=== PATIENT | female | born 1940 | race Caucasian/White ===

== ENCOUNTER 2018-07-28 19:17 | Observation (INO) | payer OTHER ==
--- NOTE | 2018-07-28 20:21 | RAD REPORT ---
EXAM DESCRIPTION: RAD - Chest Single View - 07/28/2018 8:09 pm CLINICAL HISTORY: SWELLING Chest pain. COMPARISON: CHEST SINGLE VIEW dated 07/29/2009 FINDINGS: Portable technique limits examination quality. The lungs are grossly clear. The heart is normal in size. No displaced fractures. IMPRESSION: No acute intrathoracic process suspected.
[2018-07-28 20:23] LABS: Absolute Lymphocytes (CBC) 1.3 K/uL (0.7-4.9); Absolute Monocytes 0.6 K/uL (0.1-1.3); Absolute Neutrophil 3.3 K/uL (1.8-8.0); Basophils % 0.8 % (0-1.3); Hematocrit 36.2 % (36.0-45.0); Lymphocytes % 23.2 % (15.3-44.8); MPV 8.2 fL (7.6-11.3); Monocytes % 11.5 % (3.3-12.3); RBC Red Blood Cell Count 3.94 M/uL (3.86-4.86)
[2018-07-28 20:24] LABS: Protime INR 1.03
[2018-07-28 20:46] LABS: ALT/SGPT 18 U/L (12-78); AST/SGOT 8 U/L (15-37); Albumin 3.5 g/dL (3.4-5.0); Alkaline Phosphatase 75 U/L (45-117); BUN Blood Urea Nitrogen 10 mg/dL (7-18); Bicarbonate 29 mmol/L (21-32); Bilirubin Direct 0.1 mg/dL (0-0.2); Bilirubin Total 0.4 mg/dL (0.2-1.0); Glucose Level 101 mg/dL (74-106); Magnesium 2.2 mg/dL (1.8-2.4); NT PRO-BNP 842 pg/mL (<450); Potassium 4.6 mmol/L (3.5-5.1); Protein, Total 6.7 g/dL (6.4-8.2); Sodium Level 141 mmol/L (136-145); Troponin (Emerg Dept Use Only) < 0.02 ng/mL (0.0-0.045)
--- NOTE | 2018-07-28 21:10 | RAD REPORT ---
EXAM DESCRIPTION: US - Extrem Venous W Compress Cody - 07/28/2018 8:53 pm CLINICAL HISTORY: Pain;Swelling Bilateral leg edema and swelling. COMPARISON: No comparisons TECHNIQUE: Real-time sonographic interrogation of the left and right lower extremity deep venous sys tems was performed. FINDINGS: No evidence of right-sided DVT. Echogenic material with partial compressibility noted left common femoral vein and proximal superficial femoral vein compatible with thrombus. IMPRESSION: Positive for left sided DVT as detailed.
--- NOTE | 2018-07-28 21:15 | ER ---
Nurse's Notes [facility] Name: Rekha Harrell Age: 77 yrs Sex: Female : 1940 Arrival Date: 07/28/2018 Time: 19:18 Bed 8 Private MD: Diagnosis: Acute embolism and thrombosis of other specified deep vein of left lower extremity;Edema, unspecified;Obesity, unspecified;Unspecified combined systolic (congestive) and diastolic (congestive) heart failure Presentation: 07/28 19:25 Presenting complaint: EMS states: Reports she was out of meds for a month and has been ea having leg swelling for a week, pt reported her legs were hurting from swelling. Transition of care: patient was not received from another setting of care. Onset of symptoms was July 28, 2018. Risk Assessment: Do you want to hurt yourself or someone else? Patient reports no desire to harm self or others. Initial Sepsis Screen: Does the patient meet any 2 criteria? No. Patient's initial sepsis screen is negative. Does the patient have a suspected source of infection? No. Patient's initial sepsis screen is negative. Care prior to arrival: None. 19:25 Method Of Arrival: EMS: [facility] ea 19:25 Acuity: RICCARDO 3 ea Historical: - Allergies: 19:31 No Known Allergies; ea - Home Meds: 19:31 Lasix 20 mg Oral tab 1 tab 2 times per day [Active]; Ranitidine Oral [Active]; ea - PMHx: 23:33 CHF; lp1 - PSHx: 23:33 Tubal ligation; lp1 - Immunization history:: Adult Immunizations up to date. - Social history:: Smoking status: Patient/guardian denies using tobacco. - Ebola Screening: : No symptoms or risks identified at this time. - Family history:: not pertinent. Screenin:28 Abuse screen: Denies threats or abuse. Nutritional screening: No deficits noted. ea Tuberculosis screening: No symptoms or risk factors identified. Fall Risk None identified. Assessment: 19:36 General: Appears uncomfortable, Behavior is calm, cooperative, appropriate for age. ea Pain: Complains of pain in right leg and left leg. Neuro: Level of Consciousness is awake, alert, obeys commands, Oriented to person, place, time, situation. Cardiovascular: Heart tones S1 S2 present Patient's skin is warm and dry. Cardiovascular: pitting edema noted to yuri lower extremities. Respiratory: Airway is patent Respiratory effort is even, unlabored, Respiratory pattern is regular, symmetrical, Breath sounds are clear bilaterally. Derm: Skin is normal, Skin temperature is warm. 20:31 Reassessment: Patient and/or family updated on plan of care and expected duration. Pain ea level reassessed. Patient is alert, oriented x 3, equal unlabored respirations, skin warm/dry/pink. 21:00 Reassessment: Patient and/or family updated on plan of care and expected duration. Pain ea level reassessed. Patient is alert, oriented x 3, equal unlabored respirations, skin warm/dry/pink. 22:00 Reassessment: Patient and/or family updated on plan of care and expected duration. Pain ea level reassessed. Patient is alert, oriented x 3, equal unlabored respirations, skin warm/dry/pink. 23:00 Reassessment: Patient and/or family updated on plan of care and expected duration. Pain ea level reassessed. Patient is alert, oriented x 3, equal unlabored respirations, skin warm/dry/pink. 07/29 00:00 Reassessment: Patient and/or family updated on plan of care and expected duration. Pain ea level reassessed. Patient is alert, oriented x 3, equal unlabored respirations, skin warm/dry/pink. Vital Signs: 07/28 19:27 BP 145 / 119; Pulse 83; Resp 20; Temp 97.8; Pulse Ox 100% ; Weight 102.06 kg; Height 5 ea ft. 1 in. (154.94 cm); Pain 8/10; 20:31 BP 131 / 68; Pulse 80; Resp 18; Pulse Ox 100% ; ea 21:00 BP 134 / 57; Pulse 71; Resp 13; Pulse Ox 99% on R/A; lp1 22:51 BP 128 / 53; Pulse 69; Resp 16; Pulse Ox 100% ; ea 23:42 BP 134 / 51; Pulse 69; Resp 17; Pulse Ox 100% on R/A; lp1 07/29 00:00 BP 128 / 50; Pulse 70; Resp 18; Pulse Ox 99% ; ea 07/28 19:27 Body Mass Index 42.51 (102.06 kg, 154.94 cm) ea ED Course: 07/28 19:18 Patient arrived in ED. al2 19:24 Radha García, RN is Primary Nurse. ea 19:26 Triage completed. ea 19:27 Arm band placed on right wrist. Patient placed in an exam room, on a stretcher, on ea pulse oximetry. 19:27 Patient has correct armband on for positive identification. Placed in gown. Bed in low ea position. Call light in reach. Side rails up X2. 19:34 Gigi Goss MD is Attending Physician. [facility] 20:09 XRAY Chest (1 view) In Process Unspecified. EDMS 20:15 Inserted saline lock: 20 gauge in right antecubital area, using aseptic technique. oe Blood collected. 20:52 US Extremity Venous W Compression Yuri In Process Unspecified. EDMS 21:13 Philip Aguillon MD is Hospitalizing Provider. [facility] 21:[address] via stretcher. wy 21:31 CT completed. Patient tolerated procedure well. Patient moved back from CT. 2 22:52 No provider procedures requiring assistance completed. Patient admitted, IV remains in ea place. Administered Medications: 22:09 Drug: Lovenox 100 mg Route: Sub-Q; Site: right lower abdomen; ea 22:36 Follow up: Response: No adverse reaction ea 22:50 Drug: Potassium Effervescent Tablet 25 mEq Route: PO; ea 23:41 Follow up: Response: No adverse reaction lp1 22:51 Drug: Lasix 20 mg Route: IVP; Site: right antecubital; ea 23:46 Follow up: Response: No adverse reaction lp1 Outcome: 21:15 Decision to Hospitalize by Provider. [facility] 23:42 Condition: stable lp1 23:42 Instructed on the need for admit. 23:45 Admitted to Med/surg accompanied by tech, via wheelchair, room 215, with chart, Report lp1 called to PHILIP Milian 07/29 00:10 Patient left the ED. ea Signatures: Dispatcher [employer] EDWI Gigi Goss MD MD cha Pena, Laura, RN RN lp1 Karlo Nieves Orlando oe McGuire, Victoria 2 Radha García, RN Rossy Chavez ea
--- NOTE | 2018-07-28 21:16 | EDPHYS ---
Physician Documentation [facility] Name: Rekha Harrell Age: 77 yrs Sex: Female : 1940 Arrival Date: 07/28/2018 Time: 19:18 Bed 8 Private MD: ED Physician Gigi Goss HPI: 07/28 19:53 This 77 yrs old Female presents to ER via EMS with complaints of lower karissa extremity swelling. 19:53 The patient presents with pain, swelling, tenderness. The complaints affect the right karissa leg and left leg. Context: The problem was sustained at an unknown site. Onset: The symptoms/episode began/occurred 5 day(s) ago. Modifying factors: The symptoms are alleviated by elevating leg, remaining still, the symptoms are aggravated by movement, weight bearing, bending knee. Associated signs and symptoms: The patient has no apparent associated signs or symptoms. The patient presents with decreased range of motion. The complaints affect the right leg and left leg. Historical: - Allergies: 19:31 No Known Allergies; ea - Home Meds: 19:31 Lasix 20 mg Oral tab 1 tab 2 times per day [Active]; Ranitidine Oral [Active]; ea - PMHx: 23:33 CHF; lp1 - PSHx: 23:33 Tubal ligation; lp1 - Immunization history:: Adult Immunizations up to date. - Social history:: Smoking status: Patient/guardian denies using tobacco. - Ebola Screening: : No symptoms or risks identified at this time. - Family history:: not pertinent. ROS: 19:53 Constitutional: Negative for fever, chills, and weight loss, Eyes: Negative for injury, karissa pain, redness, and discharge, ENT: Negative for injury, pain, and discharge, Neck: Negative for injury, pain, and swelling, Cardiovascular: Negative for chest pain, palpitations, and edema, Respiratory: Negative for shortness of breath, cough, wheezing, and pleuritic chest pain, Abdomen/GI: Negative for abdominal pain, nausea, vomiting, diarrhea, and constipation, Back: Negative for injury and pain, : Negative for injury, bleeding, discharge, and swelling, Skin: Negative for injury, rash, and discoloration, Neuro: Negative for headache, weakness, numbness, tingling, and seizure, Psych: Negative for depression, anxiety, suicide ideation, homicidal ideation, and hallucinations, Allergy/Immunology: Negative for hives, rash, and allergies, Endocrine: Negative for neck swelling, polydipsia, polyuria, polyphagia, and marked weight changes, Hematologic/Lymphatic: Negative for swollen nodes, abnormal bleeding, and unusual bruising. 19:53 MS/extremity: Positive for decreased range of motion, pain, swelling, tenderness, of the right leg and left leg. Exam: 19:53 Constitutional: This is a well developed, well nourished patient who is awake, alert, karissa and in no acute distress. Head/Face: Normocephalic, atraumatic. Eyes: Pupils equal round and reactive to light, extra-ocular motions intact. Lids and lashes normal. Conjunctiva and sclera are non-icteric and not injected. Cornea within normal limits. Periorbital areas with no swelling, redness, or edema. ENT: Nares patent. No nasal discharge, no septal abnormalities noted. Tympanic membranes are normal and external auditory canals are clear. Oropharynx with no redness, swelling, or masses, exudates, or evidence of obstruction, uvula midline. Mucous membranes moist. Neck: Trachea midline, no thyromegaly or masses palpated, and no cervical lymphadenopathy. Supple, full range of motion without nuchal rigidity, or vertebral point tenderness. No Meningismus. Chest/axilla: Normal chest wall appearance and motion. Nontender with no deformity. No lesions are appreciated. Cardiovascular: Regular rate and rhythm with a normal S1 and S2. No gallops, murmurs, or rubs. Normal PMI, no JVD. No pulse deficits. Respiratory: Lungs have equal breath sounds bilaterally, clear to auscultation and percussion. No rales, rhonchi or wheezes noted. No increased work of breathing, no retractions or nasal flaring. Abdomen/GI: Soft, non-tender, with normal bowel sounds. No distension or tympany. No guarding or rebound. No evidence of tenderness throughout. Back: No spinal tenderness. No costovertebral tenderness. Full range of motion. Female : Normal external genitalia. Skin: Warm, dry with normal turgor. Normal color with no rashes, no lesions, and no evidence of cellulitis. Neuro: Awake and alert, GCS 15, oriented to person, place, time, and situation. Cranial nerves II-XII grossly intact. Motor strength 5/5 in all extremities. Sensory grossly intact. Cerebellar exam normal. Normal gait. Psych: Awake, alert, with orientation to person, place and time. Behavior, mood, and affect are within normal limits. 19:53 Musculoskeletal/extremity: Extremities: pain, swelling, ROM: full active range of motion, full passive range of motion, Circulation is intact in all extremities. Sensation intact. Compartment Syndrome exam of affected extremity: is normal. DVT Exam: negative Homans' sign noted on exam, no appreciated bluish discoloration, no erythema, no increased warmth, pain, swelling, tenderness. Vital Signs: 19:27 BP 145 / 119; Pulse 83; Resp 20; Temp 97.8; Pulse Ox 100% ; Weight 102.06 kg; Height 5 ea ft. 1 in. (154.94 cm); Pain 8/10; 20:31 BP 131 / 68; Pulse 80; Resp 18; Pulse Ox 100% ; ea 21:00 BP 134 / 57; Pulse 71; Resp 13; Pulse Ox 99% on R/A; lp1 22:51 BP 128 / 53; Pulse 69; Resp 16; Pulse Ox 100% ; ea 23:42 BP 134 / 51; Pulse 69; Resp 17; Pulse Ox 100% on R/A; lp1 07/29 00:00 BP 128 / 50; Pulse 70; Resp 18; Pulse Ox 99% ; ea 07/28 19:27 Body Mass Index 42.51 (102.06 kg, 154.94 cm) ea MDM: 07/28 19:35 Patient medically screened. [facility] 19:56 Data reviewed: vital signs, nurses notes, lab test result(s), EKG, radiologic studies, [facility] plain films, ultrasound. 07/28 19:47 Order name: Basic Metabolic Panel; Complete Time: 20:59 ea 07/28 19:47 Order name: CBC with Diff; Complete Time: 20:46 07/28 19:47 Order name: LFT's; Complete Time: 20:59 ea 07/28 19:47 Order name: Magnesium; Complete Time: 20:59 ea 07/28 19:47 Order name: NT PRO-BNP; Complete Time: 20:59 07/28 19:47 Order name: PT-INR; Complete Time: 20:46 07/28 19:47 Order name: Troponin (emerg Dept Use Only); Complete Time: 20:59 07/28 19:47 Order name: XRAY Chest (1 view); Complete Time: 20:46 07/28 19:53 Order name: Lipase [facility] 07/28 19:53 Order name: US Extremity Venous W Compression Cody; Complete Time: 21:13 [facility] 07/28 19:53 Order name: Urine Culture [facility] 07/28 19:54 Order name: Lipase; Complete Time: 20:46 EDMS 07/28 21:12 Order name: Urine Dipstick--Ancillary (enter results); Complete Time: 22:22 em1 07/28 21:13 Order name: CT Chest For PE Angio [facility] 07/28 19:47 Order name: EKG; Complete Time: 19:48 07/28 19:47 Order name: Cardiac monitoring; Complete Time: 21:13 07/28 19:47 Order name: EKG - Nurse/Tech; Complete Time: 21:13 07/28 19:47 Order name: IV Saline Lock; Complete Time: 21:13 07/28 19:47 Order name: Labs collected and sent; Complete Time: 21:14 07/28 19:47 Order name: O2 Per Protocol; Complete Time: 21:14 07/28 19:47 Order name: O2 Sat Monitoring; Complete Time: 21:14 07/28 19:53 Order name: Urine Dipstick-Ancillary (obtain specimen); Complete Time: 21:11 [facility] 07/28 21:53 Order name: CT; Complete Time: 22:22 EDMS Administered Medications: 22:09 Drug: Lovenox 100 mg Route: Sub-Q; Site: right lower abdomen; ea 22:36 Follow up: Response: No adverse reaction ea 22:50 Drug: Potassium Effervescent Tablet 25 mEq Route: PO; ea 23:41 Follow up: Response: No adverse reaction lp1 22:51 Drug: Lasix 20 mg Route: IVP; Site: right antecubital; ea 23:46 Follow up: Response: No adverse reaction lp1 Disposition: 07/28/18 21:15 Hospitalization ordered by Philip Aguillon for Observation. Preliminary diagnosis are Acute embolism and thrombosis of other specified deep vein of left lower extremity, Edema, unspecified, Obesity, unspecified, Unspecified combined systolic (congestive) and diastolic (congestive) heart failure. - Bed requested for Telemetry/MedSurg (observation). - Status is Observation. ea - Condition is Stable. - Problem is new. - Symptoms have improved. UTI on Admission? No Signatures: Dispatcher [employer] EDGigi Helton MD MD cha Pena, Laura RN RN lp1 Lolita Christianson RN RN Radha García RN RN ea Corrections: (The following items were deleted from the chart) : 21:15 Hospitalization Ordered by Philip Aguillon MD for Observation. Preliminary cg diagnosis is Acute embolism and thrombosis of other specified deep vein of left lower extremity; Edema, unspecified; Obesity, unspecified. Bed requested for Telemetry/MedSurg (observation). Status is Observation. Condition is Stable. Problem is new. Symptoms have improved. UTI on Admission? No. karissa 23:21 22:28 07/28/2018 21:15 Hospitalization Ordered by Philip Aguillon MD for Observation. karissa Preliminary diagnosis is Acute embolism and thrombosis of other specified deep vein of left lower extremity; Edema, unspecified; Obesity, unspecified. Bed requested for Telemetry/MedSurg (observation). Status is Observation. Condition is Stable. Problem is new. Symptoms have improved. UTI on Admission? No. cg 07/29 00:10 07/28 23:21 07/28/2018 21:15 Hospitalization Ordered by Philip Aguillon MD for ea Observation. Preliminary diagnosis is Acute embolism and thrombosis of other specified deep vein of left lower extremity; Edema, unspecified; Obesity, unspecified; Unspecified combined systolic (congestive) and diastolic (congestive) heart failure. Bed requested for Telemetry/MedSurg (observation). Status is Observation. Condition is Stable. Problem is new. Symptoms have improved. UTI on Admission? No. karissa
[2018-07-28] MEDS ORDERED: ENOXAPARIN 100 MG/ML SYR SQ ONE (21:47)
[2018-07-28] MEDS ORDERED: ONDANSETRON 4 MG/2 ML VIAL IV PRN (21:48)
[2018-07-28] MEDS ORDERED: MORPHINE 4 MG/ML SYR IV PRN (21:48)
--- NOTE | 2018-07-28 21:52 | RAD REPORT ---
EXAM DESCRIPTION: CT - Chest For Pe Angio - 07/28/2018 9:32 pm CLINICAL HISTORY: Chest pain. DYSPNEA COMPARISON: No comparisons TECHNIQUE: CT angiogram of the pulmonary arteries was performed with MIP. All CT scans are performed using dose optimization technique as appropriate and may include automated exposure control or mA/KV adjustment according to patient size. FINDINGS: No evidence of pulmonary thromboembolism. No acute aortic finding demonstrated. Mild pulmonary edema is suspected. No significant pericardial or pleural fluid. No concerning bony finding. IMPRESSION: No evidence of pulmonary thromboembolism. Mild CHF.
[2018-07-28 21:53] LABS: Urine Blood TRACE (NEG); Urine Glucose NEGATIVE (NEG); Urine Protein NEGATIVE (NEG)
[2018-07-28] MEDS ORDERED: FUROSEMIDE 20 MG/ 2ML VIAL ONE (22:47)
[2018-07-28] MEDS ORDERED: POTASSIUM 25 MEQ EFFERV TAB ONE (22:47)
[2018-07-29] MEDS: NA CHLORIDE 0.9% 1,000 ML IV SCH ×2 (01:09→11:20)
[2018-07-29] MEDS: ACETAMINOPHEN 500 MG TAB PO PRN ×2 (05:54→18:19)
--- NOTE | 2018-07-29 05:58 | EKG ---
Test Date: 2018-07-28 Test Time: 20:15:38 Title One Reading Teacher: EVELYN MEASUREMENT RESULTS: Intervals: Rate: 68 ID: [id number] QRSD: 74 QT: 442 QTc: 469 [place]: P: 38 ID: [id number] QRS: 12 T: 22 INTERPRETIVE STATEMENTS: Normal sinus rhythm Normal ECG Compared to ECG 07/29/2009 17:37:45 ST (T wave) deviation no longer present Electronically Signed On 07-29-18 05:58:03 FIELD PARTY MANAGER by Ric Bernal
[2018-07-29 06:39] LABS: Absolute Lymphocytes (CBC) 1.8 K/uL (0.7-4.9); Absolute Monocytes 0.8 K/uL (0.1-1.3); Absolute Neutrophil 3.8 K/uL (1.8-8.0); Eosinophils % 2.4 % (0-4.4); Hematocrit 32.2 % (36.0-45.0); Lymphocytes % 27.4 % (15.3-44.8); MPV 8.5 fL (7.6-11.3); Monocytes % 11.4 % (3.3-12.3); RBC Red Blood Cell Count 3.55 M/uL (3.86-4.86)
[2018-07-29 06:42] LABS: Protime INR 1.09
[2018-07-29 06:54] LABS: Bilirubin Total 0.4 mg/dL (0.2-1.0); Potassium 3.9 mmol/L (3.5-5.1); Protein, Total 5.5 g/dL (6.4-8.2)
--- NOTE | 2018-07-29 09:35 | P.HP ---
Certification for Inpatient Patient admitted to: Observation With expected LOS: <2 Midnights Patient will require the following post-hospital care: None Practitioner: I am a practitioner with admitting privileges, knowledge of patient current condition, hospital course, and medical plan of care. Services: Services provided to patient in accordance with Admission requirements found in Title 42 Section 412.3 of the Code of Federal Regulations Patient History Date of Service: 07/28/18 Reason for admission: Lower extremity DVT History of Present Illness: Patient is 77-year-old female who was at home and noticed swelling in her left leg. It has been getting gradually worse for the last few days. It got to a point where she started having some pain since she came into the ER. She states she has been mobile. Denies any immobility. Has not been on any flights. She came into the hospital for further evaluation. in the ER was found have a DVT. She will be start on anti coagulation and admitted to the hospital for observation Allergies No Known Allergies Allergy (Verified 07/29/18 00:26) Home Medications: Calcium Carbonate/Vitamin D3 [Calcium 600-Vit D3 200 Tablet] 1 tab PO BID Cholecalciferol (Vitamin D3) [Vitamin D3] 1 tab PO BID 07/29/18 Furosemide [Lasix] 40 mg PO BID 07/29/18 Ranitidine [Zantac] 150 mg PO BID 07/29/18 - Past Medical/Surgical History Has patient received pneumonia vaccine in the past: Yes Diabetic: No -: Hiatal Hernia -: CHF -: Knee Replacement -: Tubal ligation - Family History Father Family History: Reviewed- Non-Contributory - Social History Smoking Status: Never smoker Alcohol use: No CD- Drugs: No Caffeine use: Yes Place of Residence: Home Review of Systems 10-point ROS is otherwise unremarkable Physical Examination - Vital Signs Temperature: 98.1 F Blood Pressure: 126/60 Pulse: 78 Respirations: 16 Pulse Ox (%): 98 - Physical Exam General: Alert, In no apparent distress, Oriented x3 HEENT: Atraumatic, PERRLA, Mucous membr. moist/pink, EOMI, Sclerae nonicteric Neck: Supple, 2+ carotid pulse no bruit, No LAD, Without JVD or thyroid abnormality Respiratory: Clear to auscultation bilaterally, Normal air movement Cardiovascular: Regular rate/rhythm, Normal S1 S2, No rubs, No murmurs Gastrointestinal: Normal bowel sounds, Soft and benign, Non-distended, No tenderness Musculoskeletal: Swelling, Tenderness Integumentary: No rashes Neurological: Normal gait, Normal speech, Normal strength at 5/5 x4 extr, Normal tone, Sensation intact, Cranial nerves 3-12 intact, Normal affect Lymphatics: No axilla or inguinal lymphadenopathy - Studies Laboratory Data (last 24 hrs) 07/28/18 19:58: Lipase 64 L 07/28/18 19:58: PT 12.1, INR 1.03 07/28/18 19:58: WBC 5.5, Hgb 12.3, Hct 36.2, Plt Count 296 07/28/18 19:58: Sodium 141, Potassium 4.6, BUN 10, Creatinine 0.80, Glucose 101 , Magnesium 2.2, Total Bilirubin 0.4, AST 8 L, ALT 18, Alkaline Phosphatase 75 Assessment & Plan - Problems (Diagnosis) (1) Left leg DVT Current Visit: Yes Status: Acute (2) CHF (congestive heart failure) Current Visit: Yes Status: Acute - Plan Plan: 1. Anti coagulation 2. Diuretic 3. Monitor volume intake 4. GI and DVT prophylax Discharge Plan: Home Plan to discharge in: 24 Hours - Advance Directives Does patient have a Living Will: No Does patient have a Durable POA for Healthcare: No - Code Status/Comfort Care Code Status Assessed: Yes Code Status: Full Code Critical Care: No Time Spent Managing PTS Care (In Minutes): 45
[2018-07-29] MEDS: APIXABAN 5 MG TABLET PO SCH ×2 (09:52→20:26)
--- NOTE | 2018-07-29 13:02 | ECHO ---
HEIGHT: 5 ft 1 in WEIGHT: 240 lb 0 oz DATE OF STUDY: 07/29/[address]: Tarik Rodriguez MD 2-DIMENSIONAL: YES M.MODE: YES DOPPLER: YES COLOR FLOW: YES TDS: PORTABLE: DEFINITY: BUBBLE STUDY: DIAGNOSIS: LOWER EXTREMITY SWELLING CARDIAC HISTORY: CATHERIZATION: SURGERY: PROSTHETIC VALVE: PACEMAKER: MEASUREMENTS (cm) DIASTOLIC (NORMALS) SYSTOLIC (NORMALS) IVSd 1.2 (0.6-1.2) LA Diam 3.6 (1.9-4.0) LVEF 42% LVIDd 3.7 (3.5-5.7) LVIDs 2.9 (2.0-3.5) %FS 20% LVPWd 1.0 (0.6-1.2) Ao Diam 2.5 (2.0-3.7) 2 DIMENSIONAL ASSESSMENT: RIGHT ATRIUM: NORMAL LEFT ATRIUM: NORMAL RIGHT VENTRICLE: NORMAL LEFT VENTRICLE: NORMAL TRICUSPID VALVE: NORMAL MITRAL VALVE: MITRAL ANNULAR CALCIFICATION PULMONIC VALVE: NORMAL AORTIC VALVE: SCLEROSIS PERICARDIAL EFFUSION: NONE AORTIC ROOT: NORMAL LEFT VENTRICULAR WALL MOTION: NORMAL DOPPLER/COLOR FLOW: COMMENTS: NORMAL LEFT VENTRICULAR SIZE AND FUNCTION. NO WALL MOTION ABNORMALITY. AORTIC SCLEROSIS. MITRAL ANNULAR CALCIFICATION. TECHNOLOGIST: SHERITA LANDEROS
--- NOTE | 2018-07-29 18:21 | P.PN ---
Subjective Date of Service: 07/30/18 Chief Complaint: Lower extremity DVT Subjective: No new changes, No C/O voiced, Improving Patient seen and examined at bedside. No family at bedside. Chart reviewed and case discussed with nursing staff. Review of Systems As noted Physical Examination - Vital Signs Temperature: 98.3 F Blood Pressure: 134/61 Pulse: 74 Respirations: 18 Pulse Ox (%): 94 - Physical Exam General: Alert, In no apparent distress, Oriented x3 HEENT: Atraumatic, PERRLA, EOMI Neck: Supple, JVD not distended Respiratory: Clear to auscultation bilaterally, Normal air movement Cardiovascular: Regular rate/rhythm, Normal S1 S2, Edema (1+ bilaterally) Gastrointestinal: Normal bowel sounds, No tenderness Musculoskeletal: No tenderness Integumentary: No rashes Neurological: Normal speech, Normal tone, Normal affect Lymphatics: No axilla or inguinal lymphadenopathy - Studies Laboratory Data (last 24 hrs) 07/28/18 19:58: Lipase 64 L 07/28/18 19:58: PT 12.1, INR 1.03 07/28/18 19:58: WBC 5.5, Hgb 12.3, Hct 36.2, Plt Count 296 07/28/18 19:58: Sodium 141, Potassium 4.6, BUN 10, Creatinine 0.80, Glucose 101 , Magnesium 2.2, Total Bilirubin 0.4, AST 8 L, ALT 18, Alkaline Phosphatase 75 Assessment And Plan - Plan (1) Left leg DVT Current Visit: Yes Status: Acute (2) CHF (congestive heart failure) Diastolic, chronic - Plan Plan: 1. Anti coagulation with Elliquis 10 mg BID 2. Diuretic, IV lasix 3. Monitor volume intake 4. GI and DVT prophylax Dispo: Likely discharge home tomorrow. Discharge Plan: Home Plan to discharge in: 24 Hours Physician Review: Patient Assessed, Agree with Above Assessment and Plan Time Spent Managing PTS Care (In Minutes): 35
[2018-07-30] MEDS: NA CHLORIDE 0.9% 1,000 ML IV SCH (05:37)
[2018-07-30 07:38] LABS: Absolute Lymphocytes (CBC) 1.6 K/uL (0.7-4.9); Absolute Monocytes 0.5 K/uL (0.1-1.3); Basophils % 0.9 % (0-1.3); Hematocrit 31.8 % (36.0-45.0); Lymphocytes % 36.9 % (15.3-44.8); MPV 7.6 fL (7.6-11.3); Monocytes % 12.4 % (3.3-12.3)
[2018-07-30 07:58] LABS: Albumin 2.8 g/dL (3.4-5.0); Bilirubin Total 0.4 mg/dL (0.2-1.0); Potassium 3.7 mmol/L (3.5-5.1); Protein, Total 5.4 g/dL (6.4-8.2)
[2018-07-30] MEDS: APIXABAN 5 MG TABLET PO SCH (09:12)
--- NOTE | 2018-07-30 13:53 | P.SSS ---
Patient History Date of Service: 07/30/18 Reason for admission: Lower extremity DVT History of Present Illness: Patient is 77-year-old female who was at home and noticed swelling in her left leg. It has been getting gradually worse for the last few days. It got to a point where she started having some pain since she came into the ER. She states she has been mobile. Denies any immobility. Has not been on any flights. She came into the hospital for further evaluation. in the ER was found have a DVT. She will be start on anti coagulation and admitted to the hospital for observation Allergies No Known Allergies Allergy (Verified 07/29/18 00:26) Home Medications: RX: Calcium Carbonate/Vitamin D3 [Calcium 600-Vit D3 200 Tablet] 1 tab PO BID RX: Cholecalciferol (Vitamin D3) [Vitamin D3] 1 tab PO BID 07/29/18 RX: Furosemide [Lasix] 40 mg PO BID 07/29/18 RX: Ranitidine [Zantac*] 150 mg PO BID 07/29/18 RX: Apixaban [Eliquis] 10 mg PO BID #60 tablet 07/30/18 - Past Medical/Surgical History Has patient received pneumonia vaccine in the past: Yes Diabetic: No -: Hiatal Hernia -: CHF -: Knee Replacement -: Tubal ligation - Social History Smoking Status: Never smoker Alcohol use: No CD- Drugs: No Caffeine use: Yes Place of Residence: Home Physical Examination - Vital Signs Temperature: 98.3 F Blood Pressure: 134/61 Pulse: 74 Respirations: 18 Pulse Ox (%): 94 - Studies Microbiology Data (last 24 hrs): 07/28/18 21:00 Clean Catch Urine [place] Count - Final BETWEEN 10,000 & 100,000 CFU/ML 07/28/18 21:00 Clean Catch Urine - Final Treatment Summary: Patient was admitted for bilateral lower extremity swelling and was found to have left leg DVT. She was started on eliquis 10 mg BID along with IV lasix. Her symptoms improved . She remained hemodynamically stable throughtout the stay. She was discharged on eliquis 10 mg BID and with instructions to follow up with her Primary care physician in 1 week. Risks vs benefits for anticoagulation explained to patient. She should be on AC for at least 3 months. Patient seen by occupational therapy for home safety evaluation, cleared for discharge without any further OT recommendations. - Disposition Condition: GOOD Patient Discharge Instructions: Please follow up with your primary care physician in 1 week. Please follow up with a technician anatomic pathology in 2-3 weeks. New medications: Prescription for Elliquis (blood thinner) sent to your pharmacy. Diet: AHA (Fluid restriction to) Activity: Ad feng Physician Review: Patient Assessed, Agree with Above Assessment and Plan Time Spent Managing Pts Care (In Minutes): 55
== END 2018-07-30 14:32 | disposition home or self-care (01) ==
LOC: ER 19:17 → ERHOLD 21:15 → 2ND 23:49
PROVIDERS: ADMIT Hospitalist; ATTEND Hospitalist
DX: I82.412 Acute embolism and thrombosis of left femoral vein (principal); I50.32 Chronic diastolic (congestive) heart failure; Z96.659 Presence of unspecified artificial knee joint
CPT/HCPCS: 36415 ×2; 71045; 71275; 80048; 80053 ×2; 80076; 81003; 83690; 83735; 83880; 84484; 85025 ×3; 85610 ×2; 85730; 87086; 87088; 93005; 93306; 93970; 96372; 96374; 97166; 99285; G0378 ×2; J1650; J1940; J7030 ×3; Q9967

== ENCOUNTER 2018-11-28 23:02 | Observation (INO) | payer MEDICARE, OTHER ==
[2018-11-29 00:46] LABS: Absolute Lymphocytes (CBC) 1.7 K/uL (0.7-4.9); Absolute Monocytes 0.7 K/uL (0.1-1.3); Absolute Neutrophil 4.3 K/uL (1.8-8.0); Basophils % 0.7 % (0-1.3); Eosinophils % 1.5 % (0-4.4); Hematocrit 40.7 % (36.0-45.0); Lymphocytes % 24.5 % (15.3-44.8); MPV 8.7 fL (7.6-11.3); Monocytes % 9.9 % (3.3-12.3); RBC Red Blood Cell Count 4.55 M/uL (3.86-4.86)
[2018-11-29] MEDS ORDERED: NA CHLORIDE 0.9% 1,000 ML ONE (00:48)
[2018-11-29 00:49] LABS: Protime INR 1.31
[2018-11-29 01:13] LABS: ALT/SGPT 19 U/L (12-78); AST/SGOT 10 U/L (15-37); Albumin 3.9 g/dL (3.4-5.0); Alkaline Phosphatase 51 U/L (45-117); BUN Blood Urea Nitrogen 54 mg/dL (7-18); Bicarbonate 30 mmol/L (21-32); Bilirubin Direct 0.1 mg/dL (0-0.2); Bilirubin Total 0.4 mg/dL (0.2-1.0); Glucose Level 109 mg/dL (74-106); Magnesium 2.3 mg/dL (1.8-2.4); Potassium 3.7 mmol/L (3.5-5.1); Protein, Total 7.2 g/dL (6.4-8.2); Sodium Level 143 mmol/L (136-145); Troponin (Emerg Dept Use Only) < 0.02 ng/mL (0.0-0.045)
--- NOTE | 2018-11-29 01:51 | ER ---
Nurse's Notes [facility] Name: Rekha Harrell Age: 77 yrs Sex: Female : 1940 Arrival Date: 11/28/2018 Time: 23:06 Bed 5 Private MD: Diagnosis: Hypotension;Chronic combined systolic (congestive) and diastolic (congestive) heart failure;Acute kidney failure Presentation: 11/28 23:21 Presenting complaint: Patient states: she has been feeling dizzy since she started bb taking allopurinol she stopped taking it and symptoms improved but she started taking it again and the dizziness has not improved pt is getting to the point of not being able to stand up and almost fell today. Transition of care: patient was not received from another setting of care. Onset of symptoms was November 28, 2018. Risk Assessment: Do you want to hurt yourself or someone else? Patient reports no desire to harm self or others. Initial Sepsis Screen: Does the patient meet any 2 criteria? No. Patient's initial sepsis screen is negative. Does the patient have a suspected source of infection? No. Patient's initial sepsis screen is negative. Care prior to arrival: None. 23:21 Method Of Arrival: Wheelchair bb 23:21 Acuity: RICCARDO 2 bb Historical: - Allergies: 23:26 No Known Allergies; bb - Home Meds: 23:26 ranitidine HCl 150 mg oral tab 1 tab 2 times per day [Active]; Lasix 40 mg oral tab 2 bb tabs 2 times per day [Active]; allopurinol 100 mg Oral tab 1 tab once daily [Active]; lisinopril 40 mg Oral tab 1 tab once daily [Active]; Eliquis 5 mg oral tab 1 tab 2 times per day [Active]; Vitamins D and B [Active]; Calcium [Active]; - PMHx: 23:26 CHF; Gout; Hypertension; DVT; bb - PSHx: 23:26 Tubal ligation; Cholecystectomy; Knee surgery; cataracts; bb - Immunization history:: Adult Immunizations up to date. - Social history:: Smoking status: Patient/guardian denies using tobacco. - Ebola Screening: : No symptoms or risks identified at this time. Screenin/22 00:46 Abuse screen: Denies threats or abuse. Nutritional screening: No deficits noted. tl2 Tuberculosis screening: No symptoms or risk factors identified. Fall Risk IV access (20 points). Assessment: 11/28 23:40 General: Appears in no apparent distress. comfortable, Behavior is calm, cooperative, tl2 appropriate for age. Pain: Denies pain. Neuro: Level of Consciousness is awake, alert, obeys commands, Oriented to person, place, time, situation, Reports dizziness. Cardiovascular: Denies chest pain. Respiratory: Airway is patent Respiratory effort is even, unlabored, Respiratory pattern is regular, symmetrical. GI: No signs and/or symptoms were reported involving the gastrointestinal system. : No signs and/or symptoms were reported regarding the genitourinary system. Derm: Skin is pink, warm \T\ dry. 11/29 00:30 Reassessment: Patient appears in no apparent distress at this time. Patient and/or tl2 family updated on plan of care and expected duration. Pain level reassessed. Patient is alert, oriented x 3, equal unlabored respirations, skin warm/dry/pink. 02:00 Reassessment: Patient appears in no apparent distress at this time. Patient and/or tl2 family updated on plan of care and expected duration. Pain level reassessed. Patient is alert, oriented x 3, equal unlabored respirations, skin warm/dry/pink. 03:30 Reassessment: Patient appears in no apparent distress at this time. Patient and/or tl2 family updated on plan of care and expected duration. Pain level reassessed. Patient is alert, oriented x 3, equal unlabored respirations, skin warm/dry/pink. VO from Dr. Verma to give 1 additional liter bolus. 04:36 Reassessment: Patient appears in no apparent distress at this time. pt stable and ready tl2 for transport to floor. Vital Signs: 11/28 23:26 BP 103 / 39 LA Sitting (auto/lg); Pulse 74; Resp 16 S; Temp 97.7(O); Pulse Ox 99% on bb R/A; Weight 101.6 kg (R); Height 5 ft. 1 in. (154.94 cm) (R); Pain 0/10; 23:26 BP 87 / 49 RA Sitting (auto/lg); bb 11/29 00:46 BP 92 / 50; Pulse 69; Resp 18; Pulse Ox 98% on R/A; tl2 01:44 BP 120 / 55; Pulse 72; Resp 18; Pulse Ox 99% on R/A; tl2 02:54 BP 108 / 45; Pulse 68; Resp 18; Pulse Ox 98% on R/A; tl2 03:53 BP 92 / 51; Pulse 68; Resp 18; Pulse Ox 97% on R/A; tl2 03:53 BP 101 / 50; Pulse 66; Resp 17; Pulse Ox 99% on R/A; mt 11/28 23:26 Body Mass Index 42.32 (101.60 kg, 154.94 cm) bb ED Course: 11/28 23:06 Patient arrived in ED. es 23:23 Triage completed. bb 23:26 Arm band placed on Patient placed in an exam room, on a stretcher, on pulse oximetry. bb Family accompanied patient. 23:53 Saqib Lui PA is PHCP. jr8 23:53 Yuri Weber MD is Attending Physician. jr8 11/29 00:37 Initial lab(s) drawn, by me, sent to lab. Inserted saline lock: 22 gauge in left bb antecubital area, using aseptic technique. Blood collected. 00:45 Kaylyn Castillo, PHILIP is Primary Nurse. tl2 00:46 Patient has correct armband on for positive identification. Placed in gown. Bed in low tl2 position. Call light in reach. Side rails up X2. Adult w/ patient. 01:49 Anastasiia Butcher MD is Hospitalizing Provider. jr8 02:03 X-ray completed. Portable x-ray completed in exam room. Patient tolerated procedure kw well. 02:06 XRAY Chest (1 view) In Process Unspecified. EDMS 04:36 No provider procedures requiring assistance completed. Patient admitted, IV remains in tl2 place. Administered Medications: 00:45 Drug: NS 0.9% 500 ml Route: IV; Rate: bolus; Site: left antecubital; tl2 01:45 Follow up: IV Status: Completed infusion; IV Intake: 500ml tl2 03:15 Drug: NS 0.9% 1000 ml Route: IV; Rate: 1 bolus; Site: left antecubital; tl2 04:38 Follow up: IV Status: Completed infusion; IV Intake: 1000ml tl2 Intake: 01:45 IV: 500ml; Total: 500ml. tl2 04:38 IV: 1000ml; Total: 1500ml. tl2 Outcome: 01:49 Decision to Hospitalize by Provider. jr8 04:36 Admitted to Tele accompanied by nurse, family with patient, via stretcher, room 405, tl2 with chart, Report called to PHILIP Hamilton 04:36 Condition: stable 04:36 Discharge instructions given to patient, Instructed on the need for admit. 04:39 Patient left the ED. tl2 Signatures: Dispatcher [employer] Jenae Monzon Brenda, RN RN Jenelle Carlson Josh, PA PA jr8 Kaylyn Castillo RN RN tl2 Elsa Looney mt
--- NOTE | 2018-11-29 01:51 | EDPHYS ---
Physician Documentation [facility] Name: Rekha Harrell Age: 77 yrs Sex: Female : 1940 Arrival Date: 11/28/2018 Time: 23:06 Bed 5 Private MD: ED Physician Yuri Weber HPI: 11/29 00:23 This 77 yrs old Female presents to ER via Wheelchair with complaints of jr8 Dizziness, Shoulder Pain. 00:23 The patient presents with feeling faint. Onset: The symptoms/episode began/occurred jr8 gradually, 3 week(s) ago, and became worse 2 day(s) ago. Context: occurred at home, occurred while the patient was standing. Modifying factors: The symptoms are alleviated by lying down, the symptoms are aggravated by nothing. Associated signs and symptoms: Pertinent positives: shortness of breath. Severity of symptoms: At their worst the symptoms were moderate in the emergency department the symptoms are unchanged. Patient's baseline: Neuro: alert and fully oriented, Motor: no deficits, Ambulation: walks without assistance, Speech: normal. The patient has not experienced similar symptoms in the past. The patient has not recently seen a physician. Patient stated that she has had dizziness with standing for over three weeks now. Worse over the past two days. Patient describes it as a since of being lightheaded and wanting to pass out. More short of breath with exertion as well . Historical: - Allergies: 11/28 23:26 No Known Allergies; bb - Home Meds: 23:26 ranitidine HCl 150 mg oral tab 1 tab 2 times per day [Active]; Lasix 40 mg oral tab 2 bb tabs 2 times per day [Active]; allopurinol 100 mg Oral tab 1 tab once daily [Active]; lisinopril 40 mg Oral tab 1 tab once daily [Active]; Eliquis 5 mg oral tab 1 tab 2 times per day [Active]; Vitamins D and B [Active]; Calcium [Active]; - PMHx: 23:26 CHF; Gout; Hypertension; DVT; bb - PSHx: 23:26 Tubal ligation; Cholecystectomy; Knee surgery; cataracts; bb - Immunization history:: Adult Immunizations up to date. - Social history:: Smoking status: Patient/guardian denies using tobacco. - Ebola Screening: : No symptoms or risks identified at this time. ROS: 11/29 00:23 Eyes: Negative for injury, pain, redness, and discharge, ENT: Negative for injury, jr8 pain, and discharge, Neck: Negative for injury, pain, and swelling, Cardiovascular: Negative for chest pain, palpitations, and edema, Abdomen/GI: Negative for abdominal pain, nausea, vomiting, diarrhea, and constipation, Back: Negative for injury and pain, MS/Extremity: Negative for injury and deformity, Skin: Negative for injury, rash, and discoloration. Respiratory: Positive for dyspnea on exertion, shortness of breath, Negative for cough, hemoptysis, orthopnea, sputum production, wheezing. Neuro: Positive for dizziness, near syncope. Exam: 00:23 Eyes: Pupils equal round and reactive to light, extra-ocular motions intact. Lids and jr8 lashes normal. Conjunctiva and sclera are non-icteric and not injected. Cornea within normal limits. Periorbital areas with no swelling, redness, or edema. ENT: Nares patent. No nasal discharge, no septal abnormalities noted. Tympanic membranes are normal and external auditory canals are clear. Oropharynx with no redness, swelling, or masses, exudates, or evidence of obstruction, uvula midline. Mucous membranes moist. Neck: Trachea midline, no thyromegaly or masses palpated, and no cervical lymphadenopathy. Supple, full range of motion without nuchal rigidity, or vertebral point tenderness. No Meningismus. Cardiovascular: Regular rate and rhythm with a normal S1 and S2. No gallops, murmurs, or rubs. Normal PMI, no JVD. No pulse deficits. Respiratory: Lungs have equal breath sounds bilaterally, clear to auscultation and percussion. No rales, rhonchi or wheezes noted. No increased work of breathing, no retractions or nasal flaring. Abdomen/GI: Soft, non-tender, with normal bowel sounds. No distension or tympany. No guarding or rebound. No evidence of tenderness throughout. Back: No spinal tenderness. No costovertebral tenderness. Full range of motion. Skin: Warm, dry with normal turgor. Normal color with no rashes, no lesions, and no evidence of cellulitis. MS/ Extremity: Pulses equal, no cyanosis. Neurovascular intact. Full, normal range of motion. Neuro: Awake and alert, GCS 15, oriented to person, place, time, and situation. Cranial nerves II-XII grossly intact. Motor strength 5/5 in all extremities. Sensory grossly intact. Cerebellar exam normal. Normal gait. Vital Signs: 11/28 23:26 BP 103 / 39 LA Sitting (auto/lg); Pulse 74; Resp 16 S; Temp 97.7(O); Pulse Ox 99% on bb R/A; Weight 101.6 kg (R); Height 5 ft. 1 in. (154.94 cm) (R); Pain 0/10; 23:26 BP 87 / 49 RA Sitting (auto/lg); bb 11/29 00:46 BP 92 / 50; Pulse 69; Resp 18; Pulse Ox 98% on R/A; tl2 01:44 BP 120 / 55; Pulse 72; Resp 18; Pulse Ox 99% on R/A; tl2 02:54 BP 108 / 45; Pulse 68; Resp 18; Pulse Ox 98% on R/A; tl2 03:53 BP 92 / 51; Pulse 68; Resp 18; Pulse Ox 97% on R/A; tl2 03:53 BP 101 / 50; Pulse 66; Resp 17; Pulse Ox 99% on R/A; mt 11/28 23:26 Body Mass Index 42.32 (101.60 kg, 154.94 cm) MDM: 11/28 23:53 Patient medically screened. [facility] 11/29 01:46 Data reviewed: vital signs, nurses notes, lab test result(s), EKG, radiologic studies, [facility] plain films, and as a result, I will discharge patient. Data interpreted: Pulse oximetry: on room air is 99 %. Interpretation: normal. Counseling: I had a detailed discussion with the patient and/or guardian regarding: the historical points, exam findings, and any diagnostic results supporting the discharge/admit diagnosis, lab results, radiology results, the need for further work-up and treatment in the hospital. 11/29 00:03 Order name: Basic Metabolic Panel; Complete Time: :37 11/29 00:03 Order name: CBC with Diff; Complete Time: 00:55 11/29 00:03 Order name: LFT's; Complete Time: :37 11/29 00:03 Order name: Magnesium; Complete Time: :11/29 00:03 Order name: NT PRO-BNP; Complete Time: 01:37 11/29 00:03 Order name: PT-INR; Complete Time: 00:55 11/29 00:03 Order name: Troponin (emerg Dept Use Only); Complete Time: 01:37 11/29 00:03 Order name: XRAY Chest (1 view) 11/29 00:04 Order name: EKG; Complete Time: 00:06 11/29 00:04 Order name: Cardiac monitoring; Complete Time: 00:45 11/29 00:04 Order name: EKG - Nurse/Tech; Complete Time: 00:44 11/29 00:04 Order name: IV Saline Lock; Complete Time: 00:35 11/29 00:04 Order name: Labs collected and sent; Complete Time: 00:35 11/29 00:04 Order name: O2 Per Protocol; Complete Time: 00:18 11/29 00:04 Order name: O2 Sat Monitoring; Complete Time: 00:18 Administered Medications: 00:45 Drug: NS 0.9% 500 ml Route: IV; Rate: bolus; Site: left antecubital; tl2 01:45 Follow up: IV Status: Completed infusion; IV Intake: 500ml tl2 03:15 Drug: NS 0.9% 1000 ml Route: IV; Rate: 1 bolus; Site: left antecubital; tl2 04:38 Follow up: IV Status: Completed infusion; IV Intake: 1000ml tl2 Disposition: 11/30 01:32 Co-signature as Attending Physician, Yuri Weber MD. Disposition: 11/29/18 01:49 Hospitalization ordered by Anastasiia Butcher for Inpatient Admission. Preliminary diagnosis are Hypotension, Chronic combined systolic (congestive) and diastolic (congestive) heart failure, Acute kidney failure. - Bed requested for Telemetry/MedSurg (Inpatient). - Status is Inpatient Admission. tl2 - Condition is Stable. - Problem is new. - Symptoms have improved. UTI on Admission? No Signatures: Dispatcher [employer] EDMS Leydi Alexis RN RN bb Roszak, Josh, PA PA jr8 Lolita Christianson RN RN cg Knox, Taylor, RN RN tl2 Yuri Weber MD MD gs Corrections: (The following items were deleted from the chart) 11/29 03:48 01:49 Hospitalization Ordered by Anastasiia Butcher MD for Inpatient Admission. Preliminary cg diagnosis is Hypotension; Chronic combined systolic (congestive) and diastolic (congestive) heart failure; Acute kidney failure. Bed requested for Telemetry/MedSurg (Inpatient). Status is Inpatient Admission. Condition is Stable. Problem is new. Symptoms have improved. UTI on Admission? No. jr8 04:39 03:48 11/29/2018 01:49 Hospitalization Ordered by Anastasiia Butcher MD for Inpatient tl2 Admission. Preliminary diagnosis is Hypotension; Chronic combined systolic (congestive) and diastolic (congestive) heart failure; Acute kidney failure. Bed requested for Telemetry/MedSurg (Inpatient). Status is Inpatient Admission. Condition is Stable. Problem is new. Symptoms have improved. UTI on Admission? No. cg
--- NOTE | 2018-11-29 03:16 | P.HP ---
Certification for Inpatient Patient admitted to: Observation With expected LOS: <2 Midnights Practitioner: I am a practitioner with admitting privileges, knowledge of patient current condition, hospital course, and medical plan of care. Services: Services provided to patient in accordance with Admission requirements found in Title 42 Section 412.3 of the Code of Federal Regulations Patient History Date of Service: 11/29/18 Reason for admission: acute renal injury, volume depletion History of Present Illness: Mr Harrell is a 77 years old woman with history of HTN, gout, GERD, CHF, last ECHO done in 07/27 showing EF 42%, she is anticoagulated with Eliquis due to history of DVT, who came to ED complaining of dizziness. She blame her symptoms to Allopurinol, since she start taking that about 1 month ago. She is also taking Lasix 80 mg daily and 3 month ago start taking lisinopril 40 mg daily. The patient states that her dizziness are mostly when she is standing up. She denied nausea, vomiting, chest pain or SOB. No fever or chills. The patient states that she is drinking a lot of water. Lab work remarkable for celevated creatinine 2.51 (last recorded in 07/27 creatinine was 0.7). Her BP was on the lower side 87/49 HR 74. At my encounter she was on non-distress, still symptomatic. Allergies No Known Allergies Allergy (Verified 07/29/18 00:26) Home medications list reviewed: Yes Home Medications: Calcium Carbonate/Vitamin D3 [Calcium 600-Vit D3 200 Tablet] 1 tab PO BID Cholecalciferol (Vitamin D3) [Vitamin D3] 1 tab PO BID 07/29/18 Furosemide [Lasix] 40 mg PO BID 07/29/18 Ranitidine [Zantac*] 150 mg PO BID 07/29/18 Apixaban [Eliquis] 10 mg PO BID 30 Days #120 tablet 07/30/18 - Past Medical/Surgical History Diabetic: No -: Hiatal Hernia -: CHF -: history of DVT -: gout -: Knee Replacement -: Tubal ligation -: cholecystectomy -: cataracts - Social History Smoking Status: Never smoker Alcohol use: No CD- Drugs: No Caffeine use: Yes Place of Residence: Home Review of Systems 10-point ROS is otherwise unremarkable Physical Examination - Physical Exam General: Alert, In no apparent distress HEENT: Atraumatic, PERRLA, Mucous membr. moist/pink, EOMI, Sclerae nonicteric Neck: Supple, 2+ carotid pulse no bruit, No LAD, Without JVD or thyroid abnormality Respiratory: Clear to auscultation bilaterally, Normal air movement Cardiovascular: Regular rate/rhythm, Normal S1 S2, Systolic murmur (3/6 aortic area) Gastrointestinal: Normal bowel sounds, No tenderness Musculoskeletal: No tenderness Integumentary: No rashes Neurological: Normal speech, Normal strength at 5/5 x4 extr, Normal tone, Normal affect Lymphatics: No axilla or inguinal lymphadenopathy - Studies Laboratory Data (last 24 hrs) 11/29/18 00:30: PT 15.3 H, INR 1.31 11/29/18 00:30: WBC 6.8, Hgb 13.7, Hct 40.7, Plt Count 303 11/29/18 00:30: Sodium 143, Potassium 3.7, BUN 54 H, Creatinine 2.51 H, Glucose 109 H, Magnesium 2.3, Total Bilirubin 0.4, AST 10 L, ALT 19, Alkaline Phosphatase 51 Assessment and Plan - Problems (Diagnosis) (1) Acute renal injury Current Visit: Yes Status: Acute (2) Volume depletion Current Visit: Yes Status: Acute (3) History of DVT (deep vein thrombosis) Current Visit: Yes Status: Acute (4) Gout Current Visit: Yes Status: Acute Qualifiers: Gout site: unspecified site Gout etiology: unspecified cause Chronicity: chronic Presence of tophus: without tophus Qualified Code(s): [id number].[id number] - Chronic gout, unspecified, without tophus (tophi) (5) GERD (gastroesophageal reflux disease) Current Visit: Yes Status: Acute Qualifiers: Esophagitis presence: esophagitis presence not specified Qualified Code(s) : K21.9 - Gastro-esophageal reflux disease without esophagitis - Plan The patient will be admitted to the hospital due to dizziness in context of volume depletion, leading with acute renal injury, perhaps acute on CKD at this point. The patient medication combination might be the etiology of her symptoms. Will order a new ECHO, IV fluids and nephrology consult. She needs to adjust medication and dose before discharge home. - Advance Directives Does patient have a Living Will: No Does patient have a Durable POA for Healthcare: No - Code Status/Comfort Care Code Status Assessed: Yes Code Status: Full Code
[2018-11-29] MEDS ORDERED: NA CHLORIDE 0.9% 500 ML ONE (03:51)
[2018-11-29] MEDS ORDERED: ONDANSETRON 4 MG/2 ML VIAL IV PRN (04:35)
[2018-11-29] MEDS: NA CHLORIDE 0.9% 1,000 ML IV SCH ×3 (05:08→19:00)
[2018-11-29 05:29] LABS: Urine Appearance CLOUDY; Urine Bilirubin NEGATIVE (NEG); Urine Blood NEGATIVE (NEG); Urine Color YELLOW; Urine Glucose NEGATIVE (NEG); Urine Protein NEGATIVE (NEG); Urine Specific Gravity 1.015 (1.005-1.030); Urine Urobilinogen 0.2 mg/dL (0.2-1.0)
[2018-11-29 05:32] LABS: Urine Microscopic Reflex ORDER UMIC
[2018-11-29 06:01] LABS: Urine Bacteria 20-50 /HPF (<20); Urine Culture Reflex Order REFLEXED; Urine RBC NONE SEEN /HPF (NONE SEEN)
--- NOTE | 2018-11-29 07:44 | EKG ---
Test Date: 2018-11-29 Test Time: 00:41:43 Regenerator Operator: MARGIE MEASUREMENT RESULTS: Intervals: Rate: 63 AL: 188 QRSD: 82 QT: 424 QTc: 433 [place]: P: 33 AL: 188 QRS: 11 T: 24 INTERPRETIVE STATEMENTS: Normal sinus rhythm Normal ECG Compared to ECG 07/28/2018 20:15:38 no significant change from previous ECG Electronically Signed On 11-29-18 07:43:22 CDT by Ric Bernal
--- NOTE | 2018-11-29 09:01 | RAD REPORT ---
EXAM DESCRIPTION: RAD - Chest Single View - 11/29/2018 2:06 am CLINICAL HISTORY: Dyspnea, past history of CHF COMPARISON: July 2018 TECHNIQUE: AP portable chest image was obtained 0059 hours . FINDINGS: No focal lung parenchymal process. Lung markings are similar to comparison. Heart and vasc ulature are normal. No measurable pleural effusion and no pneumothorax. No acute bony abnormality see n. No acute aortic findings suspected. IMPRESSION: No acute cardiopulmonary process. No significant interval change.
--- NOTE | 2018-11-29 09:48 | RAD REPORT ---
EXAM DESCRIPTION: US - Renal Ultrasound-Complete - 11/29/2018 9:27 am CLINICAL HISTORY: Acute kidney injury COMPARISON: CT study July 2009 FINDINGS: The right kidney measures 8.9 x 3.2 x 4.7 cm. The left kidney measures 8.2 x 4.1 x 3.6 cm . Renal cortical thickness and echogenicity are normal. No hydronephrosis or suspicious renal mass. Bladder imaging was limited. IMPRESSION: No hydronephrosis or suspicious renal mass. Cortical thickness and echogenicity are not outside of normal range.
[2018-11-29] MEDS ORDERED: KCL 20 MEQ/100 mL IVPB 20 MEQ/100 ML BAG IV SCH (12:00)
[2018-11-29 12:15] LABS: Urine Protein/Creatinine Ratio 0.12 ratio (<0.15)
--- NOTE | 2018-11-29 16:39 | CON ---
Date of Consultation: 11/29/2018 Additional Consulting Physician: Dr. Mercer. Reason For Consultation: Elevated BUN and creatinine, fluid management. History Of Present Illness: This is a pleasant 77-year-old female with a significant past medical hi story of hypertension, congestive heart failure, nonischemic, ejection fraction back in July 2018 , 42%, GERD, DVT on anticoagulation, the patient came, was in her regular state of health up to almos t 10 days when she visited with her primary care, found to have elevated uric acid. At that time, th e patient was started on allopurinol. The patient started feeling sick. For that reason, she was st opped, then rechallenged, again she felt sick, but after stopping again the allopurinol did not feel well. Still with nausea, occasional vomiting, no diarrhea. For that reason, the patient was directe d to come to the emergency room. On the emergency room, the patient found to have elevated BUN and c reatinine, creatinine up to 2.5. For that reason, the patient was admitted and we have been consulte d. The patient denied taking any nonsteroidal, no IV contrast, no new medication except the allopuri nol. According to her, she has been on Lasix and lisinopril for a long time. No fever or chills. T he patient was started on IV fluids. The patient denied any mouth ulcer. Denies any rashes. Past Medical History: Include; 1.Nonischemic congestive heart failure. 2.GERD. 3.DVT. 4.Hypertension. Social History: Denies smoking. Denies drinking. Denies drug abuse. Family History: Positive for hypertension. Past Surgical History: Include knee replacement, tubal ligation and cholecystectomy. Home Medications: Include calcium with vitamin D, cholecalciferol, Lasix 40 three times a day, ranit idine and Eliquis, allopurinol. Review of Systems: Head and Neck: No red eye. No ear pain. : No polyuria, no dysuria, no hematuria. 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 Respiratory: Has no shortness of breath. Cardiovascular: No chest pain. Endocrine: No polydipsia. Skin: No rash. GI: Has nausea without any vomiting. Skin: No rash. Neuro: No neuropathy. Musculoskeletal: Has knee pain. Physical Examination: Vital Signs: When I saw the patient, blood pressure 98/49, pulse of 64. Afebrile. Chest: Clear to auscultation. Heart: S1 and S2. Systolic murmur. Abdomen: Soft, nontender. Extremities: No edema. Laboratory Data: Sodium 143, potassium 3.7, bicarb 30, BUN 54, creatinine 2.5, calcium 9.6, albumin 3.9. WBC 6.8, H and H 13.7/40.7, platelets 303, neutrophil 63, eosinophil 1.5%, absolute count of th e eosinophilia is 100. Urinalysis specific gravity of 1.015, WBC of 10, bacteria of 50. Chest x-ray , interstitial infiltration. Renal ultrasound, small kidney bilateral of 8.9 and 8.2. Current Medications: The patient on include IV fluid 100 per hour, allopurinol. Assessment And Plan: Acute kidney injury on normal kidney function back in July possible AIN/pre renal secondary to over diuresis. 1.I agree with holding the diuresis. I am going to send for serology and will send for urine eosino rodrick. We will start the patient on IV fluid and we will follow up. 2.Given the present of the anemia, I am going to send for SPEP. 3.Hypertension, currently hypotension. Hold all the blood pressure medications especially STEPHANIE inhib itor and Lasix. Continue IV fluid. 4.Gout, given the possibility of AIN, DC allopurinol. 5.DVT with current kidney function, I am going to decrease the Eliquis to 2.5. 6.Hypokalemia, I am going to supplement cautiously and we will follow up the lab of the patient. 7.Gastroenteritis. Continue symptomatic treatment. Thank you, Dr. Mercer, for allowing us to participate in the care of your patient. WIL Voice ID: [id number] Report ID: [id number]
[2018-11-29] MEDS: APIXABAN 2.5 MG TABLET PO SCH (20:47)
[2018-11-29] MEDS ORDERED: APIXABAN 5 MG TABLET PO SCH (21:00)
[2018-11-30] MEDS: NA CHLORIDE 0.9% 1,000 ML IV SCH (01:07)
[2018-11-30 04:37] LABS: RBC Red Blood Cell Count 3.69 M/uL (3.86-4.86)
[2018-11-30 05:18] LABS: Ferritin 340.7 ng/mL (8-388); Folic Acid, (Folate) 17.4 ng/mL (3.1-17.5); Phosphorus 2.2 mg/dL (2.5-4.9); Potassium 4.2 mmol/L (3.5-5.1); Thyroid Stimulating Hormone 3.06 uIU/mL (0.360-3.740)
[2018-11-30 07:37] LABS: Rheumatoid Factor NEG (NEG)
[2018-11-30] MEDS ORDERED: ALLOPURINOL 100 MG TAB PO SCH (09:00)
[2018-11-30] MEDS: APIXABAN 2.5 MG TABLET PO SCH ×2 (09:19→20:49)
--- NOTE | 2018-11-30 11:52 | P.PN ---
Subjective Date of Service: 11/30/18 Chief Complaint: acute renal injury, volume depletion Subjective: Tolerating diet, Ambulating, Improving, Working w/ PT, Doing well Review of Systems 10-point ROS is otherwise unremarkable Physical Examination - Vital Signs Temperature: 97.4 F Blood Pressure: 111/50 Pulse: 63 Respirations: 20 Pulse Ox (%): 99 - Physical Exam General: Alert, In no apparent distress HEENT: Atraumatic, PERRLA, EOMI Neck: Supple, JVD not distended Respiratory: Clear to auscultation bilaterally, Normal air movement Cardiovascular: Regular rate/rhythm, Normal S1 S2 Gastrointestinal: Normal bowel sounds, No tenderness Musculoskeletal: No tenderness Integumentary: No rashes Neurological: Normal speech, Normal tone, Normal affect Lymphatics: No axilla or inguinal lymphadenopathy - Studies Medications List Reviewed: Yes Assessment And Plan - Current Problems (Diagnosis) (1) UTI (urinary tract infection) Current Visit: Yes Status: Acute Plan: UA with concern for UTI. Urine culture pending -Prelim + for gram - rods -Started on iv rocephin -Will switch when culture results Qualifiers: Urinary tract infection type: acute cystitis Hematuria presence: without hematuria Qualified Code(s): N30.00 - Acute cystitis without hematuria (2) Acute renal injury Current Visit: Yes Status: Acute Plan: EV 2.2 to Volume depletion vs Medication -Held losartan and allopurinol for now -IV fluids per nephrology reccs -Lab work and Imaging done to r.o other intrinsic caused of EV (3) GERD (gastroesophageal reflux disease) Current Visit: Yes Status: Chronic Qualifiers: Esophagitis presence: esophagitis presence not specified Qualified Code(s) : K21.9 - Gastro-esophageal reflux disease without esophagitis (4) History of DVT (deep vein thrombosis) Current Visit: Yes Status: Chronic Discharge Plan: Home Plan to discharge in: 48 Hours - Code Status/Comfort Care Code Status Assessed: Yes Critical Care: No
--- NOTE | 2018-11-30 12:05 | ECHO ---
HEIGHT: 5 ft 1 in WEIGHT: 218 lb 6.4 oz DATE OF STUDY: 11/29/[address]: Anastasiia Verma MD 2-DIMENSIONAL: YES M.MODE: YES DOPPLER: YES COLOR FLOW: YES TDS: NO PORTABLE: NO DEFINITY: NO BUBBLE STUDY: NO DIAGNOSIS: SYSTOLIC MURMUR CARDIAC HISTORY: CATHERIZATION: SURGERY: PROSTHETIC VALVE: PACEMAKER: MEASUREMENTS (cm) DIASTOLIC (NORMALS) SYSTOLIC (NORMALS) IVSd 0.9 (0.6-1.2) LA Diam 3.7 (1.9-4.0) LVEF 53% LVIDd 4.1 (3.5-5.7) LVIDs 3.0 (2.0-3.5) %FS 27% LVPWd 0.9 (0.6-1.2) Ao Diam 2.6 (2.0-3.7) 2 DIMENSIONAL ASSESSMENT: RIGHT ATRIUM: NORMAL LEFT ATRIUM: NORMAL RIGHT VENTRICLE: NORMAL LEFT VENTRICLE: NORMAL TRICUSPID VALVE: NORMAL MITRAL VALVE: NORMAL PULMONIC VALVE: NORMAL AORTIC VALVE: SCLEROSIS PERICARDIAL EFFUSION: NONE AORTIC ROOT: NORMAL LEFT VENTRICULAR WALL MOTION: NORMAL DOPPLER/COLOR FLOW: MILD TRICUSPID REGURGITATION. NORMAL RIGHT VENTRICULAR SYSTOLIC PRESSURE. COMMENTS: NORMAL 2D ECHOCARDIOGRAM. MILD TRICUSPID REGURGITATION. AORTIC SCLEROSIS WITH NO STENOSIS. TECHNOLOGIST: Agnieszka FLANAGAN
[2018-11-30] MEDS ORDERED: CEFTRIAXONE/SWI 1gm 1 GM/10 ML SYR IV SCH (12:30)
--- NOTE | 2018-11-30 19:04 | PN ---
Date of Progress Note: 11/30/2018 Subjective: The patient was admitted with acute kidney injury, possible of prerenal/AL, to rule out AIN secondary to allopurinol. Physical Examination: Vital Signs: When I saw the patient, blood pressure was 104/45, pulse of 71. The patient had good urine output. Chest: Clear to auscultation. Heart: S1, S2. Systolic murmur. Abdomen: Soft, nontender. Extremities: No edema. Laboratory Data: H and H 13.7/40.7, platelets 303. Eosinophil just 100. Sodium 148, potassium 4.2, bicarb 26, BUN down to 41, creatinine down to 148. GFR up to 34. TSAT of 34. Ferritin 340. PTH 190. TSH 3.6. Folate within normal limit. PC ratio 0.1. Serology still pending. Urine eosinophil still pending. Current Medications: The patient on ceftriaxone, Eliquis, Zofran. Urine culture growing gram negative. Renal ultrasound; ovarian cyst 8.9/8.2. Kidney size, no hydro. Assessment And Plan: 1. Acute kidney injury secondary to prerenal, given improvement doubt to be as AIN. We will keep holding hydration. We will continue to monitor. 2. Urinary tract infection. I agree with ceftriaxone. We will follow up with primary. Follow up culture. Giving the sepsis picture of the patient and the acute kidney injury, I am going to increase ceftriaxone to 2 g daily and we will follow up the patient. 3. Hypertension, currently hypotension secondary to sepsis, secondary to UTI, urosepsis as above. Keep holding blood pressure medication. WIL Voice ID: [id number] Report ID: [id number] [facility]ITALNathen
[2018-11-30] MEDS: CEFTRIAXONE/SWI 1gm 1 GM/10 ML SYR IVP SCH (20:49)
[2018-12-01 04:40] LABS: Phosphorus 2.1 mg/dL (2.5-4.9); Potassium 4.4 mmol/L (3.5-5.1)
[2018-12-01] MEDS ORDERED: CEFTRIAXONE 1 GM/NS 50 ML 1 GM/50 ML BAG IV SCH (09:00)
[2018-12-01] MEDS: CEFTRIAXONE/SWI 1gm 1 GM/10 ML SYR IVP SCH (10:29)
[2018-12-01] MEDS: APIXABAN 2.5 MG TABLET PO SCH (10:29)
--- NOTE | 2018-12-01 11:20 | P.SSS ---
Patient History Date of Service: 12/01/18 Reason for admission: acute renal injury, volume depletion History of Present Illness: Mr Harrell is a 77 years old woman with history of HTN, gout, GERD, CHF, last ECHO done in 07/27 showing EF 42%, she is anticoagulated with Eliquis due to history of DVT, who came to ED complaining of dizziness. She blame her symptoms to Allopurinol, since she start taking that about 1 month ago. She is also taking Lasix 80 mg daily and 3 month ago start taking lisinopril 40 mg daily. The patient states that her dizziness are mostly when she is standing up. She denied nausea, vomiting, chest pain or SOB. No fever or chills. The patient states that she is drinking a lot of water. Lab work remarkable for celevated creatinine 2.51 (last recorded in 07/27 creatinine was 0.7). Her BP was on the lower side 87/49 HR 74. At my encounter she was on non-distress, still symptomatic. Allergies No Known Allergies Allergy (Verified 07/29/18 00:26) Home Medications: RX: Allopurinol [Zyloprim*] 100 mg PO DAILY 11/29/18 RX: Apixaban [Eliquis *] 5 mg PO BID 11/29/18 RX: Furosemide [Lasix*] 40 mg PO BIDL 11/29/18 RX: Ranitidine [Zantac*] 150 mg PO BID 11/29/18 levoFLOXacin [Levaquin] 500 mg PO DAILY #14 tab 12/01/18 - Past Medical/Surgical History Has patient received pneumonia vaccine in the past: Yes Diabetic: No -: Hiatal Hernia -: CHF -: history of DVT -: gout -: Knee Replacement -: Tubal ligation -: cholecystectomy -: cataracts - Social History Smoking Status: Never smoker Alcohol use: No CD- Drugs: No Caffeine use: Yes Place of Residence: Home Review of Systems 10-point ROS is otherwise unremarkable Physical Examination - Vital Signs Temperature: 97.5 F Blood Pressure: 97/49 Pulse: 66 Respirations: 17 Pulse Ox (%): 98 - Physical Exam General: Alert, In no apparent distress HEENT: Atraumatic, PERRLA, Mucous membr. moist/pink, EOMI, Sclerae nonicteric Neck: Supple, 2+ carotid pulse no bruit, No LAD, Without JVD or thyroid abnormality Respiratory: Clear to auscultation bilaterally, Normal air movement Cardiovascular: Regular rate/rhythm, Normal S1 S2 Gastrointestinal: Normal bowel sounds, No tenderness Musculoskeletal: No tenderness Integumentary: No rashes Neurological: Normal gait, Normal speech, Normal strength at 5/5 x4 extr, Normal tone, Normal affect Lymphatics: No axilla or inguinal lymphadenopathy - Diagnosis (Problem(s)) (1) UTI (urinary tract infection) Current Visit: Yes Status: Resolved Plan: UA with concern for UTI. Resolved now -culture positive for E. coli sensitive to p.o. medication -Dc home on p.o. Levaquin. Bactrim and Augmentin were not considered due to recent acute kidney injury Qualifiers: Urinary tract infection type: acute cystitis Hematuria presence: without hematuria Qualified Code(s): N30.00 - Acute cystitis without hematuria (2) Acute renal injury Current Visit: Yes Status: Acute Plan: EV 2.2 to Volume depletion vs Medication. Resolved now -nephrology on board agree with discharge home today -hold lisinopril on discharge -BUN creatinine improved markedly today (3) GERD (gastroesophageal reflux disease) Current Visit: Yes Status: Chronic Qualifiers: Esophagitis presence: esophagitis presence not specified Qualified Code(s) : K21.9 - Gastro-esophageal reflux disease without esophagitis (4) History of DVT (deep vein thrombosis) Current Visit: Yes Status: Chronic Treatment Summary: Overall she did well while here in the hospital Patient was initially admitted to the hospital for acute kidney injury most likely secondary to dehydration versus medications versus urinary tract infection. Patient was started on IV fluids here in the hospital had marked improvement in her BUN and creatinine. Was also started on antibiotics for UTI. Urine culture was positive for E. coli and thus was switched over to p.o. Levaquin. Patient then was discharged home under stable condition when she was doing well. Patient was asked to stop taking her lisinopril continued taking her Lasix only. Patient was also asked to follow up with primary care provider to discuss polypharmacy and see if she can be taken off of couple other medication that could be harmful for her kidneys if her blood pressure is controlled. Patient demonstrate understanding and thus was discharged home under stable condition - Disposition Disposition: ROUTINE DISCHARGE Condition: GOOD Patient Discharge Instructions: Please f.u with PCP And Nephrology in 1 to 2 week post discharge. New medication. levaquin 500mg daily Diet: Regular Activity: Ad feng
--- NOTE | 2018-12-01 15:50 | PN ---
Date of Progress Note: 12/01/2018 Subjective: The patient was admitted with sepsis, UTI, acute kidney injury. Physical Examination: Vital Signs: When I saw the patient blood pressure 112/50, pulse of 65, afebrile. Chest: Clear to auscultation. Heart: S1 and S2, regular. Abdomen: Soft and nontender. Extremities: Trace edema. Laboratory Data: WBC 6.8, H and H 13.7/40.7, platelet of 303. Sodium 146, potassium 4.4, bicarb 23, BUN 33, creatinine down to 1.3 close to her baseline, GFR of 40, calcium 8.1, phosphorus 2.1. Current Medications: The patient on its include: 1.Ceftriaxone. 2.Eliquis. 3.Zofran. Assessment And Plan: 1.Acute kidney injury as above, multifactorial. Prerenal. Toxic acute tubular necrosis secondary t o urinary tract infection. Poor perfusion, ATN. AIN has been ruled out. I am going to keep holding IV fluid. The patient cleared from the renal standpoint for discharge planning. 2.Urinary tract infection secondary to Escherichia coli. We will discontinue ceftriaxone. We will switch the patient to Augmentin. 3.Atrial fibrillation. Given the improvement in the kidney function, we can go back to 5 mg for the time being of the Eliquis. 4.Hypertension, currently blood pressure on the lower side with the presence of acute kidney injury. Hold all blood pressure medication. Again, the patient cleared from the renal standpoint for discharge planning to follow up in the office in 2 weeks. WIL Voice ID: [id number] Report ID: [id number]
[2018-12-01] MEDS ORDERED: AMOX/K CLAV 875 MG TAB PO SCH (21:00)
[2018-12-01] MEDS ORDERED: APIXABAN 5 MG TABLET PO SCH (21:00)
[2018-12-02 16:19] LABS: HIV AG/AB 4TH GEN Non-reactive (Non-reactive)
[2018-12-02 20:15] LABS: Hepatitis C Virus RNA (PCR)log <1.18 log IU/mL
[2018-12-03 05:13] LABS: HBsAG Nonreactive (Nonreactive)
[2018-12-05 12:53] LABS: P-ANCA Anti-Myeloperoxidase Ab <1.0 AI (<1.0)
[2018-12-05 22:41] LABS: Alpha-1-Globulins 0.2 g/dL (0.2-0.3); Alpha-2-Globulins 0.5 g/dL (0.5-0.9); Gamma Globulins 0.7 g/dL (0.8-1.7); INTERPRETATION REPORT
[2018-12-08 18:45] LABS: Scleroderma Antibody (Scl-70) <1.0 AI (<1.0)
== END 2018-12-01 13:20 | disposition home or self-care (01) ==
LOC: ER 23:02 → ERHOLD 11-29 02:55 → 4TH 11-29 04:03
PROVIDERS: ADMIT Internal Medicine; ATTEND Internal Medicine
DX: N30.00 Acute cystitis without hematuria (principal); B96.20 Unspecified Escherichia coli [E. coli] as the cause of diseases classified elsewhere; N17.9 Acute kidney failure, unspecified; K21.9 Gastro-esophageal reflux disease without esophagitis; E87.6 Hypokalemia; I11.0 Hypertensive heart disease with heart failure; I50.9 Heart failure, unspecified; Z86.718 Personal history of other venous thrombosis and embolism; Z96.659 Presence of unspecified artificial knee joint
CPT/HCPCS: 96361; 93005; 93306; 87088; 85025; 87086; 80048 ×2; 36415 ×3; 88108; 83735; 86430; 85610; 85044; 80076; 83520; 80069 ×2; 84443; 87077; 87186; 82570; 84484; 82728; 82746; 82607; 83540; 83970; 86704; 86317; 87389; 86038; 86225; 83880; 86160 ×2; 87340; 86706; 84156; 84466; 86235; 86021 ×2; 87522; 84165; 71045; 76770; 97116 ×3; 97161; 97530 ×2; 96360; 99285; J0696 ×3; J7030 ×4; G0378 ×2; 81003; 81015

== ENCOUNTER 2019-02-02 04:10 | Observation (INO) | payer MEDICARE, OTHER ==
[2019-02-02] MEDS ORDERED: NA CHLORIDE 0.9% 500 ML ONE (05:04)
[2019-02-02] MEDS ORDERED: THIAMINE 200 MG/2 ML INJ ONE (05:04)
[2019-02-02] MEDS ORDERED: ASPIRIN 81 MG CHEWABLE TABLET ONE (05:04)
[2019-02-02 05:35] LABS: Absolute Lymphocytes (CBC) 1.3 K/uL (0.7-4.9); Basophils % 0.5 % (0-1.3); Eosinophils % 0.9 % (0-4.4); Hematocrit 44.9 % (36.0-45.0); Lymphocytes % 14.9 % (15.3-44.8); MPV 8.4 fL (7.6-11.3); Monocytes % 9.1 % (3.3-12.3); RBC Red Blood Cell Count 4.93 M/uL (3.86-4.86)
[2019-02-02 05:36] LABS: Protime INR 1.27
--- NOTE | 2019-02-02 05:47 | EDPHYS ---
Physician Documentation [facility] Name: Rekha Harrell Age: 78 yrs Sex: Female : 1940 Arrival Date: 02/02/2019 Time: 04:16 Bed 8 Private MD: ED Physician Gigi Goss HPI: 02/02 04:22 This 78 yrs old Female presents to ER via Unassigned with complaints of karissa Syncope. 04:22 The patient has experienced syncope, collapsed. Onset: The symptoms/episode karissa began/occurred just prior to arrival. Duration: This was a single episode, that lasted 3 second(s). Context: the episode(s) was witnessed, by family, son. Associated injury: The patient did not suffer any apparent associated injury. Associated signs and symptoms: The patient has no apparent associated signs or symptoms. Current symptoms: Currently, the patient is not experiencing any symptoms. The patient has experienced similar episodes in the past, multiple times. Historical: - Allergies: 04:28 Allopurinol; lp1 - Home Meds: 04:28 Eliquis 5 mg Oral tab 1 tab 2 times per day [Active]; Lasix 40 mg Oral tab 2 tabs 2 lp1 times per day [Active]; ranitidine HCl 150 mg Oral tab 1 tab 2 times per day [Active]; - PMHx: 04:28 CHF; DVT; Gout; Hypertension; lp1 - PSHx: 04:28 Tonsillectomy; Cholecystectomy; Knee surgery; Appendectomy; lp1 - Immunization history:: Adult Immunizations up to date. - Social history:: Smoking status: Patient/guardian denies using tobacco. - Family history:: not pertinent. - Ebola Screening: : No symptoms or risks identified at this time. ROS: 04:22 Constitutional: Negative for fever, chills, and weight loss, Eyes: Negative for injury, karissa pain, redness, and discharge, ENT: Negative for injury, pain, and discharge, Neck: Negative for injury, pain, and swelling, Cardiovascular: Negative for chest pain, palpitations, and edema, Respiratory: Negative for shortness of breath, cough, wheezing, and pleuritic chest pain, Abdomen/GI: Negative for abdominal pain, nausea, vomiting, diarrhea, and constipation, Back: Negative for injury and pain, : Negative for injury, bleeding, discharge, and swelling, MS/Extremity: Negative for injury and deformity, Skin: Negative for injury, rash, and discoloration, Psych: Negative for depression, anxiety, suicide ideation, homicidal ideation, and hallucinations, Allergy/Immunology: Negative for hives, rash, and allergies, Endocrine: Negative for neck swelling, polydipsia, polyuria, polyphagia, and marked weight changes, Hematologic/Lymphatic: Negative for swollen nodes, abnormal bleeding, and unusual bruising. 04:22 Neuro: Positive for syncope, weakness. Exam: 04:22 Constitutional: This is a well developed, well nourished patient who is awake, alert, karissa and in no acute distress. Head/Face: Normocephalic, atraumatic. Eyes: Pupils equal round and reactive to light, extra-ocular motions intact. Lids and lashes normal. Conjunctiva and sclera are non-icteric and not injected. Cornea within normal limits. Periorbital areas with no swelling, redness, or edema. ENT: Nares patent. No nasal discharge, no septal abnormalities noted. Tympanic membranes are normal and external auditory canals are clear. Oropharynx with no redness, swelling, or masses, exudates, or evidence of obstruction, uvula midline. Mucous membranes moist. Neck: Trachea midline, no thyromegaly or masses palpated, and no cervical lymphadenopathy. Supple, full range of motion without nuchal rigidity, or vertebral point tenderness. No Meningismus. Chest/axilla: Normal chest wall appearance and motion. Nontender with no deformity. No lesions are appreciated. Cardiovascular: Regular rate and rhythm with a normal S1 and S2. No gallops, murmurs, or rubs. Normal PMI, no JVD. No pulse deficits. Respiratory: Lungs have equal breath sounds bilaterally, clear to auscultation and percussion. No rales, rhonchi or wheezes noted. No increased work of breathing, no retractions or nasal flaring. Abdomen/GI: Soft, non-tender, with normal bowel sounds. No distension or tympany. No guarding or rebound. No evidence of tenderness throughout. Back: No spinal tenderness. No costovertebral tenderness. Full range of motion. Female : Normal external genitalia. Skin: Warm, dry with normal turgor. Normal color with no rashes, no lesions, and no evidence of cellulitis. MS/ Extremity: Pulses equal, no cyanosis. Neurovascular intact. Full, normal range of motion. Neuro: Awake and alert, GCS 15, oriented to person, place, time, and situation. Cranial nerves II-XII grossly intact. Motor strength 5/5 in all extremities. Sensory grossly intact. Cerebellar exam normal. Normal gait. Psych: Awake, alert, with orientation to person, place and time. Behavior, mood, and affect are within normal limits. 04:22 Musculoskeletal/extremity: DVT Exam: No signs of deep vein thrombosis. no pain, no swelling, no tenderness, negative Homans' sign noted on exam, no appreciated bluish discoloration, no erythema, no increased warmth. 04:26 Neck: External neck: is normal, no acute changes, no bruits. [facility] 04:26 Cardiovascular: Rate: normal, Rhythm: regular, Pulses: no pulse deficits are appreciated, Heart sounds: normal, normal S1and S2, no S3 or S4, no murmur, no rub, no gallop, Edema: is not appreciated, JVD: is not appreciated. Vital Signs: 04:24 BP 142 / 75; Pulse 72; Resp 18; Temp 98.1(O); Pulse Ox 98% on R/A; Weight 102.06 kg; lp1 Height 5 ft. 1 in. (154.94 cm); Pain 0/10; 06:09 BP 125 / 57 Supine; Pulse 70; jd3 06:10 BP 111 / 77 Sitting; jd3 06:11 BP 141 / 83; Pulse 94; Resp 17 S; Pulse Ox 99% on R/A; Pain 0/10; jd3 08:16 BP 144 / 84; Pulse 87; Resp 16; Pulse Ox 100% on R/A; Pain 0/10; hb 09:00 BP 137 / 83; Pulse 88; Resp 16; Pulse Ox 98% on R/A; hb 04:24 Body Mass Index 42.51 (102.06 kg, 154.94 cm) 1 Procedures: 07:03 Peripheral line: by aseptic technique a peripheral line was placed in the left external karissa jugular vein. MDM: 04:19 Patient medically screened. [facility] 04:26 Data reviewed: vital signs, nurses notes, lab test result(s), EKG, radiologic studies, [facility] CT scan, plain films. 02/02 04:21 Order name: Basic Metabolic Panel [facility] 02/02 04:21 Order name: CBC with Diff [facility] 02/02 04:21 Order name: LFT's; Complete Time: 06:21 [facility] 02/02 04:21 Order name: Magnesium; Complete Time: 06:21 [facility] 02/02 04:21 Order name: NT PRO-BNP; Complete Time: 06:21 [facility] 02/02 04:21 Order name: PT-INR; Complete Time: 05:45 [facility] 02/02 04:21 Order name: Troponin (emerg Dept Use Only); Complete Time: 06:21 [facility] 02/02 04:21 Order name: Lipase; Complete Time: 06:21 [facility] 02/02 04:21 Order name: Urine Culture [facility] 02/02 04:21 Order name: ETOH Level; Complete Time: 06:21 [facility] 02/02 04:22 Order name: Basic Metabolic Panel; Complete Time: 06:21 [facility] 02/02 04:22 Order name: CBC with Automated Diff; Complete Time: 05:45 [facility] 02/02 04:53 Order name: D-Dimer; Complete Time: 06:21 [facility] 02/02 08:16 Order name: Urinalysis [facility] 02/02 04:21 Order name: XRAY Chest (1 view) [facility] 02/02 04:21 Order name: CT Head Brain wo Cont [facility] 02/02 07:47 Order name: Brain Wo Cont [facility] 02/02 08:16 Order name: CBC with Automated Diff [facility] 02/02 08:16 Order name: CBC with Automated Diff [facility] 02/02 08:16 Order name: Comprehensive Metabolic Panel [facility] 02/02 08:16 Order name: Comprehensive Metabolic Panel [facility] 02/02 08:16 Order name: Magnesium [facility] 02/02 08:16 Order name: Magnesium [facility] 02/02 08:16 Order name: Phosphorus [facility] 02/02 08:16 Order name: Phosphorus [facility] 02/02 08:16 Order name: Troponin I [facility] 02/02 08:16 Order name: Troponin I [facility] 02/02 08:16 Order name: Troponin I [facility] 02/02 04:21 Order name: EKG; Complete Time: 04:24 [facility] 02/02 04:21 Order name: Cardiac monitoring; Complete Time: 04:23 [facility] 02/02 04:21 Order name: EKG - Nurse/Tech; Complete Time: 04:23 [facility] 02/02 04:21 Order name: IV Saline Lock; Complete Time: 05:09 [facility] 02/02 04:21 Order name: Labs collected and sent; Complete Time: 05:09 [facility] 02/02 04:21 Order name: O2 Per Protocol; Complete Time: 04:23 [facility] 02/02 04:21 Order name: O2 Sat Monitoring; Complete Time: 04:23 [facility] 02/02 04:26 Order name: Orthostatics; Complete Time: 06:16 [facility] 02/02 07:07 Order name: CONS Physician Consult [facility] 02/02 08:16 Order name: Heart Healthy [facility] 02/02 08:16 Order name: Echo with Doppler [facility] 02/02 08:16 Order name: Carotid Artery Bilateral [facility] Administered Medications: 04:53 Not Given (Duplicate Order): Aspirin 162 mg PO once; give if ct negative [facility] 05:09 Drug: NS 0.9% 500 ml Route: IV; Rate: bolus; Site: right antecubital; jd3 05:09 Drug: Thiamine 100 mg Route: IV; Rate: bolus; Site: right antecubital; jd3 06:28 Drug: Potassium Effervescent Tablet 50 mEq Route: PO; jd3 06:59 Drug: Pepcid 20 mg Route: IVP; Site: left jugular; jd3 08:18 Drug: Magnesium Sulfate 1 grams Route: IVPB; Infused Over: 1 hrs; Site: left jugular; hb 08:18 Drug: NS 0.9% with KCl 20 mEq/L 1000 ml Route: IV; Rate: 125 ml/hr; Site: left jugular; hb Disposition: 02/02/19 05:46 Hospitalization ordered by Philip Aguillon for Observation. Preliminary diagnosis are Syncope and collapse, Hypokalemia, Hypomagnesemia. - Bed requested for Telemetry/MedSurg (observation). - Status is Observation. hb - Condition is Stable. - Problem is new. - Symptoms have improved. UTI on Admission? No Signatures: Dispatcher [employer] [facility] Gigi Goss MD MD cha Solis, Maria ms Pena, Laura, RN RN lp1 Chaya Knowles, PHILIP RN Hector Collins RN RN jd3 Corrections: (The following items were deleted from the chart) 05:46 Hospitalization Ordered by Philip Aguillon MD for Observation. Preliminary karissa diagnosis is Syncope and collapse. Bed requested for Telemetry/MedSurg (observation). Status is Observation. Condition is Stable. Problem is new. Symptoms have improved. UTI on Admission? No. karissa 07:47 07:08 MR STROKE PROTOCOL+MRI.RAD.AIDAZ ordered. [facility] ED[facility] 07:48 07:07 Stroke Protocol ordered. [facility] 09:18 06:23 02/02/2019 05:46 Hospitalization Ordered by Philip Aguillon MD for Observation. ms Preliminary diagnosis is Syncope and collapse; Hypokalemia; Hypomagnesemia. Bed requested for Telemetry/MedSurg (observation). Status is Observation. Condition is Stable. Problem is new. Symptoms have improved. UTI on Admission? No. karissa 10:05 09:18 02/02/2019 05:46 Hospitalization Ordered by Philip Aguillon MD for Observation. hb Preliminary diagnosis is Syncope and collapse; Hypokalemia; Hypomagnesemia. Bed requested for Telemetry/MedSurg (observation). Status is Observation. Condition is Stable. Problem is new. Symptoms have improved. UTI on Admission? No. ms
--- NOTE | 2019-02-02 05:47 | ER ---
Nurse's Notes [facility] Name: Rekha Harrell Age: 78 yrs Sex: Female : 1940 Arrival Date: 02/02/2019 Time: 04:16 Bed 8 Private MD: Diagnosis: Syncope and collapse;Hypokalemia;Hypomagnesemia Presentation: 02/02 04:20 Presenting complaint: EMS states: Called for patient who passed out while sitting at lp1 table playing kaleos with friends, EMS arrived 15 min later, patient alert and oriented x4, denies any chest pain, dizziness; Patient states feeling hot, dizzy, before episode; symptoms resolved on arrival to ED. Transition of care: patient was not received from another setting of care. Onset of symptoms was February 02, 2019 at 03:30. Risk Assessment: Do you want to hurt yourself or someone else? Patient reports no desire to harm self or others. Initial Sepsis Screen: Does the patient meet any 2 criteria? No. Patient's initial sepsis screen is negative. Does the patient have a suspected source of infection? No. Patient's initial sepsis screen is negative. Care prior to arrival: Glucose check: 111. 04:20 Method Of Arrival: EMS: [facility] lp1 04:20 Acuity: RICCARDO 3 lp1 Historical: - Allergies: 04:28 Allopurinol; lp1 - Home Meds: 04:28 Eliquis 5 mg Oral tab 1 tab 2 times per day [Active]; Lasix 40 mg Oral tab 2 tabs 2 lp1 times per day [Active]; ranitidine HCl 150 mg Oral tab 1 tab 2 times per day [Active]; - PMHx: 04:28 CHF; DVT; Gout; Hypertension; lp1 - PSHx: 04:28 Tonsillectomy; Cholecystectomy; Knee surgery; Appendectomy; lp1 - Immunization history:: Adult Immunizations up to date. - Social history:: Smoking status: Patient/guardian denies using tobacco. - Family history:: not pertinent. - Ebola Screening: : No symptoms or risks identified at this time. Screenin:42 Abuse screen: Denies threats or abuse. Nutritional screening: No deficits noted. jd3 Tuberculosis screening: No symptoms or risk factors identified. Fall Risk Ambulatory Aid- None/Bed Rest/Nurse Assist (0 pts). Gait- Normal/Bed Rest/Wheelchair (0 pts) Mental Status- Oriented to own ability (0 pts). Total Lopez Fall Scale indicates No Risk (0-24 pts). Assessment: 04:40 General: Appears in no apparent distress. comfortable, Behavior is calm, cooperative, jd3 appropriate for age. Pain: Denies pain. Neuro: Level of Consciousness is awake, alert, obeys commands, Oriented to person, place, time, situation, Sander And Buffer are equal bilaterally Moves all extremities. Full function Speech is normal, Facial symmetry appears normal, Intact Reports a syncopal episode. Cardiovascular: Heart tones S1 S2 present Capillary refill < 3 seconds Patient's skin is warm and dry. Rhythm is sinus rhythm with unifocal PVCs. Respiratory: Airway is patent Respiratory effort is even, unlabored, Respiratory pattern is regular, symmetrical, Breath sounds are clear bilaterally. GI: No signs and/or symptoms were reported involving the gastrointestinal system. : No signs and/or symptoms were reported regarding the genitourinary system. EENT: No signs and/or symptoms were reported regarding the EENT system. Derm: Skin is intact, Skin is dry, Skin is normal, Skin temperature is warm. Musculoskeletal: Circulation, motion, and sensation intact. Range of motion: intact in all extremities. 05:30 Reassessment: Patient appears in no apparent distress at this time. Patient and/or jd3 family updated on plan of care and expected duration. Pain level reassessed. Patient is alert, oriented x 3, equal unlabored respirations, skin warm/dry/pink. Patient denies pain at this time. 06:10 Reassessment: Patient appears in no apparent distress at this time. No changes from jd3 previously documented assessment. Patient and/or family updated on plan of care and expected duration. Pain level reassessed. Patient is alert, oriented x 3, equal unlabored respirations, skin warm/dry/pink. pt's IV infiltrated. provider notified. awaiting orders. 07:16 Reassessment: Report received from Jessa PALACIOS and Ham PALACIOS. Pt in MRI at this time. hb 08:18 Reassessment: Pt returned from MRI, NAD, denies pain/dizziness/SOB. NS+KCL and Mag hb started to left EJ, admission ordered, awaiting room assignment at this time. Family remains at bedside. 09:00 Reassessment: Patient appears in no apparent distress at this time. No changes from hb previously documented assessment. Patient and/or family updated on plan of care and expected duration. Pain level reassessed. Patient is alert, oriented x 3, equal unlabored respirations, skin warm/dry/pink. Vital Signs: 04:24 BP 142 / 75; Pulse 72; Resp 18; Temp 98.1(O); Pulse Ox 98% on R/A; Weight 102.06 kg; lp1 Height 5 ft. 1 in. (154.94 cm); Pain 0/10; 06:09 BP 125 / 57 Supine; Pulse 70; jd3 06:10 BP 111 / 77 Sitting; jd3 06:11 BP 141 / 83; Pulse 94; Resp 17 S; Pulse Ox 99% on R/A; Pain 0/10; jd3 08:16 BP 144 / 84; Pulse 87; Resp 16; Pulse Ox 100% on R/A; Pain 0/10; hb 09:00 BP 137 / 83; Pulse 88; Resp 16; Pulse Ox 98% on R/A; hb 04:24 Body Mass Index 42.51 (102.06 kg, 154.94 cm) lp1 ED Course: 04:16 Patient arrived in ED. jd3 04:19 Gigi Goss MD is Attending Physician. karissa 04:23 Hector Hackett, PHILIP is Primary Nurse. jd3 04:24 Triage completed. lp1 04:25 Arm band placed on right wrist. lp1 04:28 Patient has correct armband on for positive identification. Placed in gown. Bed in low lp1 position. Call light in reach. night monitor on. Pulse ox on. NIBP on. 04:41 X-ray completed. Portable x-ray completed in exam room. Patient tolerated procedure kw well. 04:42 XRAY Chest (1 view) In Process Unspecified. EDMS 05:00 Accessed ,peripheral vein via ultrasound, utilizing static ultrasound technique using lp1 ,sterile technique, per hospital protocol. Clean \T\ dry. Good blood return. Flushes easily. 20g IV to R AC. 05:46 Philip Aguillon MD is Hospitalizing Provider. kairssa 05:57 CT Head Brain wo Cont In Process Unspecified. EDMS 06:50 Inserted saline lock: 18 gauge in left EJ, using aseptic technique. placed by Dr. brenden Goss. 07:47 Brain Wo Cont In Process Unspecified. EDMS 08:39 Carotid Artery Bilateral In Process Unspecified. EDMS 09:28 Echocardiogram with Doppler done by x ray technologist. tc 09:48 No provider procedures requiring assistance completed. Patient admitted, IV remains in hb place. Administered Medications: 04:53 Not Given (Duplicate Order): Aspirin 162 mg PO once; give if ct negative karissa 05:09 Drug: NS 0.9% 500 ml Route: IV; Rate: bolus; Site: right antecubital; jd3 05:09 Drug: Thiamine 100 mg Route: IV; Rate: bolus; Site: right antecubital; jd3 06:28 Drug: Potassium Effervescent Tablet 50 mEq Route: PO; jd3 06:59 Drug: Pepcid 20 mg Route: IVP; Site: left jugular; jd3 08:18 Drug: Magnesium Sulfate 1 grams Route: IVPB; Infused Over: 1 hrs; Site: left jugular; hb 08:18 Drug: NS 0.9% with KCl 20 mEq/L 1000 ml Route: IV; Rate: 125 ml/hr; Site: left jugular; hb Outcome: 05:46 Decision to Hospitalize by Provider. karissa 09:48 Admitted to Tele accompanied by judson, family with patient, room 423, with chart. hb 09:48 Condition: stable 09:48 Instructed on the need for admit, Demonstrated understanding of instructions. 10:05 Patient left the ED. hb Signatures: Dispatcher [employer] Gigi Noriega MD MD cha Whitley, Kimberlee kw Pena, Laura, RN RN lp1 Thelma Nguyen, foreclosure field inspector EKG [facility] Chaya Knowles RN RN hb Davies, Jonathon, RN RN jd3 Corrections: (The following items were deleted from the chart) 06:13 06:10 Reassessment: Patient appears in no apparent distress at this time. No changes jd3 from previously documented assessment. Patient and/or family updated on plan of care and expected duration. Pain level reassessed. Patient is alert, oriented x 3, equal unlabored respirations, skin warm/dry/pink. jd3
[2019-02-02 06:10] LABS: ALT/SGPT 19 U/L (12-78); AST/SGOT 11 U/L (15-37); Alkaline Phosphatase 81 U/L (45-117); BUN Blood Urea Nitrogen 22 mg/dL (7-18); Bicarbonate 29 mmol/L (21-32); Bilirubin Direct 0.2 mg/dL (0-0.2); Bilirubin Total 0.6 mg/dL (0.2-1.0); Glucose Level 120 mg/dL (74-106); Lipase 84 U/L (73-393); Magnesium 1.7 mg/dL (1.8-2.4); NT PRO-BNP 176 pg/mL (<450); Protein, Total 8.3 g/dL (6.4-8.2); Sodium Level 138 mmol/L (136-145); Troponin (Emerg Dept Use Only) < 0.02 ng/mL (0.0-0.045)
[2019-02-02 06:14] LABS: Potassium 2.8 mmol/L (3.5-5.1)
[2019-02-02] MEDS ORDERED: POTASSIUM 25 MEQ EFFERV TAB ONE (06:40)
[2019-02-02] MEDS ORDERED: NS KCL 20MEQ 1,000 ML IV ONE (07:06)
[2019-02-02] MEDS ORDERED: FAMOTIDINE 20 MG/2 ML VIAL IV ONE (07:07)
[2019-02-02] MEDS ORDERED: MAGNESIUM SULFATE 1 gm IVPB 1 GM/100 ML BAG IV ONE (07:07)
--- NOTE | 2019-02-02 07:53 | EKG ---
Test Date: 2019-02-02 Test Time: 04:21:56 Director Clinical Applications: DELGADO MEASUREMENT RESULTS: Intervals: Rate: 71 MD: 178 QRSD: 78 QT: 448 QTc: 486 [place]: P: 36 MD: 178 QRS: 11 T: 32 INTERPRETIVE STATEMENTS: Sinus rhythm with premature atrial complexes with aberrant conduction Otherwise normal ECG Compared to ECG 11/29/2018 00:41:43 Atrial premature complex(es) now present Aberrant conduction of supraventricular beat(s) now present Electronically Signed On 02-02-19 07:52:11 CDT by Ric Bernal
[2019-02-02] MEDS ORDERED: ONDANSETRON 4 MG/2 ML VIAL IV PRN (08:05)
[2019-02-02] MEDS ORDERED: ACETAMINOPHEN 500 MG TAB PO PRN (08:05)
--- NOTE | 2019-02-02 08:12 | RAD REPORT ---
EXAM DESCRIPTION: RAD - Chest Single View - 02/02/2019 4:44 am CLINICAL HISTORY: COUGH Chest pain. COMPARISON: Chest Single View dated 11/29/2018; Chest Single View dated 07/28/2018; CHEST SINGLE VIEW dated 07/29/2009 FINDINGS: Portable technique limits examination quality. The lungs are grossly clear. The heart is normal in size. No displaced fractures. IMPRESSION: No acute intrathoracic process suspected.
--- NOTE | 2019-02-02 08:31 | RAD REPORT ---
EXAM DESCRIPTION: MRI - Brain Wo Cont - 02/02/2019 7:58 am CLINICAL HISTORY: DIZZINESS Headache, drowsiness, CVA symptomology COMPARISON: Head Brain Wo Cont dated 02/02/2019 TECHNIQUE: Multi-sequence, multiplanar MR imaging of the brain was performed without contrast. FINDINGS: No intracranial hemorrhage, hydrocephalus or extra-axial fluid collections.Mild chronic mi crovascular ischemic changes are seen in the periventricular and deep white matter. No edema or shift of midline structures. No findings to suspect brain mass. DWI is negative for acute CVA. Midline structures are normally formed. Mastoid air cells and paranasal sinuses are clear. IMPRESSION: No acute intracranial process is identified.
--- NOTE | 2019-02-02 08:56 | P.HP ---
Certification for Inpatient Patient admitted to: Observation With expected LOS: <2 Midnights Patient will require the following post-hospital care: None Practitioner: I am a practitioner with admitting privileges, knowledge of patient current condition, hospital course, and medical plan of care. Services: Services provided to patient in accordance with Admission requirements found in Title 42 Section 412.3 of the Code of Federal Regulations Patient History Date of Service: 02/02/19 Reason for admission: Syncopal event History of Present Illness: Patient is a 78yo who presents to the hospital with syncopal event. Patient was playing dominos when she suddenly passed out. She came into the ER for evaluation. Patient may have had an arrhythmia or a neurologic event. Patient will get workup in the hospital with carotid Doppler and an echocardiogram as well as telemetry monitoring. Patient does not remember any event like this ever happened before. Will get Cardiology consultation as well as patient may need outpatient event monitor or loop recorder. Allergies No Known Allergies Allergy (Verified 07/29/18 00:26) Home Medications: Allopurinol [Zyloprim*] 100 mg PO DAILY 11/29/18 Apixaban [Eliquis *] 5 mg PO BID 11/29/18 Furosemide [Lasix*] 40 mg PO BIDL 11/29/18 Ranitidine [Zantac*] 150 mg PO BID 11/29/18 levoFLOXacin [Levaquin] 500 mg PO DAILY #14 tab 12/01/18 - Past Medical/Surgical History Diabetic: No -: Hiatal Hernia -: CHF -: history of DVT -: gout -: Knee Replacement -: Tubal ligation -: cholecystectomy -: cataracts - Family History Father Family History: Reviewed- Non-Contributory - Social History Smoking Status: Former smoker Alcohol use: No CD- Drugs: No Caffeine use: Yes Review of Systems 10-point ROS is otherwise unremarkable Physical Examination - Vital Signs Temperature: 98 F Blood Pressure: 140/70 Pulse: 80 Respirations: 18 Pulse Ox (%): 96 - Physical Exam General: Alert, In no apparent distress, Oriented x3 HEENT: Atraumatic, PERRLA, Mucous membr. moist/pink, EOMI, Sclerae nonicteric Neck: Supple, 2+ carotid pulse no bruit, No LAD, Without JVD or thyroid abnormality Respiratory: Clear to auscultation bilaterally, Normal air movement Cardiovascular: Regular rate/rhythm, Normal S1 S2, Systolic murmur Gastrointestinal: Normal bowel sounds, Soft and benign, Non-distended, No tenderness Musculoskeletal: No clubbing, No swelling, No tenderness Integumentary: No rashes Neurological: Normal gait, Normal speech, Normal strength at 5/5 x4 extr, Normal tone, Sensation intact, Cranial nerves 3-12 intact, Normal affect Lymphatics: No axilla or inguinal lymphadenopathy - Studies Laboratory Data (last 24 hrs) 02/02/19 05:00: PT 14.9 H, INR 1.27 02/02/19 05:00: WBC 8.6, Hgb 15.2 H, Hct 44.9, Plt Count 351 02/02/19 05:00: Sodium 138, Potassium 2.8 L*, BUN 22 H, Creatinine 1.22, Glucose 120 H, Magnesium 1.7 L D, Total Bilirubin 0.6, AST 11 L, ALT 19, Alkaline Phosphatase 81, Lipase 84 Assessment & Plan - Problems (Diagnosis) (1) Arrhythmia Current Visit: Yes Status: Acute Qualifiers: Arrhythmia type: atrial fibrillation (2) Neurologic cardiac syncope Current Visit: Yes Status: Acute - Plan Plan: 1. Echocardiogram and carotid Doppler 2. MRI of the brain 3. Telemetry monitoring 4. Cardiology consultation 5. Serial troponins and EKG 6. GI and DVT prophylaxis Discharge Plan: Home Plan to discharge in: Greater than 2 days - Advance Directives Does patient have a Living Will: No Does patient have a Durable POA for Healthcare: No - Code Status/Comfort Care Code Status Assessed: Yes Code Status: Full Code Critical Care: No Time Spent Managing PTS Care (In Minutes): 45
[2019-02-02] MEDS ORDERED: ENOXAPARIN 40 MG/0.4 ML SQ SCH (09:00)
[2019-02-02] MEDS ORDERED: NA CHLORIDE 0.9% 1,000 ML IV SCH ×2 (09:00→12:00)
--- NOTE | 2019-02-02 09:02 | RAD REPORT ---
EXAM DESCRIPTION: US - CP - 02/02/2019 8:43 am CLINICAL HISTORY: syncope Headache, drowsiness. COMPARISON: No comparisons TECHNIQUE: Real-time sonographic evaluation of both carotid systems was performed. Doppler interroga tion was performed with waveform tracing bilaterally. FINDINGS: The presence of IV placement on the left side of the neck precluded imaging of the left si de of the neck. The right common carotid artery demonstrates no significant stenosis. Proximal right ICA demonstrates moderate hard plaquing and turbulent flow with stenosis estimated at 50-70% based on NASCET criteria . Antegrade flow is seen in the right vertebral artery. IMPRESSION: 50-70% stenosis proximal right ICA suspected. Bandaging in IV placement in the left neck prevented imaging of the left side.
--- NOTE | 2019-02-02 10:23 | RAD REPORT ---
EXAM DESCRIPTION: CT Head Without Intravenous Contrast CLINICAL HISTORY: The patient is 78 years old and is Female; SYNCOPE TECHNIQUE: Axial computed tomography images of the head/brain without intravenous contrast. Sagitt al and coronal reformatted images were created and reviewed. This CT exam was performed using one o r more of the following dose reduction techniques: automated exposure control, adjustment of the mA and/or kV according to patient size, and/or use of iterative reconstruction technique. COMPARISON: No relevant prior studies available. FINDINGS: Brain: Unremarkable. No hemorrhage. No significant white matter disease. No edema. Ventricles: Unremarkable. No ventriculomegaly. Bones/joints: Unremarkable. No acute fracture. Soft tissues: Unremarkable. Sinuses: Unremarkable as visualized. No acute sinusitis. Mastoid air cells: Unremarkable as visualized. No mastoid effusion. IMPRESSION: No acute intracranial findings. Electronically signed by: Mark Pearson MD 02/02/2019 6:05 AM CDT Due to temporary technical issues with the PACS/Fluency reporting system, reports are being signed by the in house radiologist as a courtesy to ensure prompt reporting. The interpreting radiologist is f ully responsible for the content of the report.
--- NOTE | 2019-02-02 11:31 | P.PN ---
Subjective Date of Service: 02/02/19 Primary Care Provider: Dr. Sol; Cardiology-Dr. Bernal Chief Complaint: Syncopal event Subjective: Improving Physical Examination - Vital Signs Temperature: 98 F Blood Pressure: 140/70 Pulse: 80 Respirations: 18 Pulse Ox (%): 96 - Physical Exam General: Alert, In no apparent distress, Oriented x3, Cooperative HEENT: Atraumatic Neck: Supple Respiratory: Clear to auscultation bilaterally, Normal air movement Cardiovascular: Normal pulses, Regular rate/rhythm Gastrointestinal: Normal bowel sounds, Soft and benign, Non-distended, No masses , No rebound, No guarding Musculoskeletal: No erythema, No tenderness, No warmth Integumentary: No tenderness/swelling, No erythema, No warmth, No cyanosis Neurological: Normal speech, Normal strength at 5/5 x4 extr, Normal tone - Studies Laboratory Data (last 24 hrs) 02/02/19 05:00: PT 14.9 H, INR 1.27 02/02/19 05:00: WBC 8.6, Hgb 15.2 H, Hct 44.9, Plt Count 351 02/02/19 05:00: Sodium 138, Potassium 2.8 L*, BUN 22 H, Creatinine 1.22, Glucose 120 H, Magnesium 1.7 L D, Total Bilirubin 0.6, AST 11 L, ALT 19, Alkaline Phosphatase 81, Lipase 84 Medications List Reviewed: Yes Assessment & Plan Discharge Plan: Home Plan to discharge in: 24 Hours Physician Review Additional Text: Impression: Syncope with noted 50 to 70% right proximal ICA stenosis Chronic diastolic CHF Chronic renal disease, stage III Plan: Syncope with noted 50 to 70% right proximal ICA stenosis: Continue to monitor closely. MRI brain unremarkable. Carotid Doppler shows 50-70% right proximal ICA stenosis. Await echocardiogram. Patient appears slightly dry. Continue with IV fluids. Continue to monitor on telemetry. Monitor cardiac enzymes. Cardiology consulted for further recommendation. Will have physical therapy assess ambulation. Will check orthostatics. Patient may require further cardiac/carotid evaluation. Likely discharge in the next 24 hr. Will reassess this afternoon. Chronic diastolic CHF: Patient appears dry. Will hold Lasix. Will provide IV fluids. Echocardiogram obtained. Will discuss with cardiology. Chronic renal disease, stage III: Continue as above. Will hold Lasix. Continue with IV fluids. Continue to monitor and assess. Time Spent Managing Pts Care (In Minutes): 55
--- NOTE | 2019-02-02 13:19 | ECHO ---
HEIGHT: 4 ft 3 in WEIGHT: 225 lb 0 oz DATE OF STUDY: 02/02/[address]: Philip Aguillon MD 2-DIMENSIONAL: YES M.MODE: YES DOPPLER: YES COLOR FLOW: YES TDS: NO PORTABLE: YES DEFINITY: NO BUBBLE STUDY: NO DIAGNOSIS: SYNCOPE CARDIAC HISTORY: CATHERIZATION: NO SURGERY: NO PROSTHETIC VALVE: NO PACEMAKER: NO MEASUREMENTS (cm) DIASTOLIC (NORMALS) SYSTOLIC (NORMALS) IVSd 0.8 (0.6-1.2) LA Diam 2.8 (1.9-4.0) LVEF 60% LVIDd 4.2 (3.5-5.7) LVIDs 2.9 (2.0-3.5) %FS 31% LVPWd 0.9 (0.6-1.2) Ao Diam 2.6 (2.0-3.7) 2 DIMENSIONAL ASSESSMENT: RIGHT ATRIUM: NORMAL LEFT ATRIUM: NORMAL RIGHT VENTRICLE: NORMAL LEFT VENTRICLE: NORMAL TRICUSPID VALVE: NORMAL MITRAL VALVE: NORMAL PULMONIC VALVE: NORMAL AORTIC VALVE: NORMAL PERICARDIAL EFFUSION: NONE AORTIC ROOT: NORMAL LEFT VENTRICULAR WALL MOTION: NORMAL. DOPPLER/COLOR FLOW: MILD TRICUSPID REGURGITATION. MILD PULMONARY HYPERTENSION. ESTIMATED RIGHT VENTRICULAR SYSTOLIC PRESSURE 40mmHG. COMMENTS: NORMAL 2D ECHO. MILD TRICUSPID REGURGITATION. MILD PULMONARY HYPERTENSION. TECHNOLOGIST: ELIZABETH TERRAZAS
[2019-02-02 16:47] LABS: Urine Appearance CLEAR; Urine Bilirubin NEGATIVE (NEG); Urine Blood TRACE (NEG); Urine Color YELLOW; Urine Glucose NEGATIVE (NEG); Urine Protein NEGATIVE (NEG); Urine Urobilinogen 0.2 mg/dL (0.2-1.0)
[2019-02-02 16:56] LABS: Urine Microscopic Reflex ORDER UMIC
[2019-02-02 17:09] LABS: Urine Bacteria <20 /HPF (<20); Urine Culture Reflex Order REFLEXED; Urine RBC <5 /HPF (NONE SEEN)
--- NOTE | 2019-02-02 17:36 | CON ---
History Of Present Illness: Mrs. Harrell is a 78-year-old. She was playing [employer] about 3:30 in e morning, suddenly felt hot, sweaty, nauseated, did not throw up, became syncopal, fell off a chair, no injuries and was brought to the hospital. Since being here, she has had an echocardiogram that l ooks normal. EKGs that are unremarkable. She has been in sinus rhythm. Troponin is normal. She menezes s had an MRI of the brain, head CAT scan, and carotid artery ultrasounds that all show no significant problems that would be likely to cause any syncope. The patient reports she has had many of these s pells, perhaps as much as 10, all in the last 6 years. They are the same in every way, except she menezes s not passed out until this one. Her carotid Doppler was only done on the right because there was an internal jugular vein catheter in place that prevented an evaluation, so we are going to evaluate e carotids, we need to do it properly and have the IV moved, redo the carotid. The patient does not have a history of stroke, myocardial infarction. She has had hypertension, but was taken off her blo od pressure medicines about 2 months ago. Apparently is not taking any medicines for blood pressure, diabetes or dyslipidemia presently. Allergies: SHE HAS NO ALLERGIES. Social History: She uses no tobacco. Alcohol use minimal. She thinks she had one 12-ounce can of b eer yesterday total. Medications: Apparently, she has had home medicines of Eliquis 5 mg twice per day and Zantac. Past Medical History: There is a history of DVT, gout, and hypertension. Physical Examination: Vital Signs: She is 5 feet 1 inch, 225 pounds. General: Obese, alert, oriented, pleasant, not in distress. Neck: No carotid bruit. Lungs: Clear. Heart: Within normal limits. Abdomen: Soft. Extremities: Palpable pulses. No edema. Impression: The patient seems to have vasovagal spells causing syncope. I think her carotid needs t o be done properly with both sides evaluated, make sure she does not have subclavian steal syndrome o r significant stenosis, and then she needs to wear a monitor for a month and see if she has significa nt arrhythmia. GREY/ISMA Voice ID: [id number] Report ID: [id number]
[2019-02-02] MEDS ORDERED: POTASSIUM CL SA 10 MEQ TAB PO ONE (21:00)
[2019-02-02] MEDS ORDERED: ATORVASTATIN 40 MG TAB PO SCH (21:00)
[2019-02-02] MEDS: APIXABAN 5 MG TABLET PO SCH (21:22)
[2019-02-03 04:23] LABS: Absolute Lymphocytes (CBC) 2.3 K/uL (0.7-4.9); Basophils % 0.7 % (0-1.3); Eosinophils % 2.8 % (0-4.4); Hematocrit 35.3 % (36.0-45.0); Lymphocytes % 33.1 % (15.3-44.8); MPV 8.4 fL (7.6-11.3)
[2019-02-03 04:53] LABS: Albumin 3.1 g/dL (3.4-5.0); Bilirubin Total 0.6 mg/dL (0.2-1.0); Magnesium 2.3 mg/dL (1.8-2.4); Phosphorus 2.6 mg/dL (2.5-4.9); Potassium 3.3 mmol/L (3.5-5.1); Protein, Total 6.3 g/dL (6.4-8.2)
[2019-02-03] MEDS ORDERED: POTASSIUM CL SA 10 MEQ TAB PO ONE (07:00)
--- NOTE | 2019-02-03 08:59 | P.DS ---
Admission Date: 02/02/19 Discharge Date: 02/03/19 Primary Care Provider: Dr. Sol; Cardiology-Dr. Bernal Disposition: ROUTINE DISCHARGE Discharge Condition: GOOD Reason for Admission: Syncopal event Consultations: Cardiology-Dr. Bernal Procedures: MRI Head: FINDINGS: No intracranial hemorrhage, hydrocephalus or extra-axial fluid collections.Mild chronic microvascular ischemic changes are seen in the periventricular and deep white matter. No edema or shift of midline structures. No findings to suspect brain mass. DWI is negative for acute CVA. Midline structures are normally formed. Mastoid air cells and paranasal sinuses are clear. IMPRESSION: No acute intracranial process is identified. Carotid doppler: FINDINGS: The presence of IV placement on the left side of the neck precluded imaging of the left side of the neck. The right common carotid artery demonstrates no significant stenosis. Proximal right ICA demonstrates moderate hard plaquing and turbulent flow with stenosis estimated at 50-70% based on NASCET criteria. Antegrade flow is seen in the right vertebral artery. IMPRESSION: 50-70% stenosis proximal right ICA suspected. Sonography of the left carotid system shows no evidence of significant plaquing or stenosis. Left ICA to CCA ratio is normal measuring 1.4. Antegrade flow is seen in left vertebral artery. ECHO: Ejection fraction 60% LEFT VENTRICULAR WALL MOTION: NORMAL. DOPPLER/COLOR FLOW: MILD TRICUSPID REGURGITATION. MILD PULMONARY HYPERTENSION. ESTIMATED RIGHT VENTRICULAR SYSTOLIC PRESSURE 40mmHG. COMMENTS: NORMAL 2D ECHO. MILD TRICUSPID REGURGITATION. MILD PULMONARY HYPERTENSION. 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 She was playing dominoes. She felt nauseated prior to the episode. No injuries were identified. Patient evaluated in the emergency room and admitted for observation. Hospital Course: Patient presented with syncopal episode. Patient was admitted for further evaluation. Patient seen and evaluated by Cardiology. Cardiology suspected vasovagal etiology. Carotid ultrasound showed 50-70% right proximal ICA stenosis. Left side appeared normal. MRI brain showed no acute findings. Echocardiogram shows ejection fraction of 60% with mild pulmonary hypertension noted. Patient had mild renal insufficiency likely from dehydration. Patient was given IV fluids. Medication adjusted. Patient also with hypokalemia. Electrolytes were replaced. Her diuretic therapy was adjusted. Patient with underlying chronic diastolic CHF and chronic renal disease. Patient did well in her stay. No further syncope noted. No cardiac changes noted. At discharge cardiology recommends for the patient to follow up in 1-2 weeks to follow up this hospitalization. Patient will need Holter monitor as an outpatient to further evaluate for possible underlying arrhythmia. She is to keep a record of her blood pressures. If greater than 140/90 she is to contact her PCP for further recommendation. Patient previously on blood pressure medication but this was discontinued due to low blood pressure in the past. For her diastolic CHF, Lasix has been decreased to 20 mg 1 pill twice daily. Patient will continue with potassium supplementation daily. Recommend to recheck lab-BMP in 1 week to monitor her progress. Recommend to continue with a 1500 cc per day fluid restriction and low-salt diet. Recommend to monitor weight daily. If her weight increases by more than 5 lb she is to contact her PCP for further adjustment in medication. Due to her carotid stenosis, patient will go home on Lipitor 40 mg daily and folic acid 1 mg daily. Recommend to follow up with cardiology to further monitor and address. Patient with chronic renal disease, stage III. Patient had mild renal sufficiency likely from dehydration. Electrolytes replaced and patient given IV fluids. Diuretic therapy adjusted. Recommend to recheck lab-BMP in 1 week. Recommend follow up with nephrology in 1-2 weeks to follow up her care and further monitor. Recommend no further use of nonsteroidal anti-inflammatories. Future medications will need to be renally dosed. Patient with history of left lower extremity DVT. Patient on chronic anti coagulation therapy. Patient will continue with Eliquis 5 mg 1 pill twice daily. Recommend to follow up with her PCP to further address. PCP will need to consider discontinuing Eliquis as the patient has been treated for over 6 months. Will need to consider hematology evaluation as an outpatient to further evaluate. Patient with underlying GERD. At discharge she may continue with Zantac 150 mg 1 pill twice daily. Vital Signs/Physical Exam: Temp Pulse Resp BP Pulse Ox 97.0 F 64 15 133/63 100 02/03/19 08:00 02/03/19 08:00 02/03/19 08:00 02/03/19 08:00 02/03/19 08:00 General: Alert, In no apparent distress, Oriented x3, Cooperative HEENT: Atraumatic Neck: Supple Respiratory: Clear to auscultation bilaterally, Normal air movement Cardiovascular: Normal pulses, Regular rate/rhythm Gastrointestinal: Normal bowel sounds, Soft and benign, Non-distended, No tenderness, No masses, No rebound, No guarding Musculoskeletal: No erythema, No tenderness, No warmth Integumentary: No tenderness/swelling, No erythema, No warmth, No cyanosis Neurological: Normal speech, Normal strength at 5/5 x4 extr, Normal tone, Normal affect Laboratory Data at Discharge: WBC 7.0 K/uL (4.3-10.9) D 02/03/19 03:32 Hgb 12.2 g/dL (12.0-15.0) D 02/03/19 03:32 Hct 35.3 % (36.0-45.0) L D 02/03/19 03:32 Plt Count 301 K/uL (152-406) 02/03/19 03:32 PT 14.9 SECONDS (9.5-12.5) H 02/02/19 05:00 INR 1.27 02/02/19 05:00 Sodium 139 mmol/L (136-145) 02/03/19 03:32 Potassium 3.3 mmol/L (3.5-5.1) L 02/03/19 03:32 BUN 22 mg/dL (7-18) H 02/03/19 03:32 Creatinine 0.92 mg/dL (0.55-1.3) 02/03/19 03:32 Glucose 105 mg/dL (74-106) 02/03/19 03:32 Phosphorus 2.6 mg/dL (2.5-4.9) 02/03/19 03:32 Magnesium 2.3 mg/dL (1.8-2.4) D 02/03/19 03:32 Total Bilirubin 0.6 mg/dL (0.2-1.0) 02/03/19 03:32 AST 18 U/L (15-37) 02/03/19 03:32 ALT 18 U/L (12-78) 02/03/19 03:32 Alkaline Phosphatase 57 U/L (45-117) 02/03/19 03:32 Troponin I < 0.02 ng/mL (0.0-0.045) 02/02/19 20:45 Lipase 84 U/L (73-393) 02/02/19 05:00 Home Medications: Apixaban [Eliquis *] 5 mg PO BID 11/29/18 Ranitidine [Zantac*] 150 mg PO BID 11/29/18 Atorvastatin Calcium [Lipitor] 40 mg PO BEDTIME #30 tab 02/03/19 Folic Acid 1 mg PO DAILY #90 tablet 02/03/19 Furosemide [Lasix] 20 mg PO BIDL #60 tab 02/03/19 Potassium Chloride [Klor-Con 10] 10 meq PO DAILY #30 tablet.er 02/03/19 New Medications: Atorvastatin Calcium [Lipitor] 40 mg PO BEDTIME #30 tab Folic Acid 1 mg PO DAILY #90 tablet Furosemide [Lasix] 20 mg PO BIDL #60 tab Potassium Chloride [Klor-Con 10] 10 meq PO DAILY #30 tablet.er Patient Discharge Instructions: 1. Recommend a follow up with a PCP in 1 week to follow up this hospitalization. 2. Patient presented with syncopal episode. Patient was admitted for further evaluation. Patient seen and evaluated by Cardiology. Cardiology suspected vasovagal etiology. Carotid ultrasound showed 50-70% right proximal ICA stenosis. Left side appeared normal. MRI brain showed no acute findings. Echocardiogram shows ejection fraction of 60% with mild pulmonary hypertension noted. Patient had mild renal insufficiency likely from dehydration. Patient was given IV fluids. Medication adjusted. Patient also with hypokalemia. Electrolytes were replaced. Her diuretic therapy was adjusted. Patient with underlying chronic diastolic CHF and chronic renal disease. Patient did well in her stay. No further syncope noted. No cardiac changes noted. At discharge cardiology recommends for the patient to follow up in 1-2 weeks to follow up this hospitalization. Patient will need Holter monitor as an outpatient to further evaluate for possible underlying arrhythmia. 3. For her diastolic CHF, Lasix has been decreased to 20 mg 1 pill twice daily. Patient will continue with potassium supplementation daily. Recommend to recheck lab-BMP in 1 week to monitor her progress. Recommend to continue with a 1500 cc per day fluid restriction and low-salt diet. Recommend to monitor weight daily. If her weight increases by more than 5 lb she is to contact her PCP for further adjustment in medication. Recommend to monitor blood pressure daily. She is to keep a record of her blood pressures. If greater than 140/90 she is to contact her PCP for further recommendation. 4. Due to her carotid stenosis, patient will go home on Lipitor 40 mg daily and folic acid 1 mg daily. Recommend to follow up with cardiology to further monitor and address. 5. Patient with chronic renal disease, stage III. Patient had mild renal sufficiency likely from dehydration. Electrolytes replaced and patient given IV fluids. Diuretic therapy adjusted. Recommend to recheck lab-BMP in 1 week. Recommend follow up with nephrology in 1-2 weeks to follow up her care and further monitor. Recommend no further use of nonsteroidal anti-inflammatories. Future medications will need to be renally dosed. 6. Patient with history of left lower extremity DVT. Patient on chronic anti coagulation therapy. Patient will continue with Eliquis 5 mg 1 pill twice daily. Recommend to follow up with her PCP to further address. PCP will need to consider discontinuing Eliquis as the patient has been treated for over 6 months. Will need to consider hematology evaluation as an outpatient to further evaluate. 7. Patient with underlying GERD. At discharge she may continue with Zantac 150 mg 1 pill twice daily. Diet: AHA Activity: Fall precautions Time spent managing pt's care (in minutes): 55
[2019-02-03] MEDS ORDERED: FOLIC ACID 1 MG TABLET PO SCH (09:00)
[2019-02-03] MEDS: APIXABAN 5 MG TABLET PO SCH (09:09)
--- NOTE | 2019-02-04 00:04 | PN ---
Date of Progress Note: 02/03/2019 Ms. Harrell is coming with syncope, most likely vasovagal syncope. Workup included echocardiogram whi ch showed mild pulmonary hypertension with normal ejection fraction. A carotid Doppler showed a 50% to 70% stenosis in the right internal carotid artery. We still do not think that this is related to her syncope. I feel comfortable with her going home. I think she needs to have an outpatient event monitor and outpatient stress test. She needs to have a carotid Doppler once a year to rule out wors ening stenosis in her right carotid. We will see her in the office in the next couple of weeks. DESTINY/ISMA Voice ID: [id number] Report ID: [id number]
== END 2019-02-03 11:56 | disposition home or self-care (01) ==
LOC: ER 04:10 → ERHOLD 08:05 → 4TH 09:48
PROVIDERS: ADMIT Hospitalist; ATTEND Hospitalist
DX: R55 Syncope and collapse (principal); I27.20 Pulmonary hypertension, unspecified; I13.0 Hypertensive heart and chronic kidney disease with heart failure and stage 1 through stage 4 chronic kidney disease, or unspecified chronic kidney disease; N18.3 Chronic kidney disease, stage 3 (moderate); I50.32 Chronic diastolic (congestive) heart failure; N17.9 Acute kidney failure, unspecified; K21.9 Gastro-esophageal reflux disease without esophagitis; E87.6 Hypokalemia; I65.21 Occlusion and stenosis of right carotid artery; Z96.659 Presence of unspecified artificial knee joint; Z86.718 Personal history of other venous thrombosis and embolism; Z79.01 Long term (current) use of anticoagulants
CPT/HCPCS: 93005; 93306; 87088; 85025 ×2; 87086; 80048; 36415; 80320; 83735 ×2; 84100; 84132; 85610; 80061; 85379; 80076; 84484 ×3; 83690; 80053; 83880; 70450; 71045; 93880; 70551; 97163; 99285; J3411; J3475; G0378 ×2; 81003; 81015

== ENCOUNTER 2019-09-11 22:23 | Observation (INO) | payer OTHER ==
[2019-09-11] MEDS ORDERED: ENOXAPARIN 100 MG/ML SYR SQ ONE (23:27)
[2019-09-11 23:44] LABS: Absolute Lymphocytes (CBC) 1.7 K/uL (0.7-4.9); Hematocrit 38.3 % (36.0-45.0); Lymphocytes % 24.2 % (15.3-44.8); MPV 8.4 fL (7.6-11.3); RBC Red Blood Cell Count 4.19 M/uL (3.86-4.86)
[2019-09-11 23:54] LABS: Protime INR 1.02
[2019-09-12 00:02] LABS: ALT/SGPT 18 U/L (12-78); AST/SGOT 13 U/L (15-37); Albumin 3.3 g/dL (3.4-5.0); Alkaline Phosphatase 69 U/L (45-117); BUN Blood Urea Nitrogen 13 mg/dL (7-18); Bicarbonate 25 mmol/L (21-32); Bilirubin Direct 0.3 mg/dL (0-0.2); Bilirubin Total 0.7 mg/dL (0.2-1.0); Glucose Level 91 mg/dL (74-106); Magnesium 2.2 mg/dL (1.8-2.4); NT PRO-BNP 994 pg/mL (<450); Protein, Total 6.6 g/dL (6.4-8.2); Sodium Level 141 mmol/L (136-145); Troponin (Emerg Dept Use Only) < 0.02 ng/mL (0.0-0.045)
--- NOTE | 2019-09-12 02:27 | EDPHYS ---
Physician Documentation [facility] Name: Rekha Harrell Age: 78 yrs Sex: Female : 1940 Arrival Date: 09/11/2019 Time: 22:29 Bed 14 Private MD: ED Physician Anthony Cox HPI: 09/11 22:51 This 78 yrs old Female presents to ER via EMS with complaints of Left Ankle pm1 Pain and Left Calf Pain. 22:51 The patient presents with pain, that is acute. The complaints affect the left calf, pm1 left Achilles and left ankle. Context: The problem was sustained at home, resulted from an unknown cause, the patient is able to ambulate. Onset: The symptoms/episode began/occurred just prior to arrival. Modifying factors: The symptoms are alleviated by nothing. the symptoms are aggravated by movement. Associated signs and symptoms: Pertinent positives: calf tenderness, Pertinent negatives numbness, swelling, tingling. Treatment prior to arrival includes: no previous treatment. The patient has experienced a previous episode, DVT about 1 year ago to the same leg. 23:24 Associated signs and symptoms: Pertinent positives: Shortness of breath with exertion pm1 for the past two days. Historical: - Allergies: 22:33 Allopurinol; jb4 - Home Meds: 22:33 Lasix 40 mg Oral tab 2 tabs 2 times per day [Active]; ranitidine HCl 150 mg Oral tab 1 jb4 tab 2 times per day [Active]; - PMHx: 22:33 CHF; DVT; Gout; Hypertension; blood clots; jb4 - PSHx: 22:33 left knee replacement; jb4 - Immunization history:: Adult Immunizations up to date. - Coronavirus screen:: The patient has NOT traveled to [place], [place], or [place] in the past 14 days. Proceed with normal triage process as indicated. The patient has NOT had contact with known/suspected case of Coronavirus? Proceed with normal triage procedures. - Social history:: Smoking status: Patient denies any tobacco usage or history of. Patient uses alcohol, weekly. Patient/guardian denies using street drugs. - Ebola Screening: : No symptoms or risks identified at this time. ROS: 22:51 Skin: Negative for injury, rash, and discoloration, Neuro: Negative for headache, pm1 weakness, numbness, tingling, and seizure. 22:51 Constitutional: Negative for fever, chills, and weight loss, Cardiovascular: Negative for chest pain, palpitations, and edema, Respiratory: Negative for cough, wheezing, and pleuritic chest pain, Abdomen/GI: Negative for abdominal pain, nausea, vomiting, diarrhea, and constipation, Back: Negative for injury and pain. 22:51 MS/extremity: Positive for pain, of the left calf, left Achilles and left ankle, Negative for decreased range of motion, deformity. 23:24 Respiratory: Positive for shortness of breath, on exertion. pm1 Exam: 22:51 Constitutional: This is a well developed, well nourished patient who is awake, alert, pm1 and in no acute distress. Head/Face: Normocephalic, atraumatic. Chest/axilla: Normal chest wall appearance and motion. Nontender with no deformity. No lesions are appreciated. Cardiovascular: Regular rate and rhythm with a normal S1 and S2. No gallops, murmurs, or rubs. Normal PMI, no JVD. No pulse deficits. Respiratory: Lungs have equal breath sounds bilaterally, clear to auscultation and percussion. No rales, rhonchi or wheezes noted. No increased work of breathing, no retractions or nasal flaring. Abdomen/GI: Soft, non-tender, with normal bowel sounds. No distension or tympany. No guarding or rebound. No evidence of tenderness throughout. Back: No spinal tenderness. No costovertebral tenderness. Full range of motion. Skin: Warm, dry with normal turgor. Normal color with no rashes, no lesions, and no evidence of cellulitis. 22:51 Musculoskeletal/extremity: Extremities: grossly normal except: noted in the left lateral ankle, left Achilles, left medial ankle and anterior aspect of left ankle: swelling, tenderness, ROM: intact in all extremities, Circulation is intact in all extremities. 22:51 Neuro: Orientation: is normal, Motor: is normal, moves all fours. Vital Signs: 22:33 BP 143 / 62; Pulse 79; Resp 16; Temp 97.5(O); Pulse Ox 99% on R/A; Weight 102.06 kg mw2 (R); Height 5 ft. 1 in. (154.94 cm) (R); Pain 0/10; 23:00 BP 143 / 62; Pulse 76; Resp 16; Pulse Ox 100% on R/A; jb4 09/12 00:45 BP 116 / 81; Pulse 79; Resp 16; Pulse Ox 98% on R/A; jb4 02:30 BP 144 / 64; Pulse 83; Resp 16; Pulse Ox 100% on R/A; jb4 03:30 BP 111 / 54; Pulse 70; Resp 16; Temp 98.0(O); Pulse Ox 100% on R/A; jb4 09/11 22:33 Body Mass Index 42.51 (102.06 kg, 154.94 cm) mw2 MDM: 09/11 22:46 Patient medically screened. pm1 22:57 Data reviewed: vital signs. Data interpreted: Pulse oximetry: on room air is 99 %. pm1 Interpretation: normal. 22:57 ED course: Patient denies any current pain now. Refused pain medications. pm1 09/12 02:07 Counseling: I had a detailed discussion with the patient and/or guardian regarding: the pm1 historical points, exam findings, and any diagnostic results supporting the discharge/admit diagnosis, lab results, radiology results, the need for further work-up and treatment in the hospital. 02:07 ED course: Infiltration of line during CT scan. Patient difficult IV stick. Plan to get pm1 another IV line and VQ scan during hospitalization. 02:53 Physician consultation: Philip Aguillon MD was called at 02:53, was contacted at 02:53, pm1 regarding admission, patient's condition, and will see patient. 09/11 23:19 Order name: Basic Metabolic Panel; Complete Time: 00:20 pm1 09/11 23:19 Order name: CBC with Diff; Complete Time: 00:00 pm1 09/11 23:19 Order name: LFT's; Complete Time: 00:20 pm1 09/11 23:19 Order name: Magnesium; Complete Time: 00:20 pm1 09/11 23:19 Order name: NT PRO-BNP; Complete Time: 00:20 pm1 09/11 23:19 Order name: PT-INR; Complete Time: 00:00 pm1 09/11 22:47 Order name: Ankle Left 3 View XRAY pm1 09/11 22:47 Order name: Extremity Venous Uni Ltd US pm1 09/11 23:19 Order name: Troponin (emerg Dept Use Only); Complete Time: 00:20 pm1 09/11 23:19 Order name: EKG; Complete Time: 23:19 pm1 09/11 23:19 Order name: Cardiac monitoring; Complete Time: 23:56 pm1 09/11 23:19 Order name: EKG - Nurse/Tech; Complete Time: 23:56 pm1 09/11 23:19 Order name: IV Saline Lock; Complete Time: 01:11 pm1 09/11 23:19 Order name: Labs collected and sent; Complete Time: 23:55 pm1 09/11 23:19 Order name: O2 Per Protocol; Complete Time: 23:55 pm1 09/11 23:19 Order name: O2 Sat Monitoring; Complete Time: 23:55 pm1 Administered Medications: 09/11 23:55 Drug: Lovenox 1 mg/kg Route: Sub-Q; Site: right lower abdomen; jb4 09/12 00:55 Follow up: Response: No adverse reaction jb4 Disposition: 04:37 Co-signature as Attending Physician, Anthony Cox MD. fausto Disposition: 09/12/19 02:26 Hospitalization ordered by Philip Aguillon for Observation. Preliminary diagnosis is Acute embolism and thrombosis of deep veins of lower extremity. - Bed requested for Telemetry/MedSurg (observation). - Status is Observation. bb - Condition is Stable. - Problem is new. - Symptoms have improved. UTI on Admission? No Signatures: Dispatcher [employer] [facility] Shaylee Brand RN RN mw Lam, Pin, MD MD pkLeydi Granger RN RN bb Marinas, Patrick, BARYTES GRINDER BARYTES GRINDER pm1 Joe Gomes RN RN jb4 Corrections: (The following items were deleted from the chart) 09/11 23:26 22:51 Constitutional: Negative for fever, chills, and weight loss, Cardiovascular: pm1 Negative for chest pain, palpitations, and edema, Respiratory: Negative for shortness of breath, cough, wheezing, and pleuritic chest pain, Abdomen/GI: Negative for abdominal pain, nausea, vomiting, diarrhea, and constipation, Back: Negative for injury and pain, pm1 09/12 03:21 02 23:19 Chest For PE Angio+CT.RAD.BRZ ordered. [facility] 09/12 04:14 02:26 Hospitalization Ordered by Philip Aguillon MD for Observation. Preliminary mw diagnosis is Acute embolism and thrombosis of deep veins of lower extremity. Bed requested for Telemetry/MedSurg (observation). Status is Observation. Condition is Stable. Problem is new. Symptoms have improved. UTI on Admission? No. pm1 04:36 04:14 09/12/2019 02:26 Hospitalization Ordered by Philip Aguillon MD for Observation. bb Preliminary diagnosis is Acute embolism and thrombosis of deep veins of lower extremity. Bed requested for Telemetry/MedSurg (observation). Status is Observation. Condition is Stable. Problem is new. Symptoms have improved. UTI on Admission? No. mw
--- NOTE | 2019-09-12 02:27 | ER ---
Nurse's Notes [facility] Name: Rekha Harrell Age: 78 yrs Sex: Female : 1940 Arrival Date: 09/11/2019 Time: 22:29 Bed 14 Private MD: Diagnosis: Acute embolism and thrombosis of deep veins of lower extremity Presentation: 09/11 22:29 Presenting complaint: EMS states: Pt was laying in bed when she suddenly had a burning jb4 pain in her left ankle. The pain had subsided after our arrival on scene. Pt reports never having a pain like that before and is worried it may be a blood clot. Reports having a history of knee replacement on the left knee and blood clots in that left leg. Transition of care: patient was not received from another setting of care. Onset of symptoms was September 11, 2019. Risk Assessment: Do you want to hurt yourself or someone else? Patient reports no desire to harm self or others. Initial Sepsis Screen: Does the patient meet any 2 criteria? No. Patient's initial sepsis screen is negative. Does the patient have a suspected source of infection? No. Patient's initial sepsis screen is negative. Care prior to arrival: None. 22:29 Method Of Arrival: EMS: [facility] jb4 22:29 Acuity: RICCARDO 3 jb4 Historical: - Allergies: 22:33 Allopurinol; jb4 - Home Meds: 22:33 Lasix 40 mg Oral tab 2 tabs 2 times per day [Active]; ranitidine HCl 150 mg Oral tab 1 jb4 tab 2 times per day [Active]; - PMHx: 22:33 CHF; DVT; Gout; Hypertension; blood clots; jb4 - PSHx: 22:33 left knee replacement; jb4 - Immunization history:: Adult Immunizations up to date. - Coronavirus screen:: The patient has NOT traveled to [place], [place], or [place] in the past 14 days. Proceed with normal triage process as indicated. The patient has NOT had contact with known/suspected case of Coronavirus? Proceed with normal triage procedures. - Social history:: Smoking status: Patient denies any tobacco usage or history of. Patient uses alcohol, weekly. Patient/guardian denies using street drugs. - Ebola Screening: : No symptoms or risks identified at this time. Screenin:33 Abuse screen: Denies threats or abuse. Nutritional screening: No deficits noted. jb4 Tuberculosis screening: No symptoms or risk factors identified. Fall Risk None identified. Assessment: 22:33 General: Appears in no apparent distress. comfortable, Behavior is calm, cooperative, jb4 appropriate for age. Pain: Denies pain. Neuro: Level of Consciousness is awake, alert, obeys commands, Oriented to person, place, time, situation. Cardiovascular: Patient's skin is warm and dry. Respiratory: Airway is patent Respiratory effort is even, unlabored, Respiratory pattern is regular, symmetrical. GI: No signs and/or symptoms were reported involving the gastrointestinal system. : No signs and/or symptoms were reported regarding the genitourinary system. EENT: No signs and/or symptoms were reported regarding the EENT system. Derm: Skin is intact, Skin is pink, warm \T\ dry. Musculoskeletal: Circulation, motion, and sensation intact. Range of motion: intact in all extremities, Swelling present in CECELIA lower extremeties. 23:10 Reassessment: Patient appears in no apparent distress at this time. Patient and/or jb4 family updated on plan of care and expected duration. Pain level reassessed. Patient is alert, oriented x 3, equal unlabored respirations, skin warm/dry/pink. 09/12 00:00 Reassessment: Patient appears in no apparent distress at this time. Patient and/or jb4 family updated on plan of care and expected duration. Pain level reassessed. Patient is alert, oriented x 3, equal unlabored respirations, skin warm/dry/pink. 00:45 Reassessment: Patient appears in no apparent distress at this time. Patient and/or jb4 family updated on plan of care and expected duration. Pain level reassessed. Patient is alert, oriented x 3, equal unlabored respirations, skin warm/dry/pink. Charge Nurse at the bedside attempting ultrasound IV. 01:50 Reassessment: Patient appears in no apparent distress at this time. Patient and/or jb4 family updated on plan of care and expected duration. Pain level reassessed. Patient is alert, oriented x 3, equal unlabored respirations, skin warm/dry/pink. Called to CT to check IV. IV is patent, pt denies pain when flushing, no infiltration noted at the site. 03:30 Reassessment: Patient appears in no apparent distress at this time. Patient and/or jb4 family updated on plan of care and expected duration. Pain level reassessed. Patient is alert, oriented x 3, equal unlabored respirations, skin warm/dry/pink. The pt's son (TERESO) wants to be notified when pt is admitted and left his number [phone]. 04:23 Reassessment: pt appears to be sleeping, eyes closed, resp unlabored, pt admitted to bb room 424 report called to Salvador PALACIOS. Vital Signs: 09/11 22:33 BP 143 / 62; Pulse 79; Resp 16; Temp 97.5(O); Pulse Ox 99% on R/A; Weight 102.06 kg mw2 (R); Height 5 ft. 1 in. (154.94 cm) (R); Pain 0/10; 23:00 BP 143 / 62; Pulse 76; Resp 16; Pulse Ox 100% on R/A; jb4 03 00:45 BP 116 / 81; Pulse 79; Resp 16; Pulse Ox 98% on R/A; jb4 02:30 BP 144 / 64; Pulse 83; Resp 16; Pulse Ox 100% on R/A; jb4 03:30 BP 111 / 54; Pulse 70; Resp 16; Temp 98.0(O); Pulse Ox 100% on R/A; jb4 09/11 22:33 Body Mass Index 42.51 (102.06 kg, 154.94 cm) mw2 ED Course: 09/11 22:29 Patient arrived in ED. jb4 22:32 Triage completed. jb4 22:33 Arm band placed on right wrist. jb4 22:33 Patient has correct armband on for positive identification. Bed in low position. Call jb4 light in reach. Side rails up X 1. Pulse ox on. NIBP on. 22:46 Baljinder Dickey NP is PHCP. pm1 22:46 Anthony Cox MD is Attending Physician. pm1 23:03 Joe Gomes, PHILIP is Primary Nurse. jb4 23:03 X-ray completed. Portable x-ray completed in exam room. Patient tolerated procedure mh1 well. 23:05 Ankle Left 3 View XRAY In Process Unspecified. EDMS 23:15 Extremity Venous Uni Ltd US In Process Unspecified. EDMS 23:15 Ultrasound completed. Patient tolerated well. Notified HUSBANDRY PERSON/ZABRINA ndiaye , sending to vr sg3 per request. 23:44 Missed attempt(s): 22 gauge in left wrist. mt 23:46 Missed attempt(s): 22 gauge in right forearm. jb4 23:49 Radiology exam delayed due to lab results not completed at this time. (BUN/Creatinine). kw1 09/12 02:25 Inserted saline lock: 22 gauge in left forearm, using aseptic technique. By PHILIP Moulton. jb4 02:26 Philip Aguillon MD is Hospitalizing Provider. pm1 03:47 No provider procedures requiring assistance completed. bb 03:50 Note: Unable to complete CT PE exam at 0150 due to infiltration. . kw1 03:51 Note: Patient received approximately 45 ml of IV contrast with infiltrated in the upper kw1 left thorax IV site.. 04:24 Patient admitted, IV remains in place. bb Administered Medications: 09/11 23:55 Drug: Lovenox 1 mg/kg Route: Sub-Q; Site: right lower abdomen; jb4 09/12 00:55 Follow up: Response: No adverse reaction jb4 Outcome: 02:26 Decision to Hospitalize by Provider. pm1 03:47 Instructed on the need for admit. bb 04:24 Admitted to Tele accompanied by [facility], via stretcher, room 424, with chart, Report bb called to Salvador PALACIOS for room 424 04:24 Condition: stable 04:36 Patient left the ED. bb Signatures: Dispatcher [employer] EDMS Shaylee Xavier 1 Leydi Alexis RN RN bb Baljinder Dickey, CECIL HUSBANDRY PERSON pm1 Joe Gomes RN RN [email or web address] Elsa Looney ma Fior Hardwick kw1 Aida Miller sg3 Shakira Ruiz mw2 Corrections: (The following items were deleted from the chart) 09/11 23:53 22:33 BP 143 / 62; Pulse 79bpm; Resp 16bpm; Pulse Ox 99% RA; Temp 97.5F Oral; 102.06 kg mw2 Reported; Height 5 ft. 1 in. Reported; BMI: 42.5; Pain 0/10; jb4 09/12 03:48 03:30 BP 111 / 54; Pulse 70bpm; Resp 16bpm; Pulse Ox 100% RA; jb4 jb4
[2019-09-12] MEDS ORDERED: MORPHINE 4 MG/ML SYR IV PRN (04:02)
[2019-09-12] MEDS ORDERED: ONDANSETRON 4 MG/2 ML VIAL IV PRN (04:02)
[2019-09-12] MEDS ORDERED: ACETAMINOPHEN 500 MG TAB PO PRN (04:02)
[2019-09-12] MEDS ORDERED: NA CHLORIDE 0.9% 1,000 ML IV SCH (05:00)
[2019-09-12 06:38] VITALS: BMI 43.6
--- NOTE | 2019-09-12 08:09 | RAD REPORT ---
EXAM DESCRIPTION: RAD - Ankle Left 3 View - 09/11/2019 11:05 pm CLINICAL HISTORY: Nontraumatic left ankle and leg pain COMPARISON: None. FINDINGS: No fracture, dislocation or periosteal reaction. No joint effusion seen. No joint space na rrowing. Small Achilles spur is present. Moderate-sized plantar spur is present. Soft tissue edema is evident with the baseline for the patient unknown. No air or foreign body in the soft tissues. IMPRESSION: No acute left ankle bone or joint finding. Moderate size plantar spur. Edematous appearance to the soft tissues with the baseline unknown. No air or foreign body in the sof t tissues.
--- NOTE | 2019-09-12 08:24 | EKG ---
Test Date: 2019-09-11 Test Time: 23:24:31 Cuff Setter Overlock: KATHRIN MEASUREMENT RESULTS: Intervals: Rate: 76 AL: 178 QRSD: 78 QT: 438 QTc: 492 Hancock: P: 74 AL: 178 QRS: 54 T: 36 INTERPRETIVE STATEMENTS: Normal sinus rhythm Prolonged QT Abnormal ECG Compared to ECG 02/02/2019 04:21:56 Prolonged QT interval now present Atrial premature complex(es) no longer present Aberrant conduction of supraventricular beat(s) no longer present Electronically Signed On 09-12-19 08:23:58 NUTRITIONIST [facility] by Ric Bernal
[2019-09-12 08:41] VITALS: O2SAT 99
[2019-09-12] MEDS ORDERED: PNEUMOCOCCAL VACCINE 0.5 ML IMVAC ONE ×2 (09:00→16:00)
[2019-09-12] MEDS ORDERED: INFLUENZA VACCINE (for 3y+) 0.5 ML DOSE IMVAC ONE ×2 (09:00→16:00)
[2019-09-12] MEDS ORDERED: RIVAROXABAN 15 MG TABLET PO SCH (09:00)
[2019-09-12] MEDS ORDERED: APIXABAN 5 MG TABLET PO SCH (09:00)
--- NOTE | 2019-09-12 10:06 | P.HP ---
Certification for Inpatient Patient admitted to: Observation With expected LOS: <2 Midnights Patient will require the following post-hospital care: None Practitioner: I am a practitioner with admitting privileges, knowledge of patient current condition, hospital course, and medical plan of care. Services: Services provided to patient in accordance with Admission requirements found in Title 42 Section 412.3 of the Code of Federal Regulations Patient History Date of Service: 09/12/19 Reason for admission: Left lower extremity extensive DVT History of Present Illness: Patient is a 78-year-old female came to the hospital in extensive left lower extremity DVT. Patient had a prior DVT in the last year. Patient was treated with Xarelto for 6 months. This was recently discontinued. Patient been doing well until the pain became very severe so she came into the emergency room. In the emergency room patient had a Doppler which showed extension of the common femoral DVT to the popliteal vein into the saphenous vein. Patient will be admitted for further evaluation. Patient is also having pain on the right leg. Will go ahead and get a Doppler of this as well. The patient as of Doppler of the right lower extremity will need to rule out acute malignancy. Patient will be admitted for further evaluation. Allergies allopurinol Adverse Reaction (Severe, Uncoded 09/12/19 05:03) kidney problem Home Medications: Ranitidine [Zantac*] 150 mg PO BID 11/29/18 Atorvastatin Calcium [Lipitor] 40 mg PO BEDTIME #30 tab 02/03/19 Furosemide [Lasix] 20 mg PO BIDL #60 tab 02/03/19 Potassium Chloride [Klor-Con 10] 10 meq PO DAILY #30 tablet.er 02/03/19 - Past Medical/Surgical History Has patient received pneumonia vaccine in the past: No Diabetic: No -: Hiatal Hernia -: CHF -: history of DVT-left leg -: gout -: Knee Replacement-left -: Tubal ligation -: cholecystectomy -: cataracts -: appendectomy -: tonsillectomy -: knee surgery - Family History Mother Medical History: Heart disease - Social History Smoking Status: Never smoker Alcohol use: Yes CD- Drugs: No Caffeine use: Yes Place of Residence: Home Review of Systems 10-point ROS is otherwise unremarkable Physical Examination - Vital Signs Temperature: 97.5 F Blood Pressure: 135/59 Pulse: 70 Respirations: 16 Pulse Ox (%): 99 - Physical Exam General: Alert, In no apparent distress, Oriented x3 HEENT: Atraumatic, PERRLA, Mucous membr. moist/pink, EOMI, Sclerae nonicteric Neck: Supple, 2+ carotid pulse no bruit, No LAD, Without JVD or thyroid abnormality Respiratory: Clear to auscultation bilaterally, Normal air movement Cardiovascular: Regular rate/rhythm, Normal S1 S2, No murmurs Gastrointestinal: Normal bowel sounds, Soft and benign, Non-distended, No tenderness Musculoskeletal: No clubbing, No swelling, No tenderness Integumentary: Tenderness/swelling (Of the left lower extremity) Neurological: Normal gait, Normal speech, Normal strength at 5/5 x4 extr, Normal tone, Sensation intact, Cranial nerves 3-12 intact, Normal affect Lymphatics: No axilla or inguinal lymphadenopathy - Studies Laboratory Data (last 24 hrs) 09/11/19 23:35: PT 12.0, INR 1.02 09/11/19 23:35: WBC 7.1, Hgb 12.7, Hct 38.3, Plt Count 298 09/11/19 23:35: Sodium 141, Potassium 4.0, BUN 13, Creatinine 0.92, Glucose 91, Magnesium 2.2, Total Bilirubin 0.7, AST 13 L, ALT 18, Alkaline Phosphatase 69 Assessment & Plan - Problems (Diagnosis) (1) Left leg DVT Onset Date: 07/29/18 Current Visit: No Status: Acute (2) Arrhythmia Current Visit: No Status: Acute Qualifiers: Arrhythmia type: atrial fibrillation (3) CHF (congestive heart failure) Onset Date: 07/29/18 Current Visit: No Status: Acute (4) History of DVT (deep vein thrombosis) Current Visit: No Status: Chronic - Plan Plan: 1. Continue with anti coagulants for a DVT. Will go ahead and start patient back on Xarelto twice a day. Will do this for a week and them patient can take it once daily. Patient may need hypercoagulable workup as well. Patient is on estrogen receptor berenice which could increase her risk of DVT. At this time patient is okay to ambulate out of bed. Possible discharge home in 24-48 hr. Discharge Plan: Home Plan to discharge in: 24 Hours - Advance Directives Does patient have a Living Will: No Does patient have a Durable POA for Healthcare: No - Code Status/Comfort Care Code Status Assessed: Yes Code Status: Full Code Critical Care: No Time Spent Managing PTS Care (In Minutes): 45
--- NOTE | 2019-09-12 10:27 | RAD REPORT ---
EXAM DESCRIPTION: USExtremity Venous Uni Ltd09/12/2019 10:13 am CLINICAL HISTORY: Right leg pain COMPARISON: None. FINDINGS: Right common femoral, superficial femoral, popliteal and right posterior tibial veins are compressible and demonstrate augmentation. Doppler demonstrates good flow. IMPRESSION: No evidence of deep venous thrombosis involving the right lower extremity.
--- NOTE | 2019-09-12 11:04 | RAD REPORT ---
EXAM DESCRIPTION: US - Extremity Venous Uni Ltd - 09/11/2019 11:15 pm ADDENDUM #1 THIS REPORT CONTAINS FINDINGS THAT MAY BE CRITICAL TO PATIENT CARE: The findings were verbally discussed via telephone conference with Reena Dickey NP by Dr. Junior Mar on 09/12/2019 3:16 AM NEEDLEWORKER .The results were acknowledged and understood. Electronically signed by: Greta Mar MD 09/12/2019 3:16 AM NEEDLEWORKER End of Addendum EXAM DESCRIPTION: US Duplex Left Lower Extremity Veins CLINICAL HISTORY: The patient is 78 years old and is Female; PAIN TECHNIQUE: Real-time duplex ultrasound scan of the left lower extremity veins integrating B-mode two -dimensional vascular structure, Doppler spectral analysis, color flow Doppler imaging and compressio n. COMPARISON: No relevant prior studies available. FINDINGS: DEEP VEINS: Echogenic thrombus is present within the left common femoral vein and proxim al femoral vein. Remainder of the left lower leg vessels are patent. SUPERFICIAL VEINS: Unremarkable. No thrombus in the visualized great saphenous vein. SOFT TISSUES: No acute findings. No popliteal cyst. IMPRESSION: DVT within the left common femoral and proximal femoral veins. Electronically signed by: Greta Mar MD 09/12/2019 3:07 AM NEEDLEWORKER Due to temporary technical issues with the PACS/Fluency reporting system, reports are being signed by the in house radiologist as a courtesy to ensure prompt reporting. The interpreting radiologist is f ully responsible for the content of the report.
--- NOTE | 2019-09-12 11:06 | P.DS ---
Admission Date: 09/12/19 Discharge Date: 09/12/19 Primary Care Provider: Dr. Sol Disposition: ROUTINE DISCHARGE Discharge Condition: GOOD Reason for Admission: Left lower extremity extensive DVT Consultations: none Procedures: ECHO: Obtained Left Venous doppler: FINDINGS: DEEP VEINS: Echogenic thrombus is present within the left common femoral vein and proximal femoral vein. Remainder of the left lower leg vessels are patent. SUPERFICIAL VEINS: Unremarkable. No thrombus in the visualized great saphenous vein. SOFT TISSUES: No acute findings. No popliteal cyst. IMPRESSION: DVT within the left common femoral and proximal femoral veins. Right Venous Doppler: FINDINGS: Right common femoral, superficial femoral, popliteal and right posterior tibial veins are compressible and demonstrate augmentation. Doppler demonstrates good flow. IMPRESSION: No evidence of deep venous thrombosis involving the right lower extremity. Medical problem list: Recurrent left lower extremity DVT Chronic diastolic CHF Hyperlipidemia GERD Obesity, BMI 43.6 Brief History of Present Illness: 78-year-old female presented to the emergency room with edema to the left lower extremity. Patient found to have DVT to the left lower extremity. Patient with prior history of DVT in the past. She was treated for over 1 year. She has been off medication for quite some time. Patient was admitted for further evaluation and treatment. Hospital Course: Patient found to have recurrent left lower extremity DVT. Patient previously on anti coagulation therapy-Eliquis in the past. She has been off medication for some time. Patient will require anti coagulation therapy at discharge. Patient will likely require lifelong chronic anti coagulation therapy. At discharge she will continue with Eliquis 10 mg twice daily for 7 days then 5 mg twice daily indefinitely. Education on Eliquis and DVT will be provided. Patient will need a follow up with her PCP in 1-2 weeks to follow up this hospitalization. Will recommend hematology/oncology evaluation in the near future to further address. Patient with history of chronic diastolic CHF. This has remained stable. At discharge she will continue with a 1500 cc per day fluid restriction and low- salt diet. Patient will also continue with Lasix 20 mg 1 pill twice daily along with potassium supplementation. Recommend to monitor her weight daily. If her weight increases by more than 5 lb she is to contact her PCP for further recommendation. Patient with history of GERD. At discharge she may continue with Zantac 150 mg 1 pill twice daily. Patient with hyperlipidemia. At discharge she will continue with Lipitor 40 mg daily. Vital Signs/Physical Exam: Temp Pulse Resp BP Pulse Ox 97.5 F 70 16 135/59 L 99 09/12/19 10:09 09/12/19 10:09 09/12/19 10:09 09/12/19 10:09 09/12/19 10:09 General: Alert, In no apparent distress, Oriented x3, Cooperative HEENT: Atraumatic Neck: Supple Respiratory: Clear to auscultation bilaterally, Normal air movement Cardiovascular: Normal pulses, Regular rate/rhythm Gastrointestinal: Normal bowel sounds, Soft and benign, Non-distended Musculoskeletal: No tenderness, No warmth Integumentary: Tenderness/swelling (swelling to the lower ext. improved) Neurological: Normal speech, Normal strength at 5/5 x4 extr, Normal tone, Normal affect Laboratory Data at Discharge: WBC 7.1 K/uL (4.3-10.9) 09/11/19 23:35 Hgb 12.7 g/dL (12.0-15.0) 09/11/19 23:35 Hct 38.3 % (36.0-45.0) 09/11/19 23:35 Plt Count 298 K/uL (152-406) 09/11/19 23:35 PT 12.0 SECONDS (9.5-12.5) 09/11/19 23:35 INR 1.02 09/11/19 23:35 Sodium 141 mmol/L (136-145) 09/11/19 23:35 Potassium 4.0 mmol/L (3.5-5.1) 09/11/19 23:35 BUN 13 mg/dL (7-18) 09/11/19 23:35 Creatinine 0.92 mg/dL (0.55-1.3) 09/11/19 23:35 Glucose 91 mg/dL (74-106) 09/11/19 23:35 Magnesium 2.2 mg/dL (1.8-2.4) 09/11/19 23:35 Total Bilirubin 0.7 mg/dL (0.2-1.0) 09/11/19 23:35 AST 13 U/L (15-37) L 09/11/19 23:35 ALT 18 U/L (12-78) 09/11/19 23:35 Alkaline Phosphatase 69 U/L (45-117) 09/11/19 23:35 Home Medications: Ranitidine [Zantac*] 150 mg PO BID 11/29/18 Atorvastatin Calcium [Lipitor] 40 mg PO BEDTIME #30 tab 02/03/19 Furosemide [Lasix*] 20 mg PO BIDL #60 tab 02/03/19 Potassium Chloride [Klor-Con 10] 10 meq PO DAILY #30 tablet.er 02/03/19 Apixaban [Eliquis] 5 mg PO SEECOM #70 tablet 09/12/19 New Medications: Apixaban [Eliquis] 5 mg PO SEECOM #70 tablet Patient Discharge Instructions: 1. Recommend follow up with her PCP in 1 week to follow up this hospitalization. 2. Patient found to have recurrent left lower extremity DVT. Patient previously on anti coagulation therapy-Eliquis in the past. She has been off medication for some time. Patient will require anti coagulation therapy at discharge. Patient will likely require lifelong chronic anti coagulation therapy. At discharge she will continue with Eliquis 10 mg twice daily for 7 days then 5 mg twice daily indefinitely. Education on Eliquis and DVT will be provided. Patient will need a follow up with her PCP in 1-2 weeks to follow up this hospitalization. Will recommend hematology/ oncology evaluation in the near future to further address. 3. Patient with history of chronic diastolic CHF. This has remained stable. At discharge she will continue with a 1500 cc per day fluid restriction and low-salt diet. Patient will also continue with Lasix 20 mg 1 pill twice daily along with potassium supplementation. Recommend to monitor her weight daily. If her weight increases by more than 5 lb she is to contact her PCP for further recommendation. 4. Patient with history of GERD. At discharge she may continue with Zantac 150 mg 1 pill twice daily. 5. Patient with hyperlipidemia. At discharge she will continue with Lipitor 40 mg daily. Diet: AHA Activity: Fall precautions Time spent managing pt's care (in minutes): 55
--- NOTE | 2019-09-12 12:35 | ECHO ---
HEIGHT: 5 ft 0 in WEIGHT: 223 lb 4.8 oz DATE OF STUDY: 09/12/[address]: Roosevelt Valdes DO 2-DIMENSIONAL: YES M.MODE: YES DOPPLER: YES COLOR FLOW: YES TDS: NO PORTABLE: NO DEFINITY: NO BUBBLE STUDY: NO DIAGNOSIS: DEEP VEIN THROMBOSIS, RECURRENT CARDIAC HISTORY: CATHERIZATION: NO SURGERY: NO PROSTHETIC VALVE: NO PACEMAKER: NO MEASUREMENTS (cm) DIASTOLIC (NORMALS) SYSTOLIC (NORMALS) IVSd 0.8 (0.6-1.2) LA Diam 3.2 (1.9-4.0) LVEF 68% LVIDd 4.5 (3.5-5.7) LVIDs 2.8 (2.0-3.5) %FS 38% LVPWd 1.0 (0.6-1.2) Ao Diam 2.5 (2.0-3.7) 2 DIMENSIONAL ASSESSMENT: RIGHT ATRIUM: NORMAL LEFT ATRIUM: NORMAL RIGHT VENTRICLE: NORMAL LEFT VENTRICLE: NORMAL TRICUSPID VALVE: NORMAL MITRAL VALVE: NORMAL PULMONIC VALVE: NORMAL AORTIC VALVE: NORMAL PERICARDIAL EFFUSION: NONE AORTIC ROOT: NORMAL LEFT VENTRICULAR WALL MOTION: NORMAL. DOPPLER/COLOR FLOW: PHYSIOLOGIC TRICUSPID REGURGITATION. NORMAL RIGHT VENTRICULAR SYSTOLIC PRESSURE. COMMENTS: NORMAL 2D ECHO WITH DOPPLER. TECHNOLOGIST: ELIZABETH TERRAZAS
[2019-09-12 16:21] VITALS: BP 141/61; TEMP 98.1
== END 2019-09-12 18:00 | disposition home or self-care (01) ==
LOC: ER 22:23 → ERHOLD 09-12 04:02 → 4TH 09-12 04:24
PROVIDERS: ADMIT Hospitalist; ATTEND Hospitalist
DX: I82.412 Acute embolism and thrombosis of left femoral vein (principal); I11.0 Hypertensive heart disease with heart failure; I50.32 Chronic diastolic (congestive) heart failure; E78.5 Hyperlipidemia, unspecified; K21.9 Gastro-esophageal reflux disease without esophagitis; E66.9 Obesity, unspecified; Z68.41 Body mass index [BMI] 40.0-44.9, adult; Z96.652 Presence of left artificial knee joint; Z23 Encounter for immunization
CPT/HCPCS: 93005; 93306; 85025; 80048; 36415; 83735; 85610; 80076; 84484; 83880; 73610; 90471 ×2; 93971 ×2; 90670; 96372; 99285; Q2035; J1650; J7030; G0378 ×2

== ENCOUNTER 2020-09-26 07:04 | Emergency (ER) | payer OTHER ==
--- NOTE | 2020-09-26 10:55 | RAD REPORT ---
EXAM DESCRIPTION: Ivon Single View2/ 10:49 am CLINICAL HISTORY: Shortness of breath COMPARISON: 2019 FINDINGS: The lungs appear clear of acute infiltrate. The heart is normal size IMPRESSION: No acute abnormalities displayed
--- NOTE | 2020-09-26 10:56 | RAD REPORT ---
EXAM DESCRIPTION: RAD - Foot Right 3 View - 09/26/2020 10:49 am CLINICAL HISTORY: Right foot pain FINDINGS: No fracture or dislocation is seen. Large plantar calcaneal spur. Bones are osteoporotic.
--- NOTE | 2020-09-26 10:58 | RAD REPORT ---
EXAM DESCRIPTION: RAD - Foot Left 3 View - 09/26/2020 10:49 am CLINICAL HISTORY: Left Foot pain FINDINGS: No fracture or dislocation is seen. Large plantar calcaneal spur. Bones are osteoporotic
[2020-09-26 11:04] LABS: Absolute Lymphocytes (CBC) 2.1 K/uL (0.7-4.9); Basophils % 0.6 % (0-1.3); Lymphocytes % 22.3 % (15.3-44.8); Protime INR 1.15; RBC Red Blood Cell Count 3.93 M/uL (3.86-4.86)
[2020-09-26 11:21] LABS: ALT/SGPT 18 U/L (12-78); AST/SGOT 13 U/L (15-37); Albumin 3.5 g/dL (3.4-5.0); Alkaline Phosphatase 75 U/L (45-117); BUN Blood Urea Nitrogen 19 mg/dL (7-18); Bicarbonate 25 mmol/L (21-32); Bilirubin Direct 0.3 mg/dL (0-0.2); Bilirubin Total 0.7 mg/dL (0.2-1.0); Glucose Level 109 mg/dL (74-106); NT PRO-BNP 496 pg/mL (<450); Potassium 4.6 mmol/L (3.5-5.1); Sodium Level 144 mmol/L (136-145); Troponin (Emerg Dept Use Only) < 0.02 ng/mL (0.0-0.045)
--- NOTE | 2020-09-26 11:50 | RAD REPORT ---
EXAM DESCRIPTION: USExtrem Venous W Compress Bil09/26/2020 11:31 am CLINICAL HISTORY: Leg pain COMPARISON: October 2019 FINDINGS: The common femoral, superficial femoral, popliteal and posterior tibial veins bilaterally are compressible and demonstrate augmentation. Doppler demonstrates good flow. IMPRESSION: No evidence of deep venous thrombosis involving either lower extremity.
--- NOTE | 2020-09-26 11:58 | ER ---
Nurse's Notes [facility] Name: Cherise Harrell Age: 79 yrs Sex: Female : 1940 Arrival Date: 09/26/2020 Time: 07:05 Bed 19 Private MD: Diagnosis: Pain in unspecified toe(s)-Left and Right Great Toes;Edema, unspecified Presentation: 09/26 07:16 Acuity: RICCARDO 5 sg 07:16 Chief complaint: EMS states: pt c/o toe pain, no injury or trauma to the foot or toe, sg pt states having had a hx of blood clot and concerned this could be related. Coronavirus screen: Client denies travel out of the [place] in the last 14 days. At this time, the client does not indicate any symptoms associated with coronavirus-19. Ebola Screen: Patient negative for fever greater than or equal to 101.5 degrees Fahrenheit, and additional compatible Ebola Virus Disease symptoms Patient denies exposure to infectious person. Patient denies travel to an Ebola-affected area in the 21 days before illness onset. No symptoms or risks identified at this time. Initial Sepsis Screen: Does the patient meet any 2 criteria? No. Patient's initial sepsis screen is negative. Does the patient have a suspected source of infection? No. Patient's initial sepsis screen is negative. Risk Assessment: Do you want to hurt yourself or someone else? Patient reports no desire to harm self or others. Onset of symptoms was September 26, 2020. Care prior to arrival: None. Transition of care: patient was not received from another setting of care. 07:16 Method Of Arrival: EMS: [facility] sg Historical: - Allergies: 07:29 Allopurinol; sg - PMHx: 07:29 blood clots; CHF; DVT; Gout; Hypertension; sg - PSHx: 07:29 left knee replacement; sg - Immunization history:: Adult Immunizations up to date. - Social history:: Smoking status: Patient denies any tobacco usage or history of. Screenin:18 Abuse screen: Denies threats or abuse. Denies injuries from another. Nutritional ph screening: No deficits noted. Tuberculosis screening: No symptoms or risk factors identified. Fall Risk None identified. Assessment: 10:45 General: Appears in no apparent distress. comfortable, obese, Behavior is calm, ph cooperative, appropriate for age, Denies fever, feeling ill. Pain: Pain: Complains of pain in toes. 10:45 Neuro: Level of Consciousness is awake, alert, obeys commands, Oriented to person, ph place, time, situation. Cardiovascular: Capillary refill < 3 seconds in bilateral fingers Patient's skin is warm and dry. Respiratory: Airway is patent Respiratory effort is even, unlabored, Respiratory pattern is regular, symmetrical. Derm: Skin is intact, is healthy with good turgor, Skin is pink, warm \T\ dry. Musculoskeletal: Circulation, motion, and sensation intact. Range of motion: intact in all extremities. 11:11 Reassessment: Pt taken to US via stretcher. ph Vital Signs: 07:16 BP 156 / 77; Pulse 87; Resp 16; Pulse Ox 97% on R/A; Pain 4/10; sg 11:15 BP 152 / 68; Pulse 72; Resp 18; Temp 97.8; Pulse Ox 99% on R/A; ph 07:16 via EMS VS machine sg ED Course: 07:05 Patient arrived in ED. rg4 07:16 Triage completed. sg 07:16 Arm band placed on. sg 09:56 Gigi Mortensen PA is PHCP. cp 09:56 Philip Camarillo MD is Attending Physician. cp 10:11 Malini Moreau, PHILIP is Primary Nurse. ph 10:20 EKG done, by ED staff, reviewed by Gigi GERBER. dh3 10:49 XRAY Foot LEFT 3 View In Process Unspecified. EDMS 10:49 XRAY Foot RIGHT 3 View In Process Unspecified. EDMS 10:49 XRAY Chest (1 view) In Process Unspecified. EDMS 10:51 Missed attempt(s): 22 gauge in left forearm. Bleeding controlled, band aid applied, dh3 catheter tip intact. 10:53 Initial lab(s) drawn, by me, sent to lab. Missed attempt(s): 20 gauge in left dh3 antecubital area. Bleeding controlled, band aid applied, catheter tip intact. 11:18 Patient has correct armband on for positive identification. Bed in low position. Call ph light in reach. Side rails up X 1. Pulse ox on. NIBP on. Door closed. Noise minimized. 11:28 US Extremity Venous W Compression Cody In Process Unspecified. EDMS 13:37 No provider procedures requiring assistance completed. Patient did not have IV access ss during this emergency room visit. Administered Medications: 12:21 Drug: LaSIX 40 mg Route: PO; ph 12:30 Follow up: Response: No adverse reaction ph Outcome: 11:58 Discharge ordered by MD. cp 13:37 Discharged to home ambulatory. ss 13:37 Condition: good 13:37 Discharge instructions given to patient, Instructed on discharge instructions, follow up and referral plans. Demonstrated understanding of instructions, follow-up care. 13:38 Patient left the ED. ss Signatures: Dispatcher [employer] EDMS Ishmael Santana RN RN Geraldine Topete RN RN Malini Moreau RN RN ph Gigi Mortensen PA PA cp Garcia, Rubi rg4 Deborah Rodriguez 3 Corrections: (The following items were deleted from the chart) 18:34 10:45 Pain: ph ph
--- NOTE | 2020-09-26 11:59 | EDPHYS ---
Physician Documentation [facility] Name: Cherise Harrell Age: 79 yrs Sex: Female : 1940 Arrival Date: 09/26/2020 Time: 07:05 Bed 19 Private MD: ED Physician Philip Camarillo HPI: 09/26 10:05 This 79 yrs old Female presents to ER via EMS with complaints of Toe Pain. cp 10:05 The patient presents with pain, that is acute, swelling of left and right lower legs. cp 10:05 The patient has shortness of breath with light activity. Associated signs and symptoms: cp Pertinent negatives: chest pain, productive cough, diaphoresis, dizziness, fever, numbness in extremities. 10:05 Patient reports to bilateral great toes and concerned about possible blood clot to cp lower legs. Patient also reports she has been off prescribed Lasix for past couple months and primary physician has not refilled prescription. Historical: - Allergies: 07:29 Allopurinol; sg - PMHx: 07:29 blood clots; CHF; DVT; Gout; Hypertension; sg - PSHx: 07:29 left knee replacement; sg - Immunization history:: Adult Immunizations up to date. - Social history:: Smoking status: Patient denies any tobacco usage or history of. ROS: 10:10 Constitutional: Negative for body aches, chills, fever, poor PO intake. cp 10:10 Eyes: Negative for injury, pain, redness, and discharge. cp 10:10 ENT: Negative for ear pain, sore throat, difficulty swallowing, difficulty handling secretions. 10:10 Cardiovascular: Positive for edema, Negative for chest pain, palpitations. 10:10 Respiratory: Positive for shortness of breath, Negative for cough, wheezing. 10:10 Abdomen/GI: Negative for abdominal pain, nausea, vomiting, and diarrhea. 10:10 Back: Negative for pain at rest, pain with movement. 10:10 MS/extremity: Positive for pain, of the left great toe and right great toe. 10:10 Skin: Negative for cellulitis, rash. 10:10 Neuro: Negative for altered mental status, headache, syncope, weakness. 10:10 All other systems are negative. Exam: 10:17 Constitutional: The patient appears in no acute distress, alert, awake, cp non-diaphoretic, non-toxic, well developed, well nourished, obese. 10:17 Head/Face: Normocephalic, atraumatic. cp 10:17 Eyes: Periorbital structures: appear normal, Conjunctiva: normal, no exudate, no injection, Sclera: no appreciated abnormality, Lids and lashes: appear normal, bilaterally. 10:17 ENT: External ear(s): are unremarkable, Nose: is normal, Mouth: Lips: moist, Oral mucosa: moist, Posterior pharynx: Airway: no evidence of obstruction, patent. 10:17 Neck: ROM/movement: is normal, is supple, without pain, no range of motions limitations. 10:17 Chest/axilla: Inspection: normal, Palpation: is normal, no crepitus, no tenderness. 10:17 Cardiovascular: Rate: normal, Rhythm: regular, Edema: ankle edema, that is mild, JVD: is not appreciated. 10:17 Respiratory: the patient does not display signs of respiratory distress, Respirations: normal, no use of accessory muscles, no retractions, labored breathing, is not present, Breath sounds: are clear throughout, no decreased breath sounds, no stridor, no wheezing. 10:17 Abdomen/GI: Inspection: abdomen appears normal, Palpation: abdomen is soft and non-tender, in all quadrants. 10:17 Back: pain, is absent, ROM is normal. 10:17 Musculoskeletal/extremity: DVT Exam: no erythema, no increased warmth, swelling, that is mild, of the right leg, of the left leg, tenderness, that is mild, of the right leg, of the left leg. 10:17 Skin: cellulitis, is not appreciated, no rash present. 10:17 Neuro: Orientation: to person, place \T\ time. Mentation: is normal, Motor: moves all fours, strength is normal. 10:29 ECG was reviewed by the Attending Physician. cp Vital Signs: 07:16 BP 156 / 77; Pulse 87; Resp 16; Pulse Ox 97% on R/A; Pain 4/10; sg 11:15 BP 152 / 68; Pulse 72; Resp 18; Temp 97.8; Pulse Ox 99% on R/A; ph 07:16 via EMS VS machine sg MDM: 10:02 Patient medically screened. cp 10:40 Differential diagnosis: dislocation, closed fracture, contusion, DVT, CHF exacerbation. 11:57 Data reviewed: vital signs, nurses notes, lab test result(s), EKG, radiologic studies, cp plain films, ultrasound. 11:57 Test interpretation: by ED physician or midlevel provider: ECG, plain radiologic cp studies. Counseling: I had a detailed discussion with the patient and/or guardian regarding: the historical points, exam findings, and any diagnostic results supporting the discharge/admit diagnosis, lab results, radiology results, the need for outpatient follow up, a family practitioner, to return to the emergency department if symptoms worsen or persist or if there are any questions or concerns that arise at home. 09/26 10:09 Order name: Basic Metabolic Panel; Complete Time: 11: cp 09/26 11:26 Interpretation: Normal except: CL 112; GLUC 109; BUN 19; GFR 48. cp 09/26 10:09 Order name: CBC with Diff; Complete Time: 11: cp 09/26 10:09 Order name: LFT's; Complete Time: 11: cp 09/26 11:26 Interpretation: Normal except: AST 13; BILID 0.3; A/G 1.0. cp 09/26 10:09 Order name: Magnesium; Complete Time: 11: cp 09/26 10:09 Order name: NT PRO-BNP; Complete Time: 11: cp 09/26 10:09 Order name: PT-INR; Complete Time: 11: cp 09/26 10:03 Order name: US Extremity Venous W Compression Cody; Complete Time: 11:56 cp 09/26 11:56 Interpretation: Report reviewed. cp 09/26 10:03 Order name: XRAY Foot LEFT 3 View; Complete Time: 11: cp 09/26 10:03 Order name: XRAY Foot RIGHT 3 View; Complete Time: 11: cp 09/26 10:09 Order name: Troponin (emerg Dept Use Only); Complete Time: 11: cp 09/26 10:09 Order name: XRAY Chest (1 view); Complete Time: : cp 09/26 12:11 Order name: SARS-COV-2 RT PCR EDMS 09/26 10:09 Order name: EKG; Complete Time: 10:10 cp 09/26 10:09 Order name: Cardiac monitoring; Complete Time: 11: cp 09/26 10:09 Order name: EKG - Nurse/Tech; Complete Time: 10:29 cp 09/26 10:09 Order name: Labs collected and sent; Complete Time: 10:59 cp 09/26 10:09 Order name: O2 Per Protocol; Complete Time: 10:29 cp 09/26 10:09 Order name: O2 Sat Monitoring; Complete Time: 10:30 cp EC: Rate is 90 beats/min. Rhythm is regular. CO interval is normal. QRS interval is normal. cp QT interval is normal. T waves are Inverted in lead aVR. Interpreted by me. Reviewed by me. Administered Medications: 12: Drug: LaSIX 40 mg Route: PO; ph 12:30 Follow up: Response: No adverse reaction ph Disposition: :38 Co-signature as Attending Physician, Philip Camarillo MD. ma2 Disposition: 09/26/20 11:58 Discharged to Home. Impression: Pain in unspecified toe(s) - Left and Right Great Toes, Edema, unspecified. - Condition is Stable. - Discharge Instructions: Edema, Musculoskeletal Pain. - Prescriptions for Lasix 40 mg Oral Tablet - take 1 tablet by ORAL route once daily for 5 days; 5 tablet. - Medication Reconciliation Form, Thank You Letter, Antibiotic Education, Prescription Opioid Use form. - Follow up: Private Physician; When: 2 - 3 days; Reason: Recheck today's complaints. - Problem is new. - Symptoms have improved. Signatures: Dispatcher [employer] EDMI Ishmael Santana RN RN Geraldine Topete RN RN ss Hall, Patricia, RN RN ph Balbina, Gigi, ZABRINA PA Philip Corley MD MD ma2 Corrections: (The following items were deleted from the chart) 11:19 10:10 CORONAVIRUS+MR.LAB.BRZ ordered. [facility] [place] EDMI 13:38 11:58 09/26/2020 11:58 Discharged to Home. Impression: Pain in unspecified toe(s) - ss Left and Right Great Toes; Edema, unspecified. Condition is Stable. Forms are Medication Reconciliation Form, Thank You Letter, Antibiotic Education, Prescription Opioid Use. Follow up: Private Physician; When: 2 - 3 days; Reason: Recheck today's complaints. Problem is new. Symptoms have improved. 09/27 13:19 09/26 10:05 Patient reports to bilateral great toes and concerned about possible blood cp clot to lower legs. cp
[2020-09-26] MEDS ORDERED: FUROSEMIDE 40 MG TABLET ONE (12:30)
[2020-09-26 13:46] VITALS: BP 156/77; O2SAT 97
== END 2020-09-26 13:38 | disposition home or self-care (01) ==
LOC: ER 07:04
DX: M79.675 Pain in left toe(s) (principal); M79.674 Pain in right toe(s); R60.9 Edema, unspecified; Z88.8 Allergy status to other drugs, medicaments and biological substances; Z20.822 Contact with and (suspected) exposure to COVID-19
CPT/HCPCS: 85025; 80048; 36415; 83735; 85610; 80076; 84484; 83880; 71045; 73630 ×2; 93970; 99284; U0003

== ENCOUNTER 2020-12-14 15:37 | Inpatient (IN) | payer OTHER ==
--- NOTE | 2020-12-14 16:04 | RAD REPORT ---
EXAM DESCRIPTION: RAD - Chest Single View - 12/14/2020 3:55 pm CLINICAL HISTORY: COUGH Chest pain. COMPARISON: No comparisons FINDINGS: Portable technique limits examination quality. Mild to moderate bilateral pulmonary opacities noted which may represent pulmonary edema or infection . The heart is upper limit normal in size. No displaced fractures.
[2020-12-14] MEDS ORDERED: ONDANSETRON 4 MG/2 ML VIAL ONE (16:11)
[2020-12-14 16:24] LABS: Absolute Lymphocytes (CBC) 0.6 K/uL (0.7-4.9); Basophils % 0.3 % (0-1.3); Hematocrit 39.9 % (36.0-45.0); Lymphocytes % 6.5 % (15.3-44.8); MPV 7.8 fL (7.6-11.3)
[2020-12-14 16:26] LABS: Protime INR 1.06
[2020-12-14 16:47] LABS: BUN Blood Urea Nitrogen 27 mg/dL (7-18); Bicarbonate 22 mmol/L (21-32); Glucose Level 132 mg/dL (74-106); Sodium Level 145 mmol/L (136-145)
[2020-12-14 16:48] LABS: ALT/SGPT 23 U/L (12-78); Albumin 2.8 g/dL (3.4-5.0); Alkaline Phosphatase 65 U/L (45-117); Bilirubin Direct 0.4 mg/dL (0-0.2); Bilirubin Total 0.8 mg/dL (0.2-1.0); NT PRO-BNP 417 pg/mL (<450); Protein, Total 7.2 g/dL (6.4-8.2); Troponin (Emerg Dept Use Only) < 0.02 ng/mL (0.0-0.045)
[2020-12-14 16:52] LABS: AST/SGOT 23 U/L (15-37); Magnesium 2.2 mg/dL (1.8-2.4); Potassium 4.4 mmol/L (3.5-5.1)
--- NOTE | 2020-12-14 17:49 | RAD REPORT ---
EXAM DESCRIPTION: CT - Head Brain Wo Cont - 12/14/2020 5:38 pm CLINICAL HISTORY: WEAKNESS Headache, drowsiness COMPARISON: Head Brain Wo Cont dated 02/02/2019Head Brain Wo Cont dated 02/02/2019 TECHNIQUE: All CT scans are performed using dose optimization technique as appropriate and may inclu de automated exposure control or mA/KV adjustment according to patient size. FINDINGS: No intracranial hemorrhage, hydrocephalus or extra-axial fluid collection.No areas of brai n edema or evidence of midline shift. The paranasal sinuses and mastoids are clear. The calvarium is intact. IMPRESSION: No acute intracranial abnormality.
[2020-12-14] MEDS ORDERED: FUROSEMIDE 20 MG/ 2ML VIAL ONE (18:03)
[2020-12-14 18:18] LABS: Blood Morphology Comment NOT SEEN (NOT SEEN); Platelet Estimate ADEQ
--- NOTE | 2020-12-14 18:33 | EDPHYS ---
Physician Documentation [facility] Name: Cherise Harrell Age: 79 yrs Sex: Female : 1940 Arrival Date: 12/14/2020 Time: 15:38 Bed 30 Private MD: ED Physician Gigi Goss HPI: 12/14 15:45 This 79 yrs old Female presents to ER via EMS with complaints of cp Nausea/Vomiting, General Weakness. 15:45 The patient's problem is reported as weakness, that is generalized. cp 15:45 Onset: The symptoms/episode began/occurred gradually. Duration: The episode is cp continuous. 15:45 Associated signs and symptoms: Pertinent positives: nausea, vomiting, weakness, cough, cp Pertinent negatives: abdominal pain, chest pain, fever. 15:45 Patient's baseline: Neuro: alert and fully oriented, Motor: no deficits, Ambulation: cp walks with assist only, Speech: normal. EMS reports patient stopped taking prescribed meds for past 2 weeks. Historical: - Allergies: 15:41 Allopurinol; hb - Home Meds: 15:41 Eliquis 5 mg oral tab [Active]; atorvastatin 20 mg oral tab 1 tab once daily [Active]; hb famotidine 20 mg Oral tab 1 tab once daily [Active]; levothyroxine 100 mcg oral tab [Active]; lisinopril 20 mg Oral tab 1 tab once daily [Active]; - PMHx: 15:41 blood clots; CHF; DVT; Gout; Hypertension; Atrial Fib; hb - PSHx: 15:41 left knee replacement; hb - Immunization history:: Adult Immunizations up to date. - Social history:: Smoking status: Patient denies any tobacco usage or history of. ROS: 15:50 Constitutional: Negative for body aches, chills, fever. cp 15:50 Eyes: Negative for injury, pain, redness, and discharge. cp 15:50 Cardiovascular: Positive for edema, Negative for chest pain. 15:50 ENT: Negative for ear pain, sore throat, difficulty swallowing, difficulty handling cp secretions. 15:50 Respiratory: Positive for cough, "sounds productive", Negative for shortness of breath, cp wheezing. 15:50 Abdomen/GI: Positive for nausea and vomiting, Negative for diarrhea, constipation, black/tarry stool, rectal bleeding. 15:50 : Negative for urinary symptoms. 15:50 Skin: Negative for cellulitis, rash. 15:50 Neuro: Negative for altered mental status, headache, weakness. 15:50 All other systems are negative. Exam: 15:55 Constitutional: The patient appears in no acute distress, alert, awake, cp non-diaphoretic, non-toxic, well developed, well nourished, obese. 15:55 Head/Face: Normocephalic, atraumatic. cp 15:55 Eyes: Periorbital structures: appear normal, Pupils: equal, round, and reactive to cp light and accomodation, Extraocular movements: intact throughout, Conjunctiva: normal, no exudate, no injection, Sclera: no appreciated abnormality, Lids and lashes: appear normal, bilaterally. 15:55 ENT: External ear(s): are unremarkable, Nose: is normal, Mouth: Lips: moist, Oral mucosa: moist, Posterior pharynx: Airway: no evidence of obstruction, patent. 15:55 Neck: ROM/movement: is normal, is supple, without pain, no range of motions limitations. 15:55 Chest/axilla: Inspection: normal, Palpation: is normal, no crepitus, no tenderness. 15:55 Cardiovascular: Rate: tachycardic, Rhythm: regular, Edema: ankle edema, that is very mild, JVD: is not appreciated. 15:55 Respiratory: the patient does not display signs of respiratory distress, Respirations: cp shallow respirations, that is mild, Breath sounds: bronchial sounds, that are mild, are heard diffusely, stridor, is not appreciated, + upper airway congestion. wheezing: is not appreciated. 15:55 Abdomen/GI: Inspection: abdomen appears normal, Bowel sounds: active, all quadrants, Palpation: abdomen is soft and non-tender, in all quadrants. 15:55 Back: pain, is absent. 15:55 Skin: cellulitis, is not appreciated, no rash present. 15:55 Neuro: Orientation: no acute changes, per EMS, Mentation: able to follow commands, Motor: moves all fours, general weakness with no focal deficits. 16:05 ECG was reviewed by the Attending Physician. cp 17:55 Radiologist reports: no acute findings cp Vital Signs: 15:38 BP 149 / 74; Pulse 103; Resp 20; Temp 97.7; Pulse Ox 91% on R/A; Pain 0/10; hb 17:00 BP 119 / 63; Pulse 84; Resp 17; Pulse Ox 93% on R/A; hb 18:30 BP 116 / 56; Pulse 92; Resp 19; Pulse Ox 93% on R/A; hb MDM: 15:42 Patient medically screened. 18:20 Data reviewed: vital signs, nurses notes, lab test result(s), EKG, radiologic studies, cp plain films. 18:20 Test interpretation: by ED physician or midlevel provider: ECG, plain radiologic cp studies. Physician consultation: Praneeth GERBER was called at 18:20, was contacted at 18:20, regarding admission, to the telemetry unit. patient's condition. 12/14 15:42 Order name: Basic Metabolic Panel 12/14 15:42 Order name: CBC with Diff; Complete Time: 18:27 12/14 16:45 Interpretation: CHIDI% 83.6; LYM% 6.5; LYMA 0.6. 12/14 15:42 Order name: LFT's 12/14 15:42 Order name: Magnesium; Complete Time: 16:55 12/14 15:42 Order name: NT PRO-BNP; Complete Time: 16:55 12/14 15:42 Order name: PT-INR; Complete Time: 16:44 12/14 15:42 Order name: Troponin (emerg Dept Use Only); Complete Time: 16:55 12/14 15:43 Order name: Urine Microscopic Only; Complete Time: 21:54 EDSC 12/14 15:43 Order name: Basic Metabolic Panel; Complete Time: 16:55 [facility] 12/14 16:58 Interpretation: Normal except: CL 114; GLUC 132; BUN 27; CRE 1.39; GFR 37. 12/14 15:43 Order name: Liver (Hepatic) Function; Complete Time: 16:55 [facility] 12/14 17:24 Interpretation: Normal except: BILID 0.4; ALB 2.8; GLOB 4.4; A/G 0.6. 12/14 18:12 Order name: SARS-COV-2 RT PCR; Complete Time: 18:14 EDSC 12/14 18:17 Interpretation: SARSCOV2 RT PCR POSITIVE; Results reviewed. 12/14 18:18 Order name: Manual Differential; Complete Time: 18:27 EDMS 12/14 18:18 Order name: CRP; Complete Time: 21:54 cp 12/14 18:18 Order name: Ferritin; Complete Time: 21:54 cp 12/14 18:59 Order name: Urine Dipstick-Ancillary; Complete Time: 21:54 EDMS 12/14 19:20 Order name: D-Dimer; Complete Time: 21:54 ej 12/15 00:25 Order name: Glucose, Ancillary Testing EDMS 12/15 05:33 Order name: CBC with Automated Diff EDMS 12/15 06:13 Order name: Urinalysis EDMS 12/15 06:17 Order name: Urine Microscopic Only EDMS 12/15 06:45 Order name: Comprehensive Metabolic Panel EDMS 12/15 06:45 Order name: Phosphorus EDMS 12/15 06:45 Order name: Lipid Profile EDMS 12/15 06:45 Order name: C-Reactive Protein EDMS 12/15 06:45 Order name: T4 Free EDMS 12/15 06:45 Order name: Magnesium EDMS 12/15 06:45 Order name: Thyroid Stimulating Hormone EDMS 12/15 06:45 Order name: Ferritin EDMS 12/14 15:42 Order name: XRAY Chest (1 view); Complete Time: 16:44 cp 12/14 15:42 Order name: EKG; Complete Time: 15:43 cp 12/14 15:42 Order name: Cardiac monitoring; Complete Time: 16:10 cp 12/14 15:42 Order name: EKG - Nurse/Tech; Complete Time: 16:10 cp 12/14 15:42 Order name: IV Saline Lock; Complete Time: 16:10 cp 12/14 15:42 Order name: Labs collected and sent; Complete Time: 16:10 cp 12/14 17:25 Order name: CT Head Brain wo Cont; Complete Time: 17:54 cp 12/14 19:53 Order name: CONS Physician Consult EDMS 12/15 06:59 Order name: Hemoglobin A1c EDMS 12/15 12:29 Order name: Glucose, Ancillary Testing EDMS 12/15 16:53 Order name: Glucose, Ancillary Testing EDMS 12/15 20:04 Order name: Glucose, Ancillary Testing EDMS 12/16 04:56 Order name: CBC with Automated Diff EDMS 12/16 06:30 Order name: Basic Metabolic Panel EDMS 12/16 06:30 Order name: C-Reactive Protein EDMS 12/16 06:58 Order name: Ferritin EDMS 12/16 07:41 Order name: Glucose, Ancillary Testing EDMS 12/16 08:09 Order name: Urine Culture EDMS 12/16 12:50 Order name: Glucose, Ancillary Testing EDMS 12/16 16:36 Order name: Glucose, Ancillary Testing EDMS 12/16 20:19 Order name: Glucose, Ancillary Testing EDMS 12/17 06:10 Order name: CBC with Automated Diff EDMS 12/17 06:42 Order name: Basic Metabolic Panel EDMS 12/17 06:42 Order name: C-Reactive Protein EDMS 12/17 06:42 Order name: Ferritin EDMS 12/17 07:14 Order name: Glucose, Ancillary Testing EDMS 12/17 08:39 Order name: CBC Smear Scan EDMS 12/17 12:23 Order name: Glucose, Ancillary Testing EDMS 12/17 16:07 Order name: Glucose, Ancillary Testing EDMS 12/14 15:42 Order name: O2 Per Protocol; Complete Time: 16:10 cp 12/14 15:42 Order name: O2 Sat Monitoring; Complete Time: 16:10 cp 12/14 15:42 Order name: Cath; Complete Time: 17:52 cp 12/14 15:42 Order name: Urine Dipstick-Ancillary (obtain specimen); Complete Time: 18:59 cp EC:05 Rate is 90 beats/min. Rhythm is regular. KS interval is normal. QRS interval is normal. cp QT interval is normal. Interpreted by me. Reviewed by me. Administered Medications: 16:30 Drug: Zofran (Ondansetron) 4 mg Route: IVP; Site: left antecubital; hb 17:30 Drug: Lasix (furosemide) 20 mg Route: IVP; Site: left antecubital; hb 12/15 00:00 Drug: SOLU-Medrol (methylPrednisoLONE) 80 mg {Note: Verbal order received from ZABRINA Cabral.} Route: IVP; Site: left forearm; Disposition: 12/18 06:47 Co-signature as Attending Physician, Gigi Goss MD I agree with the assessment and karissa plan of care. Disposition: 12/14/20 18:32 Hospitalization ordered by Merlin Aponte for Inpatient Admission. Preliminary diagnosis are Other viral pneumonia, Weakness - general. - Bed requested for Intensive Care Unit. - Status is Inpatient Admission. aa5 - Condition is Stable. - Problem is new. - Symptoms have improved. Signatures: Dispatcher [employer] EDSC Lisa Rodgers, RN RN Gigi Hess MD MD cha Calderon, Audri, RN RN aa5 Gigi Mortensen, ZABRINA PA Chaya Galloway, RN RN Joe Gomes RN RN jb4 Corrections: (The following items were deleted from the chart) 12/14 16:45 16:44 CHIDI% 83.6; LYM% 6.5. cp cp 17:20 15:43 UA MICROSCOPIC+U.LAB.BRZ ordered. EDSC EDSC 20:10 18:32 Hospitalization Ordered by Merlin Aponte for Inpatient Admission. Preliminary dw diagnosis is Other viral pneumonia; Weakness - general. Bed requested for Telemetry/MedSurg (Inpatient). Status is Inpatient Admission. Condition is Stable. Problem is new. Symptoms have improved. cp 12/17 16:26 12/14 20:10 12/14/2020 18:32 Hospitalization Ordered by Merlin Aponte for Inpatient aa5 Admission. Preliminary diagnosis is Other viral pneumonia; Weakness - general. Bed requested for [facility] ER HOLD. Status is Inpatient Admission. Condition is Stable. Problem is new. Symptoms have improved. dw 12/17 17:44 16:26 12/14/2020 18:32 Hospitalization Ordered by Merlin Aponte for Inpatient aa5 Admission. Preliminary diagnosis is Other viral pneumonia; Weakness - general. Bed requested for Intensive Care Unit. Status is Inpatient Admission. Condition is Stable. Problem is new. Symptoms have improved. aa5
--- NOTE | 2020-12-14 18:33 | ER ---
Nurse's Notes [facility] Name: Cherise Harrell Age: 79 yrs Sex: Female : 1940 Arrival Date: 12/14/2020 Time: 15:38 Bed 30 Private MD: Diagnosis: Other viral pneumonia;Weakness-general Presentation: 12/14 15:38 Chief complaint: EMS states: Generalized weakness and N/V x 2 weeks, not tolerating hb fluids/medications. Coronavirus screen: Client presents with at least one sign or symptom that may indicate coronavirus-19. Standard/surgical mask placed on the client. Provider contacted for isolation considerations. Ebola Screen: No symptoms or risks identified at this time. Initial Sepsis Screen: Does the patient meet any 2 criteria? HR > 90 bpm. No. Patient's initial sepsis screen is negative. Does the patient have a suspected source of infection? No. Patient's initial sepsis screen is negative. Risk Assessment: Do you want to hurt yourself or someone else? Patient reports no desire to harm self or others. Onset of symptoms was December 01, 2020. 15:38 Method Of Arrival: EMS: [facility] 15:38 Acuity: RICCARDO 2 hb Historical: - Allergies: 15:41 Allopurinol; hb - Home Meds: 15:41 Eliquis 5 mg oral tab [Active]; atorvastatin 20 mg oral tab 1 tab once daily [Active]; hb famotidine 20 mg Oral tab 1 tab once daily [Active]; levothyroxine 100 mcg oral tab [Active]; lisinopril 20 mg Oral tab 1 tab once daily [Active]; - PMHx: 15:41 blood clots; CHF; DVT; Gout; Hypertension; Atrial Fib; hb - PSHx: 15:41 left knee replacement; hb - Immunization history:: Adult Immunizations up to date. - Social history:: Smoking status: Patient denies any tobacco usage or history of. Screenin:10 Abuse screen: Denies threats or abuse. Denies injuries from another. Nutritional hb screening: No deficits noted. Tuberculosis screening: No symptoms or risk factors identified. Fall Risk Total Lopez Fall Scale indicates Low Risk Score (25-44 pts). Fall prevention measures have been instituted. Side Rails Up X 2 Frequent Obs/Assesments occuring As available Patient and Family Educated on Fall Prevention Program and strategies. Assessment: 15:45 General: Appears in no apparent distress. Behavior is calm. Pain: Denies pain. Neuro: hb Level of Consciousness is awake, alert, obeys commands, Oriented to person, place, time. Cardiovascular: Patient's skin is warm and dry. Rhythm is regular. Respiratory: Respiratory effort is even, unlabored, Respiratory pattern is regular, symmetrical. GI: Abdomen is obese, Reports nausea, vomiting. : No signs and/or symptoms were reported regarding the genitourinary system. EENT: No signs and/or symptoms were reported regarding the EENT system. Derm: Skin is pink, warm \T\ dry. Musculoskeletal: Reports generalized weakness. 17:12 Reassessment: Patient appears in no apparent distress at this time. Patient and/or hb family updated on plan of care and expected duration. Pain level reassessed. Patient is alert, oriented x 3, equal unlabored respirations, skin warm/dry/pink. 17:32 Reassessment: Pt to CT. hb 17:55 Reassessment: Pt returned from CT. hb 18:40 Reassessment: Patient appears in no apparent distress at this time. Patient and/or hb family updated on plan of care and expected duration. Pain level reassessed. Patient is alert, oriented x 3, equal unlabored respirations, skin warm/dry/pink. 20:22 Reassessment: German [id number]. jb4 20:30 General: Appears in no apparent distress. Behavior is calm, cooperative. Pain: Denies ea pain. Neuro: Level of Consciousness is awake, alert, obeys commands, Oriented to person, place, time. Respiratory: Respiratory effort is even, unlabored, Respiratory pattern is regular, symmetrical. Derm: Skin is pink, warm \T\ dry. Vital Signs: 15:38 BP 149 / 74; Pulse 103; Resp 20; Temp 97.7; Pulse Ox 91% on R/A; Pain 0/10; hb 17:00 BP 119 / 63; Pulse 84; Resp 17; Pulse Ox 93% on R/A; hb 18:30 BP 116 / 56; Pulse 92; Resp 19; Pulse Ox 93% on R/A; hb ED Course: 15:38 Patient arrived in ED. hb 15:39 Triage completed. hb 15:40 Gigi Mortensen PA is PHCP. cp 15:40 Gigi Goss MD is Attending Physician. cp 15:41 Arm band placed on. hb 15:55 XRAY Chest (1 view) In Process Unspecified. EDMS 16:42 Inserted saline lock: 22 gauge in left antecubital area, using aseptic technique. hb 17:11 Chaya Knowles, RN is Primary Nurse. hb 17:12 Patient has correct armband on for positive identification. Bed in low position. Call hb light in reach. Side rails up X2. 17:12 Obregon cath inserted, using sterile technique, 16 Fr., by ED staff, balloon inflated, to hb gravity drainage. 17:38 CT Head Brain wo Cont In Process Unspecified. EDMS 18:31 Merlin Aponte is Hospitalizing Provider. cp 19:15 Primary Nurse role handed off by Chaya Knowles RN eb 22:17 No provider procedures requiring assistance completed. Patient admitted, IV remains in ea place. 22:20 Sharonda Santana is Primary Nurse. kg 12/15 08:28 Primary Nurse role handed off by Sharonda Santana Administered Medications: 12/14 16:30 Drug: Zofran (Ondansetron) 4 mg Route: IVP; Site: left antecubital; hb 17:30 Drug: Lasix (furosemide) 20 mg Route: IVP; Site: left antecubital; hb 12/15 00:00 Drug: SOLU-Medrol (methylPrednisoLONE) 80 mg {Note: Verbal order received from ZABRINA Cabral.} Route: IVP; Site: left forearm; Outcome: 12/14 18:32 Decision to Hospitalize by Provider. cp 22:17 Admitted to ER Hold. Please see [facility] for further documentation. ea 22:17 Condition: stable 22:17 Instructed on the need for admit. 12/17 17:44 Patient left the ED. aa5 Signatures: Dispatcher [employer] EDMS Chelle Clemente RN RN aa5 Gigi Mortensen PA PA cp Baxter, Heather, Joe Vidales RN, RN RN jb4 Antunez, Elena, RN RN ea Botello, Elizabeth eb Graham, Kristen kg Corrections: (The following items were deleted from the chart) 12/14 15:42 15:38 BP 149 / 74; Pulse 103bpm; Resp 20bpm; Pulse Ox 93% RA; Temp 97.7F; Pain 0/10; hb hb
[2020-12-14 18:59] LABS: Urine Blood Trace-lysed (Negative); Urine Glucose Negative (Negative); Urine Protein Negative (Negative); Urine Specific Gravity 1.015 (1.005-1.030); Urine pH 5.5 (5.0-7.0)
[2020-12-14 20:03] LABS: Ferritin 1101.7 ng/mL (8-388)
[2020-12-14 20:18] LABS: Urine Amorphous Sediment 1+ /HPF (NONE SEEN); Urine Bacteria <20 /HPF (<20); Urine Mucus SLIGHT /HPF (NONE SEEN); Urine RBC <5 /HPF (NONE SEEN)
[2020-12-14] MEDS ORDERED: MELATONIN 5 MG TABLET PO PRN (21:20)
[2020-12-14] MEDS ORDERED: ONDANSETRON 4 MG/2 ML VIAL IV PRN (21:20)
[2020-12-14] MEDS ORDERED: MORPHINE 2 MG/ML SYR IV PRN (21:20)
[2020-12-14] MEDS ORDERED: ALBUTEROL 2.5 MG/3 ML NEB SOL NEB PRN (21:20)
[2020-12-14] MEDS ORDERED: ACETAMINOPHEN 500 MG TAB PO PRN (21:20)
[2020-12-14] MEDS: INSULIN -REGULAR HUMAN 50 UNIT/0.5 ML ML SQ SCH (21:20)
--- NOTE | 2020-12-14 21:27 | P.HP ---
Certification for Inpatient Patient admitted to: Inpatient With expected LOS: >2 Midnights Patient will require the following post-hospital care: None Practitioner: I am a practitioner with admitting privileges, knowledge of patient current condition, hospital course, and medical plan of care. Services: Services provided to patient in accordance with Admission requirements found in Title 42 Section 412.3 of the Code of Federal Regulations Patient History Date of Service: 12/14/20 Primary Care Provider: Sweta Reason for admission: covid pneumonia History of Present Illness: Ms. Harrell is a 79 yo F with history of CHF, HTN, HLD, hypothyroidism and blood clots here today for 3 weeks of cough productive of white sputum and weakness. She was found to be COVID+ today. She reports nausea, vomiting, and diarrhea. She has been unable to keep food or liquids down. Denies night sweats, chills, SOB, COUCH, wheezing, pleuritic pain, leg pain and edema. She says she has not taken her medication for the past few weeks due to weakness and fatigue. Found to be hypoxic to 91%. CXR shows mild to moderate bilateral pulmonary opacities n oted which may represent pulmonary edema or infection and the heart is ULN in size. D dimer 7099. Ferritin 1101. CRP 146. BUN 27, Cr 1.39, GFR 37, Glu 132. urine dipstick 1+ ketones, trace blood. Allergies allopurinol Adverse Reaction (Severe, Uncoded 09/12/19 05:03) kidney problem Home Medications: Ranitidine [Zantac*] 150 mg PO BID 11/29/18 Atorvastatin Calcium [Lipitor] 40 mg PO BEDTIME #30 tab 02/03/19 Furosemide [Lasix*] 20 mg PO BIDL #60 tab 02/03/19 Potassium Chloride [Klor-Con 10] 10 meq PO DAILY #30 tablet.er 02/03/19 Apixaban [Eliquis] 5 mg PO SEECOM #70 tablet 09/12/19 - Past Medical/Surgical History Diabetic: No -: Hiatal Hernia -: CHF -: history of DVT-left leg -: gout -: HTN -: HLD -: hypothyroidism -: Knee Replacement-left -: Tubal ligation -: cholecystectomy -: cataracts -: appendectomy -: tonsillectomy -: knee surgery - Family History Mother -: Heart disease - Social History Smoking Status: Never smoker Alcohol use: Yes CD- Drugs: No Caffeine use: Yes Place of Residence: Home Review of Systems General: Weakness, Malaise, As per HPI Eyes: Unremarkable ENT: Unremarkable Respiratory: Cough, As per HPI Cardiovascular: Unremarkable Gastrointestinal: Nausea, Vomiting, Diarrhea, As per HPI Genitourinary: Unremarkable Musculoskeletal: Unremarkable Integumentary: Unremarkable Neurological: Unremarkable Lymphatics: Unremarkable Physical Examination - Physical Exam General: Alert, In no apparent distress, Oriented x3, Cooperative, Obese HEENT: Atraumatic, Normocephalic, PERRLA, Mucous membr. moist/pink, EOMI, Sclerae nonicteric Neck: Supple, 2+ carotid pulse no bruit, JVD not distended, No Thyromegaly, No LAD Respiratory: Diminished Cardiovascular: No edema, Normal pulses, Regular rate/rhythm, Normal S1 S2, No gallops, No rubs, No murmurs Capillary refill: <2 Seconds Gastrointestinal: Normal bowel sounds, Soft and benign, Non-distended, No ascites, No tenderness, No masses, No rebound, No guarding Musculoskeletal: No clubbing, No swelling, No contractures, No erythema, No tenderness, No warmth Integumentary: No rashes, No breakdown, No significant lesion, No tenderness/swelling, No erythema, No warmth, No cyanosis Neurological: Normal speech, Normal strength at 5/5 x4 extr, Normal tone, Sensation intact, Cranial nerves 3-12 intact, Normal affect Lymphatics: No axilla or inguinal lymphadenopathy Urinary: Obregon catheter - Studies Laboratory Data (last 24 hrs) 12/14/20 16:00: PT 12.2, INR 1.06 12/14/20 16:00: WBC 8.80, Hgb 13.4, Hct 39.9, Plt Count 236 12/14/20 16:00: Sodium 145, Potassium 4.4, BUN 27 H, Creatinine 1.39 H, Glucose 132 H, Magnesium 2.2, Total Bilirubin 0.8, AST 23, ALT 23, Alkaline Phosphatase 65 Assessment and Plan - Problems (Diagnosis) (1) HTN (hypertension) Current Visit: Yes Status: Chronic Qualifiers: Hypertension type: essential hypertension Qualified Code(s): I10 - Essential (primary) hypertension (2) HLD (hyperlipidemia) Current Visit: Yes Status: Chronic Qualifiers: Hyperlipidemia type: unspecified Qualified Code(s): E78.5 - Hyperlipidemia, unspecified (3) Pneumonia due to COVID-19 virus Current Visit: Yes Status: Acute (4) CHF (congestive heart failure) Onset Date: 07/29/18 Current Visit: No Status: Chronic Qualifiers: Heart failure type: unspecified Heart failure chronicity: unspecified Qualified Code(s): I50.9 - Heart failure, unspecified (5) History of DVT (deep vein thrombosis) Current Visit: No Status: Chronic - Plan pulm consulted, respiratory consulted room air sats daily, sats for home O2, O2 titration covid supplements, ivermectin, IV steroids daily CRP and ferritin eliquis 10 BID for DVT/PE tx (previously on 5mg BID but has not been taking for a few weeks, Ddimer of 7099, due to kidney function will avoid CTPE and give full dose anticoagulation, denies SOB, COUCH, leg pain, leg edema) reconcile and continue home medications continue to monitor BP Discharge Plan: Home Plan to discharge in: 72 Hours - Advance Directives Does patient have a Living Will: No Does patient have a Durable POA for Healthcare: No - Code Status/Comfort Care Code Status Assessed: Yes (full code) Critical Care: No Time Spent Managing Pts Care (In Minutes): 70
[2020-12-14] MEDS: ASCORBIC ACID 500 MG TABLET PO SCH (23:00)
[2020-12-14] MEDS: FAMOTIDINE 20 MG TAB PO SCH (23:00)
[2020-12-14] MEDS: APIXABAN 5 MG TABLET PO SCH (23:00)
[2020-12-14] MEDS ORDERED: ASCORBIC ACID 500 MG TABLET ONE (23:27)
[2020-12-14] MEDS ORDERED: METHYLPREDNISOLONE 40 MG INJ ONE (23:27)
[2020-12-14] MEDS ORDERED: FAMOTIDINE 20 MG TAB ONE (23:27)
[2020-12-15] MEDS: METHYLPREDNISOLONE 40 MG INJ IV SCH ×3 (01:00→20:03)
[2020-12-15 05:29] LABS: Absolute Lymphocytes (CBC) 0.5 K/uL (0.7-4.9); Basophils % 0.3 % (0-1.3); Hematocrit 36.2 % (36.0-45.0); MPV 7.8 fL (7.6-11.3); RBC Red Blood Cell Count 3.99 M/uL (3.86-4.86)
[2020-12-15 05:33] VITALS: BMI 33.6
[2020-12-15 06:08] LABS: Urine Appearance HAZY (Clear); Urine Color YELLOW (Yellow); Urine Glucose NEGATIVE (Negative)
[2020-12-15 06:09] LABS: Urine Blood 1+ (Negative); Urine Protein 2+ (Negative); Urine pH 5.5 (5.0-7.0)
[2020-12-15 06:13] LABS: Urine Bilirubin NEGATIVE (Negataive); Urine Microscopic Reflex ORDER UMIC
[2020-12-15 06:17] LABS: Urine Bacteria 20-50 /HPF (<20); Urine Crystals Unidentified FEW (NONE SEEN); Urine RBC <5 /HPF (NONE SEEN)
[2020-12-15 06:42] LABS: Albumin 2.5 g/dL (3.4-5.0); Bilirubin Total 0.6 mg/dL (0.2-1.0); Ferritin 1004.1 ng/mL (8-388); Magnesium 2.2 mg/dL (1.8-2.4); Phosphorus 3.1 mg/dL (2.5-4.9); Potassium 4.2 mmol/L (3.5-5.1); Protein, Total 6.4 g/dL (6.4-8.2); Thyroid Stimulating Hormone 0.072 uIU/mL (0.360-3.740)
[2020-12-15] MEDS: INSULIN -REGULAR HUMAN 50 UNIT/0.5 ML ML SQ SCH ×4 (07:30→20:03)
[2020-12-15] MEDS: ASCORBIC ACID 500 MG TABLET PO SCH ×4 (09:08→20:03)
[2020-12-15] MEDS: ZINC SULFATE 220 MG CAP PO SCH (09:08)
[2020-12-15] MEDS: APIXABAN 5 MG TABLET PO SCH ×2 (09:08→20:02)
[2020-12-15] MEDS: THIAMINE HCL 100 MG TABLET PO SCH (09:08)
[2020-12-15] MEDS: FAMOTIDINE 20 MG TAB PO SCH ×2 (09:08→20:02)
[2020-12-15] MEDS: VITAMIN D 1000 UNIT TAB PO SCH (09:08)
[2020-12-15] MEDS ORDERED: APIXABAN 5 MG TABLET ONE ×2 (09:21→20:15)
[2020-12-15] MEDS ORDERED: ZINC SULFATE 220 MG CAP ONE (09:22)
[2020-12-15] MEDS ORDERED: VITAMIN D 1000 UNIT TAB ONE (09:23)
[2020-12-15] MEDS ORDERED: METHYLPREDNISOLONE 40 MG INJ ONE ×2 (09:23→20:14)
[2020-12-15] MEDS ORDERED: THIAMINE HCL 100 MG TABLET ONE (09:23)
[2020-12-15] MEDS ORDERED: ASCORBIC ACID 500 MG TABLET ONE ×4 (09:23→20:15)
[2020-12-15] MEDS ORDERED: FAMOTIDINE 20 MG TAB ONE ×2 (09:24→20:15)
--- NOTE | 2020-12-15 10:38 | EKG ---
Test Date: 2020-12-14 Test Time: 15:58:06 Seed Sales Manager: HB MEASUREMENT RESULTS: Intervals: Rate: 90 WV: 162 QRSD: 68 QT: 378 QTc: 462 [place]: P: 93 WV: 162 QRS: 46 T: 69 INTERPRETIVE STATEMENTS: Normal sinus rhythm Normal ECG Compared to ECG 09/26/2020 10:19:24 ST (T wave) deviation no longer present Electronically Signed On 12-15-20 10:36:33 CDT by Mejia Mari
--- NOTE | 2020-12-15 11:12 | P.CNS ---
Date of Consult: 12/15/20 Primary Care Provider: Sweta Chief Complaint: covid pneumonia History of Present Illness: Patient is 79 years of age multiple medical problems admitted with a 3 week history of productive cough weakness was found to be positive for echeverria virus reports nausea vomiting and diarrhea wing much better patient also had a echeverria virus pneumonia denies any shortness of breath Allergies allopurinol Adverse Reaction (Severe, Uncoded 12/15/20 00:19) kidney problem Home Medications: Ranitidine [Zantac*] 150 mg PO BID 11/29/18 Potassium Chloride [Klor-Con 10] 10 meq PO DAILY #30 tablet.er 02/03/19 Apixaban [Eliquis] 5 mg PO BID 12/15/20 Atorvastatin Calcium [Lipitor] 20 mg PO BEDTIME 12/15/20 Famotidine 20 mg PO BID 12/15/20 Furosemide [Lasix*] 40 mg PO T,TH,S 12/15/20 Levothyroxine [Synthroid*] 0.1 mg PO DAILY 12/15/20 Lisinopril [Zestril] 20 mg PO DAILY 12/15/20 - Past Medical/Surgical History Diabetic: No -: Hiatal Hernia -: CHF -: history of DVT-left leg -: gout -: HTN -: HLD -: hypothyroidism -: Knee Replacement-left -: Tubal ligation -: cholecystectomy -: cataracts -: appendectomy -: tonsillectomy -: knee surgery - Family History Mother Medical History: Heart disease - Social History Alcohol use: Yes CD- Drugs: No Caffeine use: Yes Place of Residence: Home Review of Systems General: Weakness Respiratory: Shortness of Breath Gastrointestinal: Nausea Physical Examination Temp Pulse Resp BP Pulse Ox 98.6 F 67 17 118/66 62 L 12/15/20 04:00 12/15/20 04:00 12/15/20 04:00 12/15/20 04:00 12/15/20 04:00 Laboratory Data (last 24 hrs) 12/14/20 16:00: PT 12.2, INR 1.06 12/14/20 16:00: WBC 8.80, Hgb 13.4, Hct 39.9, Plt Count 236 12/14/20 16:00: Sodium 145, Potassium 4.4, BUN 27 H, Creatinine 1.39 H, Glucose 132 H, Magnesium 2.2, Total Bilirubin 0.8, AST 23, ALT 23, Alkaline Phosphatase 65 - Problems (1) Pneumonia due to COVID-19 virus Current Visit: Yes Status: Acute Plan: Patient is 79 years of age admitted with pneumonia due to echeverria virus she also has GI symptoms in better vital signs stable oxygenation satisfactory chest x- ray shows some interstitial changes chemistries reviewed CONTINUE WITH PRESENT DOSES OF STEROIDS IVERMECTIN START ON D5 WATER PATIENT IS MILDLY HYPERNATREMIC SUSPECT IS FROM THE DIARRHEA Dc [place] catheter possible discharge tomorrow
[2020-12-15] MEDS: D5W 1,000 ML IV SCH ×2 (12:20→23:29)
[2020-12-15] MEDS ORDERED: D5W 1,000 ML IV ONE (12:39)
[2020-12-15] MEDS: BENZONATATE 100 MG CAP PO PRN ×2 (13:16→19:16)
[2020-12-15] MEDS ORDERED: BENZONATATE 100 MG CAP PO ONE ×2 (13:35→19:09)
--- NOTE | 2020-12-15 13:35 | P.PN ---
Subjective Date of Service: 12/15/20 Primary Care Provider: Sweta Chief Complaint: covid pneumonia Patient denies shortness of breath. She denies any complain today. She is maintained on 2 L of oxygen by nasal cannula. Physical Examination - Vital Signs Temperature: 97.4 F Blood Pressure: 134/95 Pulse: 105 Respirations: 18 Pulse Ox (%): 97 - Physical Exam General: Alert, In no apparent distress HEENT: Mucous membr. moist/pink Neck: JVD not distended Respiratory: Other (Nonlabored breathing) Cardiovascular: No edema, Regular rate/rhythm, Normal S1 S2 Gastrointestinal: Normal bowel sounds, Soft and benign, Non-distended, No tenderness Musculoskeletal: No clubbing, No swelling Integumentary: No rashes Neurological: Other (No focal motor deficit) - Studies Laboratory Data (last 24 hrs) 12/14/20 16:00: PT 12.2, INR 1.06 12/14/20 16:00: WBC 8.80, Hgb 13.4, Hct 39.9, Plt Count 236 12/14/20 16:00: Sodium 145, Potassium 4.4, BUN 27 H, Creatinine 1.39 H, Glucose 132 H, Magnesium 2.2, Total Bilirubin 0.8, AST 23, ALT 23, Alkaline Phosphatase 65 Assessment And Plan - Current Problems (Diagnosis) (1) Pneumonia due to COVID-19 virus Current Visit: Yes Status: Acute (2) Acute renal injury Current Visit: No Status: Acute (3) HTN (hypertension) Current Visit: Yes Status: Chronic Qualifiers: Hypertension type: essential hypertension Qualified Code(s): I10 - Essential (primary) hypertension (4) Left leg DVT Onset Date: 07/29/18 Current Visit: No Status: Acute (5) Hypernatremia Current Visit: Yes Status: Acute - Plan Continues IV steroid, Eliquis, Ivermectin. Acute renal failure resolved. IV D5W started for hypernatremia. Monitor inflammatory markers. Home oxygen evaluation. Monitor BMP and CBC.
[2020-12-15] MEDS ORDERED: D5 0.9 NS 1,000 ML IV ONE (23:43)
[2020-12-16] MEDS ORDERED: D5W 1,000 ML IV ONE ×2 (02:47→12:12)
[2020-12-16 04:37] LABS: Absolute Lymphocytes (CBC) 0.7 K/uL (0.7-4.9); Basophils % 0.2 % (0-1.3); Hematocrit 36.3 % (36.0-45.0); Lymphocytes % 8.5 % (15.3-44.8); MPV 8.8 fL (7.6-11.3); RBC Red Blood Cell Count 4.05 M/uL (3.86-4.86)
[2020-12-16] MEDS: BENZONATATE 100 MG CAP PO PRN ×2 (05:21→16:43)
[2020-12-16] MEDS ORDERED: BENZONATATE 100 MG CAP PO ONE ×2 (05:39→17:02)
[2020-12-16 06:30] LABS: C-Reactive Protein 58.2 mg/L (<3.00); Potassium 3.6 mmol/L (3.5-5.1)
[2020-12-16 06:57] LABS: Ferritin 1080.8 ng/mL (8-388)
[2020-12-16] MEDS ORDERED: ZINC SULFATE 220 MG CAP ONE (08:08)
[2020-12-16] MEDS ORDERED: VITAMIN D 1000 UNIT TAB ONE (08:08)
[2020-12-16] MEDS ORDERED: APIXABAN 5 MG TABLET ONE ×2 (08:08→20:13)
[2020-12-16] MEDS ORDERED: THIAMINE HCL 100 MG TABLET ONE (08:08)
[2020-12-16] MEDS ORDERED: ASCORBIC ACID 500 MG TABLET ONE ×4 (08:09→20:13)
[2020-12-16] MEDS ORDERED: FAMOTIDINE 20 MG/2 ML VIAL IV ONE (08:09)
[2020-12-16] MEDS ORDERED: INSULIN -REGULAR HUMAN 50 UNIT/0.5 ML ML ONE ×3 (08:09→20:41)
[2020-12-16] MEDS: APIXABAN 5 MG TABLET PO SCH ×2 (08:34→20:02)
[2020-12-16] MEDS: INSULIN -REGULAR HUMAN 50 UNIT/0.5 ML ML SQ SCH ×4 (08:34→20:41)
[2020-12-16] MEDS: ASCORBIC ACID 500 MG TABLET PO SCH ×4 (08:35→20:03)
[2020-12-16] MEDS: VITAMIN D 1000 UNIT TAB PO SCH (08:35)
[2020-12-16] MEDS: ZINC SULFATE 220 MG CAP PO SCH (08:35)
[2020-12-16] MEDS: IVERMECTIN 3 MG TABLET PO SCH (08:35)
[2020-12-16] MEDS: THIAMINE HCL 100 MG TABLET PO SCH (08:35)
[2020-12-16] MEDS: FAMOTIDINE 20 MG TAB PO SCH ×2 (08:38→20:02)
[2020-12-16] MEDS: METHYLPREDNISOLONE 40 MG INJ IV SCH ×2 (08:56→20:03)
[2020-12-16] MEDS ORDERED: FAMOTIDINE 20 MG TAB ONE ×2 (08:57→20:13)
[2020-12-16] MEDS ORDERED: POTASSIUM 25 MEQ EFFERV TAB ONE (08:57)
[2020-12-16] MEDS ORDERED: POTASSIUM 25 MEQ EFFERV TAB PO ONE (09:00)
[2020-12-16] MEDS ORDERED: METHYLPREDNISOLONE 40 MG INJ ONE ×2 (09:11→20:13)
[2020-12-16] MEDS: D5W 1,000 ML IV SCH (11:53)
--- NOTE | 2020-12-16 15:03 | P.PN ---
Subjective Date of Service: 12/16/20 Primary Care Provider: Sweta Chief Complaint: covid pneumonia Patient denies shortness of breath. She reports nonproductive cough. She also reports generalized weakness. She is maintained on 2 L of oxygen by nasal cannula. Physical Examination - Vital Signs Temperature: 97.2 F Blood Pressure: 115/75 Pulse: 110 Respirations: 20 Pulse Ox (%): 95 - Physical Exam General: Alert, In no apparent distress HEENT: Other (Oxygen by nasal cannula) Neck: JVD not distended Respiratory: Other (No labored breathing) Cardiovascular: No edema, Regular rate/rhythm, Normal S1 S2 Gastrointestinal: Soft and benign, Non-distended Musculoskeletal: No swelling Integumentary: No rashes Neurological: Normal strength at 5/5 x4 extr Assessment And Plan - Current Problems (Diagnosis) (1) Pneumonia due to COVID-19 virus Current Visit: Yes Status: Acute (2) Acute renal injury Current Visit: No Status: Acute (3) HTN (hypertension) Current Visit: Yes Status: Chronic Qualifiers: Hypertension type: essential hypertension Qualified Code(s): I10 - Essential (primary) hypertension (4) Left leg DVT Onset Date: 07/29/18 Current Visit: No Status: Acute (5) Hypernatremia Current Visit: Yes Status: Acute - Plan Continues IV steroid, Eliquis, Ivermectin. Cough suppressants. Vitamin-D, vitamin-C and zinc supplementation. Pulmonary input appreciated. Acute renal failure resolved. Hypernatremia resolved. Discontinue IV D5W. Monitor inflammatory markers. PT to evaluate given generalized weakness. Home oxygen evaluation. Monitor BMP and CBC.
[2020-12-16] MEDS ORDERED: ATORVASTATIN 20 MG TAB ONE (20:12)
[2020-12-16] MEDS ORDERED: GUAIFENESIN/CODEINE 5ML UCUP PO PRN (20:39)
[2020-12-16] MEDS ORDERED: FUROSEMIDE 20 MG/ 2ML VIAL IV ONE (20:40)
[2020-12-16] MEDS ORDERED: ATORVASTATIN 40 MG TAB PO SCH (21:00)
[2020-12-16] MEDS: GUAIFENESIN/DM 5 ML UCUP PO PRN (21:41)
[2020-12-16] MEDS ORDERED: GUAIFENESIN/DM 5 ML UCUP ONE (22:00)
[2020-12-16] MEDS ORDERED: METOPROLOL TAR 25 MG TAB PO ONE (22:01)
[2020-12-16] MEDS ORDERED: METOPROLOL TAR 25 MG TAB ONE (22:33)
[2020-12-17 06:06] LABS: Absolute Lymphocytes (CBC) 0.6 K/uL (0.7-4.9); Basophils % 0.1 % (0-1.3); Hematocrit 37.9 % (36.0-45.0); Lymphocytes % 5.5 % (15.3-44.8); MPV 8.4 fL (7.6-11.3); RBC Red Blood Cell Count 4.28 M/uL (3.86-4.86)
[2020-12-17 06:42] LABS: C-Reactive Protein 22.4 mg/L (<3.00); Potassium 3.9 mmol/L (3.5-5.1)
[2020-12-17] MEDS ORDERED: INSULIN -REGULAR HUMAN 50 UNIT/0.5 ML ML ONE ×2 (07:35→16:16)
[2020-12-17] MEDS ORDERED: THIAMINE HCL 100 MG TABLET ONE (07:37)
[2020-12-17] MEDS ORDERED: ZINC SULFATE 220 MG CAP ONE (07:37)
[2020-12-17] MEDS ORDERED: APIXABAN 5 MG TABLET ONE (07:37)
[2020-12-17] MEDS ORDERED: VITAMIN D 1000 UNIT TAB ONE (07:38)
[2020-12-17] MEDS ORDERED: METHYLPREDNISOLONE 40 MG INJ ONE (07:38)
[2020-12-17] MEDS ORDERED: ASCORBIC ACID 500 MG TABLET ONE ×3 (07:38→14:58)
[2020-12-17] MEDS ORDERED: lisinopriL 20 MG TAB ONE (07:38)
[2020-12-17] MEDS ORDERED: POTASSIUM CL SA 10 MEQ TAB PO ONE (07:38)
[2020-12-17] MEDS ORDERED: FAMOTIDINE 20 MG TAB ONE (07:39)
[2020-12-17] MEDS: METHYLPREDNISOLONE 40 MG INJ IV SCH ×2 (07:55→20:35)
[2020-12-17] MEDS: FAMOTIDINE 20 MG TAB PO SCH ×2 (07:55→20:36)
[2020-12-17] MEDS: INSULIN -REGULAR HUMAN 50 UNIT/0.5 ML ML SQ SCH ×4 (07:55→20:37)
[2020-12-17] MEDS: lisinopriL 20 MG TAB PO SCH (07:55)
[2020-12-17] MEDS: ZINC SULFATE 220 MG CAP PO SCH (07:56)
[2020-12-17] MEDS: VITAMIN D 1000 UNIT TAB PO SCH (07:56)
[2020-12-17] MEDS: APIXABAN 5 MG TABLET PO SCH ×2 (07:56→20:36)
[2020-12-17] MEDS: THIAMINE HCL 100 MG TABLET PO SCH (07:56)
[2020-12-17] MEDS: ASCORBIC ACID 500 MG TABLET PO SCH ×4 (07:56→20:36)
[2020-12-17] MEDS: POTASSIUM CL SA 10 MEQ TAB PO SCH (07:56)
[2020-12-17 08:39] LABS: Blood Morphology Comment NOT SEEN (NOT SEEN); Platelet Estimate ADEQ; White Blood Cell Scan OK (OK)
[2020-12-17] MEDS ORDERED: METOPROLOL TARTRATE 5 MG/5 ML INJ IV STA (18:56)
--- NOTE | 2020-12-17 19:09 | P.PN ---
Subjective Date of Service: 12/17/20 Primary Care Provider: Sweta Chief Complaint: covid pneumonia Patient has no new complain She is maintained on 2 L of oxygen by nasal cannula. Physical Examination - Vital Signs Temperature: 98.2 F Blood Pressure: 115/69 Pulse: 134 Respirations: 21 Pulse Ox (%): 96 - Physical Exam General: Alert, In no apparent distress HEENT: Other (Oxygen by nasal canula) Respiratory: Other (Nonlabored breathing) Cardiovascular: No edema, Normal S1 S2, Other (Tachycardia) Gastrointestinal: Normal bowel sounds, Soft and benign, Non-distended, No tenderness Musculoskeletal: No swelling Integumentary: No rashes Neurological: Normal strength at 5/5 x4 extr - Studies Microbiology Data (last 24 hrs): 12/14/20 04:14 Catheterized Urine [place] Count - Final <10,000 CFU/ML. 12/14/20 04:14 Catheterized Urine - Final Klebsiella Pneumoniae Assessment And Plan - Current Problems (Diagnosis) (1) Pneumonia due to COVID-19 virus Current Visit: Yes Status: Acute (2) Acute renal injury Current Visit: No Status: Acute (3) HTN (hypertension) Current Visit: Yes Status: Chronic Qualifiers: Hypertension type: essential hypertension Qualified Code(s): I10 - Essential (primary) hypertension (4) Left leg DVT Onset Date: 07/29/18 Current Visit: No Status: Acute (5) Hypernatremia Current Visit: Yes Status: Acute - Plan Continue IV steroid, Eliquis, Ivermectin. Cough suppressants. Vitamin-D, vitamin-C and zinc supplementation. Pulmonary is following. Acute renal failure resolved. Hypernatremia resolved. Monitor inflammatory markers. Patient with poor functional performance, very weak, and will need physical therapy and SNF placement. Monitor BMP and CBC.
[2020-12-17] MEDS: METOPROLOL TARTRATE 5 MG/5 ML INJ IV SCH ×2 (20:00→20:05)
[2020-12-17 20:31] LABS: Phosphorus 1.5 mg/dL (2.5-4.9)
[2020-12-17] MEDS: ATORVASTATIN 20 MG TAB PO SCH (20:36)
[2020-12-17] MEDS: NYSTATIN PWDR 100000 UNIT/GM TOP SCH (20:38)
[2020-12-18 04:54] LABS: Absolute Lymphocytes (CBC) 0.5 K/uL (0.7-4.9); Basophils % 0.2 % (0-1.3); Hematocrit 36.4 % (36.0-45.0); Lymphocytes % 4.8 % (15.3-44.8); MPV 8.8 fL (7.6-11.3); RBC Red Blood Cell Count 4.15 M/uL (3.86-4.86)
[2020-12-18 05:37] LABS: Albumin 2.3 g/dL (3.4-5.0); Bilirubin Total 0.6 mg/dL (0.2-1.0); C-Reactive Protein 11.4 mg/L (<3.00); Ferritin 824.6 ng/mL (8-388); Potassium 4.1 mmol/L (3.5-5.1); Protein, Total 5.3 g/dL (6.4-8.2)
[2020-12-18 06:48] LABS: Magnesium 2.2 mg/dL (1.8-2.4); Phosphorus 1.9 mg/dL (2.5-4.9)
[2020-12-18] MEDS: INSULIN -REGULAR HUMAN 50 UNIT/0.5 ML ML SQ SCH ×4 (07:30→20:57)
[2020-12-18] MEDS ORDERED: METOPROLOL TARTRATE 5 MG/5 ML INJ IV STA (07:35)
[2020-12-18] MEDS ORDERED: FUROSEMIDE 40 MG TABLET PO SCH (08:00)
[2020-12-18] MEDS: BENZONATATE 100 MG CAP PO PRN (08:36)
[2020-12-18] MEDS: THIAMINE HCL 100 MG TABLET PO SCH (08:37)
[2020-12-18] MEDS: ASCORBIC ACID 500 MG TABLET PO SCH ×4 (08:37→20:57)
[2020-12-18] MEDS: VITAMIN D 1000 UNIT TAB PO SCH (08:37)
[2020-12-18] MEDS: ZINC SULFATE 220 MG CAP PO SCH (08:37)
[2020-12-18] MEDS: POTASSIUM CL SA 10 MEQ TAB PO SCH (08:37)
[2020-12-18] MEDS: METHYLPREDNISOLONE 40 MG INJ IV SCH ×2 (08:37→20:56)
[2020-12-18] MEDS: APIXABAN 5 MG TABLET PO SCH ×2 (08:37→20:56)
[2020-12-18] MEDS: FAMOTIDINE 20 MG TAB PO SCH ×2 (08:37→20:56)
[2020-12-18] MEDS: NYSTATIN PWDR 100000 UNIT/GM TOP SCH ×2 (08:40→20:55)
[2020-12-18] MEDS: lisinopriL 20 MG TAB PO SCH (08:42)
[2020-12-18] MEDS: GUAIFENESIN/DM 5 ML UCUP PO PRN ×2 (08:42→17:05)
[2020-12-18] MEDS ORDERED: METOPROLOL TAR 25 MG TAB PO SCH (09:30)
--- NOTE | 2020-12-18 09:37 | P.PN ---
Subjective Date of Service: 12/18/20 Primary Care Provider: Sweta Chief Complaint: covid pneumonia Subjective: Improving (pt reports breathing more comfortably this morning, feels better, but continues with weakness. overnight patient found to be in afib with RVR, responded to IV lopressor. Pt denied any h/o afib, denies chest pain, denies palpitations) Review of Systems 10-point ROS is otherwise unremarkable Physical Examination - Vital Signs Temperature: 96.9 F Blood Pressure: 133/67 Pulse: 113 Respirations: 14 Pulse Ox (%): 96 - Studies Microbiology Data (last 24 hrs): 12/14/20 04:14 Catheterized Urine [place] Count - Final <10,000 CFU/ML. 12/14/20 04:14 Catheterized Urine - Final Klebsiella Pneumoniae Assessment & Plan Physician Review Additional Text: Physical Exam General: Alert, In no apparent distress HEENT: normal conjunctiva, sclera anicteric Respiratory: nonlabored respiratiosn on room air Cardiovascular: irregularly irregular rhythm Gastrointestinal: Soft and benign, Non-distended, No tenderness Musculoskeletal: No swelling Integumentary: No rashes Problem List Acute hypoxemic respiratory failure secondary to pneumonia due to COVID-19 virus EV HTN LLE DVT Hypernatremia Atrial fibrillation with RVR Continue IV steroid, Eliquis, Vitamin-D, vitamin-C and zinc supplementation. Cough suppressants. s/p ivermectin decrease IV solumedrol from 80 BID to 40 BID Pulmonary is following. Acute renal failure resolved with gentle IVF replacement Hypernatremia resolved as well high ferritin/crp - improving slightly Patient with poor functional performance, very weak, PT consulted May benefit from SNF, briefly discussed with patient this morning - she prefers home with son awaiting PT eval, will discuss with family as well Afib w/ RVR - pt denies history, responded to IV lopressor, will start PO 25mg BID, cardiology consutled. pt already on eliquis for h/o DVT, will obtain echo VTE: Eliquis Code: full Dispo: would benefit from SNF, awaiting PT eval, pt currently stated she would prefer to go home Time Spent Managing Pts Care (In Minutes): 35
[2020-12-18] MEDS: IVERMECTIN 3 MG TABLET PO SCH (11:20)
[2020-12-18] MEDS: POTASS/SODIUM PHOSPHATE 1 PKT POWD.PACK PO SCH ×3 (11:21→13:50)
[2020-12-18] MEDS: METOPROLOL TAR 50 MG TAB PO SCH (17:06)
--- NOTE | 2020-12-18 17:43 | EKG ---
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
[2020-12-18] MEDS: ATORVASTATIN 20 MG TAB PO SCH (20:56)
[2020-12-18] MEDS: AMOX/K CLAV 875 MG TAB PO SCH (20:57)
[2020-12-18] MEDS ORDERED: LORazepam 2 MG/ML VIAL ONE (23:26)
[2020-12-19] MEDS: METOPROLOL TAR 50 MG TAB PO SCH ×2 (05:38→18:22)
[2020-12-19 06:45] LABS: Ferritin 860.7 ng/mL (8-388); Magnesium 2.2 mg/dL (1.8-2.4); Phosphorus 2.3 mg/dL (2.5-4.9); Potassium 4.3 mmol/L (3.5-5.1)
[2020-12-19] MEDS: INSULIN -REGULAR HUMAN 50 UNIT/0.5 ML ML SQ SCH ×4 (07:30→21:00)
[2020-12-19] MEDS: GUAIFENESIN/DM 5 ML UCUP PO PRN ×2 (08:04→18:37)
[2020-12-19] MEDS: ZINC SULFATE 220 MG CAP PO SCH (08:05)
[2020-12-19] MEDS: METHYLPREDNISOLONE 40 MG INJ IV SCH ×2 (08:05→20:11)
[2020-12-19] MEDS: AMOX/K CLAV 875 MG TAB PO SCH ×2 (08:05→20:05)
[2020-12-19] MEDS: BENZONATATE 100 MG CAP PO PRN (08:05)
[2020-12-19] MEDS: POTASS/SODIUM PHOSPHATE 1 PKT POWD.PACK PO SCH ×3 (08:05→10:42)
[2020-12-19] MEDS: POTASSIUM CL SA 10 MEQ TAB PO SCH (08:05)
[2020-12-19] MEDS: FAMOTIDINE 20 MG TAB PO SCH ×2 (08:05→20:11)
[2020-12-19] MEDS: ASCORBIC ACID 500 MG TABLET PO SCH ×4 (08:06→20:11)
[2020-12-19] MEDS: VITAMIN D 1000 UNIT TAB PO SCH (08:06)
[2020-12-19] MEDS: NYSTATIN PWDR 100000 UNIT/GM TOP SCH ×2 (08:06→20:09)
[2020-12-19] MEDS: APIXABAN 5 MG TABLET PO SCH ×2 (08:06→20:05)
[2020-12-19] MEDS: THIAMINE HCL 100 MG TABLET PO SCH (08:06)
[2020-12-19] MEDS: lisinopriL 20 MG TAB PO SCH (08:06)
--- NOTE | 2020-12-19 08:06 | ECHO ---
HEIGHT: 5 ft 3 in WEIGHT: 190 lb 0 oz DATE OF STUDY: 12/18/[address]: Tj Guerrero MD 2-DIMENSIONAL: YES M.MODE: YES DOPPLER: YES COLOR FLOW: YES TDS: NO PORTABLE: YES DEFINITY: NO BUBBLE STUDY: NO DIAGNOSIS: NEW ATRIAL FIBRILLATION CARDIAC HISTORY: CATHERIZATION: SURGERY: PROSTHETIC VALVE: PACEMAKER: MEASUREMENTS (cm) DIASTOLIC (NORMALS) SYSTOLIC (NORMALS) IVSd 1.0 (0.6-1.2) LA Diam 2.7 (1.9-4.0) LVEF 68% LVIDd 3.3 (3.5-5.7) LVIDs 2.1 (2.0-3.5) %FS 37% LVPWd 0.8 (0.6-1.2) Ao Diam 2.6 (2.0-3.7) 2 DIMENSIONAL ASSESSMENT: RIGHT ATRIUM: NORMAL LEFT ATRIUM: NORMAL RIGHT VENTRICLE: NORMAL LEFT VENTRICLE: NORMAL TRICUSPID VALVE: NORMAL MITRAL VALVE: NORMAL PULMONIC VALVE: NORMAL AORTIC VALVE: NORMAL PERICARDIAL EFFUSION: NONE AORTIC ROOT: NORMAL LEFT VENTRICULAR WALL MOTION: NORMAL DOPPLER/COLOR FLOW: MILD TRICUSPID REGURGITATION. COMMENTS: NORMAL LEFT VENTRICULAR SIZE AND FUNCTION. NO WALL MOTION ABNORMALITY. NORMAL LEFT ATRIAL SIZE. NO THROMBUS. ATRIAL FIBRILLATION WITH RAPID VENTRICULAR RESPONSE. TECHNOLOGIST: Yelena LANDEROS
--- NOTE | 2020-12-19 10:50 | P.PN ---
Subjective Date of Service: 12/19/20 Primary Care Provider: Sweta Chief Complaint: covid pneumonia Subjective: No new changes (HR better controlled, remains in afib. denies chest pain / palpitations. breathing comfortably on room air. Has not gotten out of bed. feels weak. awaiting PT eval. States she does not want to go to senior care.) Review of Systems 10-point ROS is otherwise unremarkable Physical Examination - Vital Signs Temperature: 97.2 F Blood Pressure: 119/71 Pulse: 78 Respirations: 16 Pulse Ox (%): 93 Assessment & Plan Physician Review Additional Text: Physical Exam General: Alert, In no apparent distress HEENT: normal conjunctiva, sclera anicteric Respiratory: nonlabored respirations on room air Cardiovascular: irregularly irregular rhythm, HR: 80s Gastrointestinal: Soft , Non-distended, No tenderness Musculoskeletal: No swelling Integumentary: No rashes Problem List Acute hypoxemic respiratory failure secondary to pneumonia due to COVID-19 virus EV, resolved HTN LLE DVT Hypernatremia Atrial fibrillation with RVR UTI, cystitis Continue steroid, Eliquis, Vitamin-D, vitamin-C and zinc supplementation. Cough suppressants. s/p ivermectin Acute renal failure resolved with gentle IVF replacement. Hypernatremia resolved as well high ferritin/crp - improving slightly Patient with poor functional performance, very weak, PT consulted May benefit from SNF, discussed with patient and family today- refuse SNF/senior care awaiting PT eval cardiology consulted for afib, echo pending. metoprol increasedto 50mg BID, pt with better rate control. already on eliquis with h/o DVT urine grew klebsiella pneumoniae, pt unsure of symptoms, possibly increased frequency, empirically treated with augmentin bebeto reeys VTE: Eliquis Code: full Dispo: would likely benefit from SNF, awaiting PT eval, stabilization of heart rate, however pt and family do not want SNF, per nursing, patient is too weak to even just move in bed. anticipate discharge tomorrow Time Spent Managing Pts Care (In Minutes): 35
[2020-12-19] MEDS: ATORVASTATIN 20 MG TAB PO SCH (20:08)
[2020-12-20 04:17] VITALS: TEMP 97
[2020-12-20 05:52] LABS: Basophils % 0.2 % (0-1.3); Hematocrit 38.3 % (36.0-45.0); Lymphocytes % 5.6 % (15.3-44.8); MPV 9.2 fL (7.6-11.3); RBC Red Blood Cell Count 4.27 M/uL (3.86-4.86)
[2020-12-20] MEDS: METOPROLOL TAR 50 MG TAB PO SCH (05:55)
[2020-12-20 06:10] LABS: C-Reactive Protein 4.04 mg/L (<3.00); Ferritin 808.4 ng/mL (8-388); Phosphorus 3.5 mg/dL (2.5-4.9); Potassium 4.7 mmol/L (3.5-5.1)
[2020-12-20] MEDS ORDERED: METOPROLOL TAR 25 MG TAB PO ONE (07:00)
[2020-12-20 07:03] LABS: Blood Morphology Comment NOT SEEN (NOT SEEN); Platelet Estimate ADEQ; White Blood Cell Scan OK (OK)
[2020-12-20] MEDS: INSULIN -REGULAR HUMAN 50 UNIT/0.5 ML ML SQ SCH ×2 (07:30→11:30)
[2020-12-20] MEDS: VITAMIN D 1000 UNIT TAB PO SCH (08:09)
[2020-12-20] MEDS: ZINC SULFATE 220 MG CAP PO SCH (08:09)
[2020-12-20] MEDS: POTASSIUM CL SA 10 MEQ TAB PO SCH (08:10)
[2020-12-20] MEDS: THIAMINE HCL 100 MG TABLET PO SCH (08:10)
[2020-12-20] MEDS: FAMOTIDINE 20 MG TAB PO SCH (08:10)
[2020-12-20] MEDS: METHYLPREDNISOLONE 40 MG INJ IV SCH (08:10)
[2020-12-20] MEDS: ASCORBIC ACID 500 MG TABLET PO SCH ×2 (08:10→11:46)
[2020-12-20] MEDS: APIXABAN 5 MG TABLET PO SCH (08:10)
[2020-12-20] MEDS: BENZONATATE 100 MG CAP PO PRN (08:10)
[2020-12-20] MEDS: NYSTATIN PWDR 100000 UNIT/GM TOP SCH (08:10)
[2020-12-20] MEDS: AMOX/K CLAV 875 MG TAB PO SCH (08:12)
[2020-12-20 08:51] VITALS: BP 118/43
[2020-12-20] MEDS: lisinopriL 20 MG TAB PO SCH (09:00)
[2020-12-20] MEDS: GUAIFENESIN/DM 5 ML UCUP PO PRN (11:45)
[2020-12-20 14:27] VITALS: O2SAT 97
--- NOTE | 2020-12-20 20:06 | P.DS ---
Admission Date: 12/14/20 Discharge Date: 12/20/20 Primary Care Provider: Sweta Disposition: ROUTINE DISCHARGE Discharge Condition: FAIR Reason for Admission: covid pneumonia Consultations: Pulmonology - Dr. Pickering Procedures: CXR (12/14): Mild to moderate bilateral pulmonary opacities noted which may represent pulmonary edema or infection. The heart is upper limit normal in size. No displaced fractures. CT Head (12/14): No acute intracranial abnormality. TTE (12/18): normal LV size/function (68%). no wall motion abnormality. normal LA size. no thrombus. Afib with RVR Problem List Acute hypoxemic respiratory failure secondary to pneumonia due to COVID-19 virus Atrial fibrillation with RVR UTI, cystitis EV, resolved HTN h/o LLE DVT Hypernatremia, resolved Brief History of Present Illness: Ms. Harrell is a 79 yo F with history of CHF, HTN, HLD, hypothyroidism and blood clots here today for 3 weeks of cough productive of white sputum and weakness. She was found to be COVID+ today. She reports nausea, vomiting, and diarrhea. She has been unable to keep food or liquids down. Denies night sweats, chills, SOB, COUCH, wheezing, pleuritic pain, leg pain and edema. She says she has not taken her medication for the past few weeks due to weakness and fatigue. Found to be hypoxic to 91%. CXR shows mild to moderate bilateral pulmonary opacities noted which may represent pulmonary edema or infection and the heart is ULN in size. Hospital Course: Patient was treated with IV Steroids, vitamin supplementation, Ivermectin. Her oxygen requirement improved and she was breathing comfortably on room air. She developed atrial fibrillation with RVR which resolved after initiation of metoprolol. Her urine grew klebsiella pneumoniae and she was treated with Augmentin. She had improvement of her symptoms and weakness. She refused discharged to SNF and family reported they were able to care for her at home. She was discharged with prednisone, vitamins, augmentin, and refill for her eliquis. Follow up with Dr. Pickering (Pulm) in ~1 week. Follow up with PCP in 3-5 days. Follow up with Cardiology in ~1 month. Vital Signs/Physical Exam: Physical Exam General: Alert, In no apparent distress HEENT: normal conjunctiva, sclera anicteric Respiratory: nonlabored respirations on room air Cardiovascular: regular rate/rhythm, no murmur Gastrointestinal: Soft , Non-distended, No tenderness Musculoskeletal: No swelling/tenderness Integumentary: No rashes Temp Pulse Resp BP Pulse Ox 97.0 F 60 15 118/43 L 98 12/20/20 12:00 12/20/20 12:00 12/20/20 12:00 12/20/20 12:00 12/20/20 12:00 Laboratory Data at Discharge: WBC 17.60 K/uL (4.3-10.9) H D 12/20/20 05:26 Hgb 12.8 g/dL (12.0-15.0) 12/20/20 05:26 Hct 38.3 % (36.0-45.0) 12/20/20 05:26 Plt Count 381 K/uL (152-406) 12/20/20 05:26 PT 12.2 SECONDS (9.5-12.5) 12/14/20 16:00 INR 1.06 12/14/20 16:00 Sodium 138 mmol/L (136-145) 12/20/20 05:26 Potassium 4.7 mmol/L (3.5-5.1) 12/20/20 05:26 BUN 51 mg/dL (7-18) H 12/20/20 05:26 Creatinine 1.20 mg/dL (0.55-1.3) 12/20/20 05:26 Glucose 217 mg/dL (74-106) H 12/20/20 05:26 Phosphorus 3.5 mg/dL (2.5-4.9) D 12/20/20 05:26 Magnesium 2.2 mg/dL (1.8-2.4) 12/19/20 04:22 Total Bilirubin 0.6 mg/dL (0.2-1.0) 12/18/20 04:29 AST 5 U/L (15-37) L 12/18/20 04:29 ALT 21 U/L (12-78) 12/18/20 04:29 Alkaline Phosphatase 51 U/L (45-117) 12/18/20 04:29 Triglycerides 82 mg/dL (<150) 12/15/20 05:10 Cholesterol 93 mg/dL (<200) 12/15/20 05:10 HDL Cholesterol 37 mg/dL (40-60) L 12/15/20 05:10 Cholesterol/HDL Ratio 2.51 12/15/20 05:10 Home Medications: Ranitidine [Zantac*] 150 mg PO BID 11/29/18 Potassium Chloride [Klor-Con 10] 10 meq PO DAILY #30 tablet.er 02/03/19 Atorvastatin Calcium [Lipitor] 20 mg PO BEDTIME 12/15/20 Famotidine 20 mg PO BID 12/15/20 Furosemide [Lasix*] 40 mg PO T,TH,S 12/15/20 Levothyroxine [Synthroid*] 0.1 mg PO DAILY 12/15/20 Lisinopril [Zestril] 20 mg PO DAILY 12/15/20 Amox/Clavulanate [Augmentin 875-125 Tab*] 875 mg PO BID 6 Days #12 tab 12/20/20 Apixaban [Eliquis] 5 mg PO BID 30 Days #60 12/20/20 Ascorbic Acid [Vitamin C*] 500 mg PO QID 30 Days #120 tablet 12/20/20 Cholecalciferol (Vitamin D3) [Vitamin D 1000 Iu Tab*] 4,000 unit PO DAILY 30 Days #120 tab 12/20/20 Metoprolol Tartrate [Lopressor] 25 mg PO BID 30 Days #60 tab 12/20/20 Thiamine HCl [Vitamin B-1*] 200 mg PO DAILY 30 Days #60 tablet 12/20/20 Zinc Sulfate [Zinc Sulfate*] 220 mg PO DAILY 30 Days #30 cap 12/20/20 predniSONE [Deltasone] 20 mg PO DAILY 14 Days #21 tab 12/20/20 New Medications: Amox/Clavulanate [Augmentin 875-125 Tab*] 875 mg PO BID 6 Days #12 tab Apixaban [Eliquis] 5 mg PO BID 30 Days #60 Metoprolol Tartrate [Lopressor] 25 mg PO BID 30 Days #60 tab predniSONE [Deltasone] 20 mg PO DAILY 14 Days #21 tab Thiamine HCl [Vitamin B-1*] 200 mg PO DAILY 30 Days #60 tablet Ascorbic Acid [Vitamin C*] 500 mg PO QID 30 Days #120 tablet Cholecalciferol (Vitamin D3) [Vitamin D 1000 Iu Tab*] 4,000 unit PO DAILY 30 Days #120 tab Zinc Sulfate [Zinc Sulfate*] 220 mg PO DAILY 30 Days #30 cap Physician Discharge Instructions: PROBLEM: (list out Acute Problems for the Current visit) GOAL: Clear understanding of disease process INSTRUCTIONS: You were found to have COVID-19 pneumonia. You improved with steroids and vitamin supplementation. You are discharged to continue steroids (prednisone) and vitamins. You were also found to have atrial fibrillation (afib), a fast abnormal heart rate/rhythm. This improved with metoprolol. You are discharged with a new prescription for metoprolol. You were also found to have a possible urinary tract infection and are prescribed 6 more days of antibiotics. Please follow up with Cardiology, Dr. Mari, in ~1 month. Please follow up with your PCP in 3-5 days. Please follow up with Dr. Pickering (lung doctor) in ~1 week. Call his office when you get home to set up the phone appointment. You need to take your Eliquis as prescribed - 5mg twice a day - COVID-19 and Afib will further increase your risk of blood clots and /or stroke. IF YOUR SYMPTOMS WORSEN, PLEASE GO TO THE ER. IF YOU HAVE ANY QUESTIONS REGARDING YOUR HOSPITAL STAY, FEEL FREE TO CALL . Diet: AHA Activity: Fall precautions DME DME: Date Ordered: Name of Company: [employer] Services Needed: None Name of Company: Date or Referral: IMMUNIZATION Influenza Vaccine Indicated: Influenza Vaccine Given: Date Given: Pneumonia Vaccine Indicated: No Pneumonia Vaccine Given: Date Given: Diet: AHA Activity: Fall precautions Followup: Kirill Pickering MD [ACTIVE - CAN ADMIT] - Mejia Mari MD [ACTIVE - CAN ADMIT] - Unknown,U [Primary Care Provider] - Time spent managing pt's care (in minutes): 35
--- NOTE | 2020-12-24 15:13 | CON ---
Date of Consultation: 12/18/2020 The patient was admitted on 12/14/[address] Guerrero. I saw the patient on 12/18/2020. Reason For Consultation: Atrial fibrillation and onset of COVID pneumonia. History Of Present Illness: Ms. Harrell is a 79-year-old woman with history of DVT, congestive heart failure, hypertension, gout, paroxysmal atrial fibrillation. Has had left knee replacement. Was odalys ng treated for COVID and developed rapid atrial fibrillation. I was consulted. No cardiac symptoms reported. Past Medical History: As stated above. Allergies: SHE IS ALLERGIC TO ALLOPURINOL. Review of Systems: Negative. Social History: Negative. Family History: Noncontributory. Medications: Include Eliquis 5 mg b.i.d., Lipitor 20 mg daily, Pepcid 20 mg daily, levothyroxine 100 mcg daily, lisinopril 20 mg 1 p.o. daily. Physical Examination: Vital Signs: Stable. She was afebrile, but she was in atrial fibrillation, rate 120. HEENT: Negative. Neck: Supple without any bruit, lymphadenopathy, JVD, or thyromegaly. Cardiac: Revealed atrial fibrillation. Chest: Reveals rales both bases. Abdomen: Benign. Extremities: Revealed no clubbing, cyanosis, or edema. Diagnostic Data: She had a white count of 17,000. Creatinine was normal. Her glucose was 262, crea tinine is 1.2. Her ferritin level was 860. EKG initially was normal on admission, the second one sh owed atrial fibrillation with rapid ventricular response. Chest x-ray showed infection versus pulmon clifford edema. Echocardiogram that was done right before I saw the patient showed normal ejection fracti on with atrial fibrillation with rapid ventricular response. Impression And Plan: Paroxysmal atrial fibrillation, now rapid ventricular response. She is already on Eliquis. She needs to be placed on beta-blockers. If that does not work, we will consider amiod arone drip or sotalol, but we will see how she does. She does have a normal ejection fraction and ho pefully, she will convert with beta-blockers. Continue Eliquis. We will see how she does down the r oad. Her other problems including her COVID and her history of gastroesophageal reflux disease, hypo thyroidism, and hypertension are well controlled at this point. We will continue to follow as needed . DESTINY/ISMA Voice ID: [id number] Report ID: [id number]
== END 2020-12-20 13:30 | disposition home health service (06) | DRG 177 ==
LOC: ER 15:37 → ERHOLD 20:11 → 3RD-ICU 12-17 18:07
PROVIDERS: ADMIT Internal Medicine; ATTEND Hospitalist
DX: U07.1 COVID-19 (principal); J12.82 Pneumonia due to coronavirus disease 2019; J96.01 Acute respiratory failure with hypoxia; E87.0 Hyperosmolality and hypernatremia; N17.9 Acute kidney failure, unspecified; N39.0 Urinary tract infection, site not specified; M10.9 Gout, unspecified; E03.9 Hypothyroidism, unspecified; I11.0 Hypertensive heart disease with heart failure; I50.9 Heart failure, unspecified; I48.0 Paroxysmal atrial fibrillation; E78.5 Hyperlipidemia, unspecified; B96.1 Klebsiella pneumoniae [K. pneumoniae] as the cause of diseases classified elsewhere; Z79.01 Long term (current) use of anticoagulants; Z79.890 Hormone replacement therapy; Z79.899 Other long term (current) drug therapy; Z86.718 Personal history of other venous thrombosis and embolism; Z79.52 Long term (current) use of systemic steroids; Z96.652 Presence of left artificial knee joint; Z88.8 Allergy status to other drugs, medicaments and biological substances; Z98.51 Tubal ligation status; Z90.49 Acquired absence of other specified parts of digestive tract
CPT/HCPCS: 36415; 51702; 70450; 71045; 80048; 80053; 80061; 80076; 81003; 81015; 82728; 82947; 83036; 83735; 83880; 84100; 84145; 84439; 84443; 84484; 85025; 85379; 85610; 86140; 87077; 87086; 87088; 87186; 93005; 93306; 94760; 97116; 97161; 97530; 99285; J1940; J2405; J2920; J7042; U0003

== ENCOUNTER 2021-05-29 16:33 | Observation (INO) | payer OTHER ==
[2021-05-29 18:08] LABS: ALT/SGPT 25 U/L (12-78); AST/SGOT 10 U/L (15-37); Albumin 3.1 g/dL (3.4-5.0); Alkaline Phosphatase 96 U/L (45-117); BUN Blood Urea Nitrogen 13 mg/dL (7-18); Bicarbonate 24 mmol/L (21-32); Bilirubin Direct 0.2 mg/dL (0-0.2); Bilirubin Total 0.7 mg/dL (0.2-1.0); Glucose Level 121 mg/dL (74-106); Magnesium 1.8 mg/dL (1.8-2.4); NT PRO-BNP 587 pg/mL (<450); Potassium 3.8 mmol/L (3.5-5.1); Protein, Total 6.5 g/dL (6.4-8.2); Sodium Level 142 mmol/L (136-145); Troponin (Emerg Dept Use Only) < 0.02 ng/mL (0.0-0.045)
--- NOTE | 2021-05-29 18:32 | RAD REPORT ---
EXAM DESCRIPTION: RAD - Chest Single View - 05/29/2021 6:25 pm CLINICAL HISTORY: CONGESTION COMPARISON: Chest Pa And Lat (2 Views) dated 05/29/2021; Chest Single View dated 12/14/2020; Chest Sin gle View dated 09/26/2020; Chest Single View dated 02/02/2019 FINDINGS: Lines: None. Lungs: Pulmonary vascular congestion. Pleural: No significant pleural effusions or pneumothorax. Cardiac: Cardiomegaly. Bones: No acute fractures. Other: IMPRESSION: Vascular congestion without jacqui pulmonary edema.
[2021-05-29 19:05] LABS: Absolute Lymphocytes (CBC) 1.6 K/uL (0.7-4.9); Hematocrit 34.8 % (36.0-45.0); Lymphocytes % 22.9 % (15.3-44.8); MPV 7.4 fL (7.6-11.3); RBC Red Blood Cell Count 3.92 M/uL (3.86-4.86)
[2021-05-29 19:07] LABS: Protime INR 1.04
--- NOTE | 2021-05-29 20:02 | RAD REPORT ---
EXAM DESCRIPTION: US - Extrem Venous W Compress [place] - 05/29/2021 7:46 pm CLINICAL HISTORY: History of DVT, pain swelling COMPARISON: 09/26/2020 TECHNIQUE: Real-time sonographic evaluation of the bilateral lower extremity deep venous systems was performed. FINDINGS: Normal compressibility, flow augmentation, phasic flow and spontaneous flow is identified in both the right lower extremity deep venous systems. No intraluminal filling defects seen. In the left lower extremity, there is incomplete compressibility of the femoral vein. The popliteal, greater saphenous vein, posterior tibial vein, and common femoral vein are all patent. IMPRESSION: Positive for deep venous thrombosis in the left femoral vein were there is nonocclusive thrombus. The right leg is unremarkable.
--- NOTE | 2021-05-29 20:40 | RAD REPORT ---
EXAM DESCRIPTION: CT - Chest For Pe Angio - 05/29/2021 8:31 pm CLINICAL HISTORY: elevated D-dimer COMPARISON: Chest For Pe Angio dated 07/28/2018; Chest Single View dated 05/29/2021 FINDINGS: Chest Wall: No suspicious thyroid nodules or pathologic lymphadenopathy. Lungs: Mild bilateral ground-glass opacities. Pleura: No significant effusions or pneumothorax. Mediastinum/shiva: No pathologic lymphadenopathy. Pulmonary arteries/Aorta: No filling defect identified. No aortic aneurysm. Heart: No significant pericardial effusion. Normal heart size. Mitral annular calcifications. Upper abdomen: Cholecystectomy. Bones: No acute abnormality. All CT scans are performed using dose optimization technique as appropriate and may include automated exposure control or mA/KV adjustment according to patient size. IMPRESSION: Negative for pulmonary embolism. Mild scattered groundglass opacities may mild interstit ial edema.
--- NOTE | 2021-05-29 20:56 | EDPHYS ---
Physician Documentation [facility] Name: Cherise Harrell Age: 80 yrs Sex: Female : 1940 Arrival Date: 05/29/2021 Time: 16:37 Bed 13 Private MD: Gregory George E ED Physician Devyn Guerrero HPI: 05/29 18:49 This 80 yrs old Female presents to ER via Wheelchair with complaints of kdr Abnormal Lab Results - d-dimer. 18:49 Family states that the patient has been off her medication (blood thinners) for several kdr weeks. They tried to get her seen by her PCP but the PCP is unwilling to restart her on her medication without blood drawn. Blood was drawn this morning and it was noted that she had an elevated D-dimer. Patient is asymptomatic but was told to come to the ED for further evaluation. She does have swelling and pain in her left lower extremity that has been going on for few days.. 19:40 Onset: The symptoms/episode began/occurred at an unknown time. Severity of symptoms: At rn their worst the symptoms were mild in the emergency department the symptoms are unchanged. The patient has experienced similar episodes in the past. The patient has been recently seen by a physician:. Patient sent by PCP after elevated D-dimer and standard blood work. Patient grossly asymptomatic. Does have a history of DVT 2 years ago but was following left knee replacement. Has since been taken off of her blood thinner. Reports mild shortness of breath with exertion but able to lie flat and reports that began about a month ago. Reports increased fluid retention in both legs over the last month as well. Denies any kidney problems. Denies any fever or recent illness.. Historical: - Allergies: 17:07 Allopurinol; ap3 - PMHx: 17:07 Atrial Fib; blood clots; DVT; Hypertension; ap3 - Immunization history:: Client reports having NOT received the Covid vaccine. - Social history:: Smoking status: Patient denies any tobacco usage or history of. Patient/guardian denies using alcohol, street drugs. - Family history:: not pertinent. - Hospitalizations: : No recent hospitalization is reported. ROS: 19:40 Constitutional: Negative for fever, chills, and weight loss, Eyes: Negative for injury, rn pain, redness, and discharge, Neck: Negative for injury, pain, and swelling, Cardiovascular: Negative for chest pain, palpitations Respiratory: Positive for shortness of breath on exertion. Abdomen/GI: Negative for abdominal pain, nausea, vomiting, diarrhea, and constipation, : Negative for injury, bleeding, discharge, and swelling, MS/Extremity: Positive for swelling of bilateral lower extremities Skin: Negative for injury, rash, and discoloration, Neuro: Negative for headache, numbness, tingling, and seizure. Exam: 19:40 Constitutional: Overweight female, no acute distress currently getting ultrasound of rn lower extremities. Head/Face: Normocephalic, atraumatic. Eyes: Periorbital areas with no swelling, redness, or edema. ENT: No stridor Cardiovascular: Irregular rhythm, regular rate. No pulse deficits. Respiratory: Speaking full sentences. No increased work of breathing, no retractions or nasal flaring. Abdomen/GI: Soft, non-tender Skin: Warm, dry, no evidence of cellulitis MS/ Extremity: Pulses equal, no cyanosis. Neurovascular intact. Full, normal range of motion. Equal circumference. 2+ pitting edema bilateral lower ext Neuro: Awake and alert, GCS 15, oriented to person, place, time, and situation. Cranial nerves II-XII grossly intact. Motor strength 4/5 in all extremities. Sensory grossly intact. 20:54 ECG was reviewed by the Attending Physician. rn Vital Signs: 17:05 BP 146 / 60; Pulse 87; Resp 18; Temp 97.6(TE); Pulse Ox 99% on R/A; Weight 117.93 kg ap3 (R); Height 5 ft. 2 in. (157.48 cm) (R); 20:21 BP 116 / 56; Pulse 86; Resp 20; Pulse Ox 100% ; lh3 23:37 BP 113 / 74; Pulse 84; Resp 18; Pulse Ox 97% on R/A; lh3 17:05 Body Mass Index 47.55 (117.93 kg, 157.48 cm) ap3 MDM: 19:21 Patient medically screened. rn 20:48 Differential Diagnosis DVT, pulmonary embolism, pulmonary edema, lymphedema, CHF. Data rn reviewed: vital signs, nurses notes, lab test result(s), EKG, radiologic studies, CT scan, plain films, and as a result, I will admit patient. Data interpreted: Pulse oximetry: on room air is 99 %. Interpretation: normal. 20:54 Counseling: I had a detailed discussion with the patient and/or guardian regarding: the rn historical points, exam findings, and any diagnostic results supporting the discharge/admit diagnosis, lab results, radiology results, the need for further work-up and treatment in the hospital. Response to treatment: the patient's symptoms have mildly improved after treatment, and as a result, I will admit patient. Admission orders: after a detailed discussion of the patient's condition and case, the admit orders are written by me. 05/29 17:20 Order name: Basic Metabolic Panel; Complete Time: : kdr 05/29 17:20 Order name: CBC with Diff; Complete Time: : kdr 05/29 17:20 Order name: LFT's; Complete Time: : kdr 05/29 17:20 Order name: Magnesium; Complete Time: : kdr 05/29 17:20 Order name: NT PRO-BNP; Complete Time: : kdr 05/29 17:20 Order name: PT-INR; Complete Time: : kdr 05/29 17:20 Order name: Troponin (emerg Dept Use Only); Complete Time: : kdr 05/29 17:20 Order name: XRAY Chest (1 view); Complete Time: : kdr 05/29 17:20 Order name: D-Dimer; Complete Time: : kdr 05/29 21:31 Order name: COVID-19 (Coronavirus) Document "Date of Onset" if Symptomatic lh3 05/29 21:32 Order name: CORONAVIRUS EDSD 05/29 22:33 Order name: SARS-COV-2 RT PCR EDSD 05/30 00:07 Order name: Urinalysis EDSD 05/30 00:16 Order name: Urine Microscopic Only EDSD 05/29 17:20 Order name: EKG; Complete Time: 17:21 kdr 05/29 17:20 Order name: Cardiac monitoring; Complete Time: 17:30 kdr 05/29 17:20 Order name: EKG - Nurse/Tech; Complete Time: 17:30 kdr 05/29 17:20 Order name: IV Saline Lock; Complete Time: 23:35 kdr 05/29 17:20 Order name: Labs collected and sent; Complete Time: 17:51 kdr 05/29 17:20 Order name: O2 Per Protocol; Complete Time: 19:13 kdr 05/29 17:20 Order name: O2 Sat Monitoring; Complete Time: 19:13 kdr 05/29 18:50 Order name: US Extremity Venous W Compression [place]; Complete Time: 20:42 kdr 05/29 19:22 Order name: CT Chest For PE Angio; Complete Time: 20:42 rn EC:54 Rate is 85 beats/min. Rhythm is regular. QRS [place] is Normal. WA interval is normal. QRS rn interval is normal. QT interval is prolonged at 483 msec. No Q waves. T waves are Normal. No ST changes noted. Clinical impression: NSR, prolonged QT. Interpreted by me. Reviewed by me. Administered Medications: 21:08 Drug: Eliquis (apixaban) 5 mg Route: PO; 3 23:35 Follow up: Response: No adverse reaction 3 21:08 Drug: Lasix (furosemide) 20 mg Route: IVP; Site: right upper arm; 3 23:35 Follow up: Response: No adverse reaction 3 Disposition Summary: 05/29/21 20:55 Hospitalization Ordered Hospitalization Status: Observation rn Provider: Philip Aguillon rn Location: Telemetry/MedSurg (observation) rn Condition: Stable rn Problem: new rn Symptoms: have improved rn Bed/Room Type: Standard rn Room Assignment: 426(05/29/21 23:00) eb1 Diagnosis - Acute embolism and thrombosis of other specified deep vein of left lower extremity rn - Acute pulmonary edema rn - Dyspnea, unspecified rn Forms: - Medication Reconciliation Form rn - SBAR form rn Signatures: Dispatcher [employer] EDMS Edmundo Benson MD MD kdr Nieto, Roman, MD MD rn Prokisch, Amanda RN RN ap3 Ladan Camargo RN RN eb1 Marguerite Miller RN RN lh3 Corrections: (The following items were deleted from the chart) 17:08 17:07 PMHx: CHF; ap3 ap3 17:08 17:07 PMHx: Gout; ap3 ap3 19:42 19:40 Constitutional: Negative for fever, chills, and weight loss, Eyes: Negative for rn injury, pain, redness, and discharge, Neck: Negative for injury, pain, and swelling, Cardiovascular: Negative for chest pain, palpitations, and edema, Respiratory: Positive for shortness of breath on exertion. Abdomen/GI: Negative for abdominal pain, nausea, vomiting, diarrhea, and constipation, : Negative for injury, bleeding, discharge, and swelling, MS/Extremity: Positive for swelling of bilateral lower extremities Skin: Negative for injury, rash, and discoloration, Neuro: Negative for headache, numbness, tingling, and seizure, rn 20:54 19:40 Constitutional: Overweight female, no acute distress currently getting ultrasound rn of lower extremities. Head/Face: Normocephalic, atraumatic. Eyes: Periorbital areas with no swelling, redness, or edema. ENT: No stridor Cardiovascular: Irregular rhythm, regular rate. No pulse deficits. Respiratory: Speaking full sentences. No increased work of breathing, no retractions or nasal flaring. Abdomen/GI: Soft, non-tender Skin: Warm, dry, no evidence of cellulitis MS/ Extremity: Pulses equal, no cyanosis. Neurovascular intact. Full, normal range of motion. Equal circumference. Neuro: Awake and alert, GCS 15, oriented to person, place, time, and situation. Cranial nerves II-XII grossly intact. Motor strength 4/5 in all extremities. Sensory grossly intact. rn 23:00 20:55 rn eb1
--- NOTE | 2021-05-29 20:56 | ER ---
Nurse's Notes [facility] Name: Cherise Harrell Age: 80 yrs Sex: Female : 1940 Arrival Date: 05/29/2021 Time: 16:37 Bed 13 Private MD: Gregory George E Diagnosis: Acute embolism and thrombosis of other specified deep vein of left lower extremity;Acute pulmonary edema;Dyspnea, unspecified Presentation: 05/29 17:05 Chief complaint: Patient states: Patient states that her DrBrianna sent her here to be ap3 evaluated due to her "developing a blood clot". This was based on lab work. Patient reports having a history of blood clots in her left leg. Coronavirus screen: At this time, the client does not indicate any symptoms associated with coronavirus-19. Ebola Screen: No symptoms or risks identified at this time. Initial Sepsis Screen: Does the patient meet any 2 criteria? No. Patient's initial sepsis screen is negative. Does the patient have a suspected source of infection? No. Patient's initial sepsis screen is negative. Risk Assessment: Do you want to hurt yourself or someone else? Patient reports no desire to harm self or others. Onset of symptoms was May 29, 2021. 17:05 Method Of Arrival: Wheelchair ap3 17:05 Acuity: RICCARDO 3 ap3 Triage Assessment: 17:08 General: Appears obese, Behavior is calm, cooperative. Pain: Complains of pain in left ap3 leg Pain currently is 10 out of 10 on a pain scale. Pain began gradually, Is intermittent. Neuro: Level of Consciousness is awake, alert, obeys commands, Oriented to person, place, time, situation, Appropriate for age Speech is normal. Cardiovascular: Patient's skin is warm and dry. Respiratory: Airway is patent. Musculoskeletal: Swelling present in left leg. Historical: - Allergies: 17:07 Allopurinol; ap3 - PMHx: 17:07 Atrial Fib; blood clots; DVT; Hypertension; ap3 - Immunization history:: Client reports having NOT received the Covid vaccine. - Social history:: Smoking status: Patient denies any tobacco usage or history of. Patient/guardian denies using alcohol, street drugs. - Family history:: not pertinent. - Hospitalizations: : No recent hospitalization is reported. Screenin:46 Abuse screen: Denies threats or abuse. Denies injuries from another. Nutritional tc5 screening: No deficits noted. Tuberculosis screening: No symptoms or risk factors identified. Fall Risk None identified. Assessment: 17:45 Reassessment: Patient appears in no apparent distress at this time. General: Appears in tc5 no apparent distress. Behavior is calm, cooperative, appropriate for age. 17:51 Cardiovascular: Reports send here by PCP due to elevated labs. attempted to est IV tc5 site, unable to do so at this time, coworker asked to try and est IV site. 20:18 Reassessment: Patient appears in no apparent distress at this time. No changes from lh3 previously documented assessment. Patient and/or family updated on plan of care and expected duration. Pain level reassessed. Patient is alert, oriented x 3, equal unlabored respirations, skin warm/dry/pink. Vital Signs: 17:05 BP 146 / 60; Pulse 87; Resp 18; Temp 97.6(TE); Pulse Ox 99% on R/A; Weight 117.93 kg ap3 (R); Height 5 ft. 2 in. (157.48 cm) (R); 20:21 BP 116 / 56; Pulse 86; Resp 20; Pulse Ox 100% ; lh3 23:37 BP 113 / 74; Pulse 84; Resp 18; Pulse Ox 97% on R/A; lh3 17:05 Body Mass Index 47.55 (117.93 kg, 157.48 cm) ap3 ED Course: 16:37 Patient arrived in ED. as 16:37 Gregory George MD is Private Physician. as 17:06 Edmundo Benson MD is Attending Physician. kdr 17:07 Triage completed. ap3 17:09 Arm band placed on right wrist. ap3 17:11 Yuly Flores, PHILIP is Primary Nurse. tc5 18:25 XRAY Chest (1 view) In Process Unspecified. EDMS 19:21 Attending Physician role handed off by Edmundo Benson MD rn 19:21 Devyn Guerrero MD is Attending Physician. rn 19:29 Primary Nurse role handed off by Yuly Flores, PHILIP lh3 19:29 Marguerite Miller, PHILIP is Primary Nurse. lh3 19:46 US Extremity Venous W Compression [place] In Process Unspecified. EDMS 20:31 CT Chest For PE Angio In Process Unspecified. EDMS 20:55 Philip Aguillon MD is Hospitalizing Provider. rn 23:04 No provider procedures requiring assistance completed. Inserted saline lock: 20 gauge lh3 in left upper arm, using aseptic technique. 23:05 Patient has correct armband on for positive identification. Bed in low position. Call 3 light in reach. Side rails up X 1. Side rails up X2. 23:06 Patient admitted, IV remains in place. 3 23:35 CORONAVIRUS Sent. 3 23:35 COVID-19 (Coronavirus) Document "Date of Onset" if Symptomatic Sent. 3 Administered Medications: 21:08 Drug: Eliquis (apixaban) 5 mg Route: PO; 3 23:35 Follow up: Response: No adverse reaction 3 21:08 Drug: Lasix (furosemide) 20 mg Route: IVP; Site: right upper arm; 3 23:35 Follow up: Response: No adverse reaction 3 Outcome: 20:55 Decision to Hospitalize by Provider. rn 23:05 Admitted to Med/surg room 426, Report called to PHILIP Hanley 3 23:05 Condition: good 23:05 Instructed on the need for admit. 05/30 00:26 Patient left the ED. 3 Signatures: Dispatcher [employer] EDMS Edmundo Benson MD MD kdr Martinez, Amelia as Nieto, Roman, MD MD rn Prokisch, Amanda, RN RN ap3 Marguerite Miller RN RN 3 Yuly Flores RN RN tc5 Corrections: (The following items were deleted from the chart) 05/29 17:08 17:07 PMHx: CHF; ap3 ap3 17:08 17:07 PMHx: Gout; ap3 ap3 23:36 23:05 Admitted to Med/surg room 423, 3 3
[2021-05-29] MEDS ORDERED: FUROSEMIDE 20 MG/ 2ML VIAL ONE (21:23)
[2021-05-29] MEDS ORDERED: APIXABAN 5 MG TABLET ONE (21:23)
--- NOTE | 2021-05-29 22:00 | P.HP ---
Certification for Inpatient Patient admitted to: Observation With expected LOS: <2 Midnights Patient will require the following post-hospital care: None Practitioner: I am a practitioner with admitting privileges, knowledge of patient current condition, hospital course, and medical plan of care. Services: Services provided to patient in accordance with Admission requirements found in Title 42 Section 412.3 of the Code of Federal Regulations Patient History Date of Service: 05/29/21 Reason for admission: LLE DVT History of Present Illness: Ms. 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 She says she has been off her eliquis for weeks because her PCP would not refill it unless he went into clinic. She says she just got out of the hospital and has been too weak to go to clinic without a wheelchair. She had her bloodwork done today and DDimer was 1602. She has chronic leg pain but has noticed more swelling in her left leg. Also reports increased SOB and COUCH over the past month. BNP 587. CXR with vascular congestion. EF 68% in December 2020. Allergies allopurinol Adverse Reaction (Severe, Uncoded 12/15/20 00:19) kidney problem Home Medications: Ranitidine [Zantac*] 150 mg PO BID 11/29/18 Potassium Chloride [Klor-Con 10] 10 meq PO DAILY #30 tablet.er 02/03/19 Atorvastatin Calcium [Lipitor] 20 mg PO BEDTIME 12/15/20 Famotidine 20 mg PO BID 12/15/20 Furosemide [Lasix*] 40 mg PO T,,S 12/15/20 Levothyroxine [Synthroid*] 0.1 mg PO DAILY 12/15/20 Lisinopril [Zestril] 20 mg PO DAILY 12/15/20 Amox/Clavulanate [Augmentin 875-125 Tab*] 875 mg PO BID 6 Days #12 tab 12/20/20 Apixaban [Eliquis] 5 mg PO BID 30 Days #60 12/20/20 Ascorbic Acid [Vitamin C*] 500 mg PO QID 30 Days #120 tablet 12/20/20 Cholecalciferol (Vitamin D3) [Vitamin D 1000 Iu Tab*] 4,000 unit PO DAILY 30 Days #120 tab 12/20/20 Metoprolol Tartrate [Lopressor] 25 mg PO BID 30 Days #60 tab 12/20/20 Thiamine HCl [Vitamin B-1*] 200 mg PO DAILY 30 Days #60 tablet 12/20/20 Zinc Sulfate [Zinc Sulfate*] 220 mg PO DAILY 30 Days #30 cap 12/20/20 predniSONE [Deltasone] 20 mg PO DAILY 14 Days #21 tab 12/20/20 - Past Medical/Surgical History Diabetic: No -: Hiatal Hernia -: CHF -: history of DVT-left leg -: gout -: HTN -: HLD -: hypothyroidism -: afib -: Knee Replacement-left -: Tubal ligation -: cholecystectomy -: cataracts -: appendectomy -: tonsillectomy -: knee surgery - Family History Mother -: Heart disease - Social History Smoking Status: Never smoker Alcohol use: Yes CD- Drugs: No Caffeine use: Yes Place of Residence: Home Review of Systems 10-point ROS is otherwise unremarkable General: Unremarkable Eyes: Unremarkable ENT: Unremarkable Respiratory: Shortness of Breath, SOB with Excertion, As per HPI Cardiovascular: Edema Gastrointestinal: Unremarkable Genitourinary: Unremarkable Musculoskeletal: Leg Pain Integumentary: Unremarkable Neurological: Unremarkable Lymphatics: Unremarkable Physical Examination - Physical Exam General: Alert, In no apparent distress, Obese HEENT: Atraumatic, PERRLA, Mucous membr. moist/pink, EOMI, Sclerae nonicteric Neck: Supple, 2+ carotid pulse no bruit, No LAD, Without JVD or thyroid abnormality Respiratory: Normal air movement, Crackles/rales Cardiovascular: Regular rate/rhythm, Normal S1 S2, Edema Gastrointestinal: Normal bowel sounds, No tenderness Musculoskeletal: No clubbing, No contractures, No erythema, No warmth, Swelling, Tenderness Integumentary: No rashes Neurological: Normal speech, Normal strength at 5/5 x4 extr, Normal tone, Normal affect Lymphatics: No axilla or inguinal lymphadenopathy - Studies Laboratory Data (last 24 hrs) 05/29/21 18:55: PT 12.0, INR 1.04 05/29/21 18:55: WBC 6.80, Hgb 11.5 L, Hct 34.8 L, Plt Count 289 05/29/21 17:40: Sodium 142, Potassium 3.8, BUN 13, Creatinine 1.05, Glucose 121 H, Magnesium 1.8, Total Bilirubin 0.7, AST 10 L, ALT 25, Alkaline Phosphatase 96 Assessment and Plan - Problems (Diagnosis) (1) Afib Current Visit: Yes Status: Chronic Qualifiers: Atrial fibrillation type: unspecified Qualified Code(s): I48.91 - Unspecified atrial fibrillation (2) Left leg DVT Onset Date: 07/29/18 Current Visit: No Status: Acute Qualifiers: Affected thrombotic vein of extremity: unspecified vein of extremity Chronicity: acute Qualified Code(s): I82.402 - Acute embolism and thrombosis of unspecified deep veins of left lower extremity (3) CHF (congestive heart failure) Onset Date: 07/29/18 Current Visit: No Status: Chronic Qualifiers: Heart failure type: unspecified Heart failure chronicity: acute on chronic Qualified Code(s): I50.9 - Heart failure, unspecified (4) HLD (hyperlipidemia) Current Visit: No Status: Chronic Qualifiers: (5) HTN (hypertension) Current Visit: No Status: Chronic Qualifiers: Hypertension type: primary hypertension Qualified Code(s): I10 - Essential (primary) hypertension - Plan eliquis 10mg BID x 7 days, then return to normal dose IV lasix, daily weights, fluid restriction, low sodium diet O2 as needed BP stable, continue to monitor reconcile and continue home medications Discharge Plan: Home Plan to discharge in: 24 Hours - Advance Directives Does patient have a Living Will: No Does patient have a Durable POA for Healthcare: No - Code Status/Comfort Care Code Status Assessed: Yes (full code ) Critical Care: No Time Spent Managing Pts Care (In Minutes): 70
[2021-05-29] MEDS ORDERED: ONDANSETRON 4 MG/2 ML VIAL IV PRN (23:11)
[2021-05-29] MEDS ORDERED: ACETAMINOPHEN 500 MG TAB PO PRN (23:11)
[2021-05-29 23:43] LABS: Urine Appearance CLOUDY (Clear); Urine Bilirubin NEGATIVE (Negative); Urine Blood 1+ (Negative); Urine Color YELLOW (Yellow); Urine Glucose NEGATIVE (Negative); Urine Protein NEGATIVE (Negative); Urine Urobilinogen 0.2 mg/dL (0.2-1.0)
[2021-05-30 00:07] LABS: Urine Microscopic Reflex ORDER UMIC
[2021-05-30 00:16] LABS: Urine Bacteria >50 /HPF (<20); Urine RBC <5 /HPF (NONE SEEN)
[2021-05-30 04:05] LABS: Hematocrit 31.2 % (36.0-45.0); Lymphocytes % 25.4 % (15.3-44.8); MPV 7.3 fL (7.6-11.3); RBC Red Blood Cell Count 3.56 M/uL (3.86-4.86)
[2021-05-30 04:37] LABS: Albumin 2.8 g/dL (3.4-5.0); Bilirubin Total 0.7 mg/dL (0.2-1.0); Magnesium 1.8 mg/dL (1.8-2.4); Potassium 3.6 mmol/L (3.5-5.1); Protein, Total 5.6 g/dL (6.4-8.2); Thyroid Stimulating Hormone 2.51 uIU/mL (0.360-3.740)
[2021-05-30 05:40] VITALS: BMI 50.3
[2021-05-30] MEDS ORDERED: PNEUMOCOCCAL VACCINE 0.5 ML IMVAC ONE (08:00)
[2021-05-30] MEDS ORDERED: POTASSIUM CL SA 10 MEQ TAB PO ONE (09:00)
[2021-05-30] MEDS ORDERED: APIXABAN 5 MG TABLET PO SCH (09:00)
[2021-05-30] MEDS ORDERED: NYSTATIN 100MU/GM CREAM 15GM TOP SCH (09:00)
[2021-05-30] MEDS ORDERED: FUROSEMIDE 20 MG/ 2ML VIAL IV SCH (09:00)
[2021-05-30] MEDS ORDERED: MAGNESIUM SULFATE 1 gm IVPB 1 GM/100 ML BAG IV ONE (09:00)
[2021-05-30 09:08] VITALS: BP 128/58
[2021-05-30 09:51] VITALS: TEMP 97.6; O2SAT 97
--- NOTE | 2021-05-30 10:59 | P.DS ---
Admission Date: 05/29/21 Discharge Date: 05/30/21 Disposition: DC HOME/HOME HEALTH CARE Discharge Condition: FAIR Reason for Admission: LLE DVT - Problems (1) Chronic diastolic CHF (congestive heart failure) Current Visit: Yes Status: Acute (2) Afib Current Visit: Yes Status: Chronic Qualifiers: Atrial fibrillation type: unspecified Qualified Code(s): I48.91 - Unspecified atrial fibrillation (3) Left leg DVT Onset Date: 07/29/18 Current Visit: No Status: Acute Qualifiers: Affected thrombotic vein of extremity: unspecified vein of extremity Chronicity: acute Qualified Code(s): I82.402 - Acute embolism and thrombosis of unspecified deep veins of left lower extremity (4) History of DVT (deep vein thrombosis) Current Visit: No Status: Chronic (5) UTI (urinary tract infection) Current Visit: No Status: Resolved Qualifiers: Urinary tract infection type: acute cystitis Hematuria presence: without hematuria Qualified Code(s): N30.00 - Acute cystitis without hematuria (6) Morbid obesity due to excess calories Current Visit: Yes Status: Acute Brief History of Present Illness: 80 yo F with CHF, HTN, 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 She says she has been off her eliquis for weeks because her PCP would not refill it unless she follows up in the clinic. She reported difficulty with ambulation from weakness and was not able to follow up in the clinic. She has chronic leg pain but has noticed more swelling in her left leg. Venous Doppler of the lower extremities demonstrated DVT in the left femoral vein. Patient hospitalized for further management. Hospital Course: Patient placed under observation on the medical floor and started on full-dose Eliquis 10 mg b.i.d. for acute DVT. Her urinalysis suggested the presence of UTI. Urine culture is pending. Patient was able to ambulate to and from bathroom during the hospital stay. She has been kept home health for PT. She is discharged with Eliquis dose for acute DVT. Also prescribed ciprofloxacin for the UTI. Patient stated she would not have access or means of making to the clinic because she bought a wheelchair. Vital Signs/Physical Exam: Temp Pulse Resp BP Pulse Ox 97.6 F 84 16 128/58 L 95 05/30/21 08:00 05/30/21 09:01 05/30/21 08:00 05/30/21 09:01 05/30/21 08:00 General: In no apparent distress, Oriented x3 HEENT: Normocephalic, Mucous membr. moist/pink Neck: JVD not distended Respiratory: Clear to auscultation bilaterally, Normal air movement Cardiovascular: No edema, Regular rate/rhythm, Normal S1 S2 Gastrointestinal: Normal bowel sounds, Soft and benign, Non-distended, No tenderness Musculoskeletal: Swelling (Left leg compared to the right.) Integumentary: Erythema (Mild erythema-left solomon.) Neurological: Normal speech, Normal strength at 5/5 x4 extr Laboratory Data at Discharge: WBC 7.70 K/uL (4.3-10.9) 05/30/21 03:47 Hgb 10.6 g/dL (12.0-15.0) L 05/30/21 03:47 Hct 31.2 % (36.0-45.0) L 05/30/21 03:47 Plt Count 289 K/uL (152-406) 05/30/21 03:47 PT 12.0 SECONDS (9.5-12.5) 05/29/21 18:55 INR 1.04 05/29/21 18:55 Sodium 144 mmol/L (136-145) 05/30/21 03:47 Potassium 3.6 mmol/L (3.5-5.1) 05/30/21 03:47 BUN 11 mg/dL (7-18) 05/30/21 03:47 Creatinine 0.91 mg/dL (0.55-1.3) 05/30/21 03:47 Glucose 103 mg/dL (74-106) 05/30/21 03:47 Phosphorus 3.0 mg/dL (2.5-4.9) 05/30/21 03:47 Magnesium 1.8 mg/dL (1.8-2.4) 05/30/21 03:47 Total Bilirubin 0.7 mg/dL (0.2-1.0) 05/30/21 03:47 AST 8 U/L (15-37) L 05/30/21 03:47 ALT 21 U/L (12-78) 05/30/21 03:47 Alkaline Phosphatase 81 U/L (45-117) 05/30/21 03:47 Triglycerides 103 mg/dL (<150) 05/30/21 03:47 Cholesterol 127 mg/dL (<200) 05/30/21 03:47 HDL Cholesterol 49 mg/dL (40-60) 05/30/21 03:47 Cholesterol/HDL Ratio 2.59 05/30/21 03:47 Home Medications: Ranitidine [Zantac*] 150 mg PO BID 11/29/18 Potassium Chloride [Klor-Con 10] 10 meq PO DAILY #30 tablet.er 02/03/19 Atorvastatin Calcium [Lipitor] 20 mg PO BEDTIME 12/15/20 Famotidine 20 mg PO BID 12/15/20 Furosemide [Lasix*] 40 mg PO T,TH,S 12/15/20 Levothyroxine [Synthroid*] 0.1 mg PO DAILY 12/15/20 Lisinopril [Zestril] 20 mg PO DAILY 12/15/20 Cholecalciferol (Vitamin D3) [Vitamin D 1000 Iu Tab*] 4,000 unit PO DAILY 30 Days #120 tab 12/20/20 Metoprolol Tartrate [Lopressor*] 25 mg PO BID 30 Days #60 tab 12/20/20 Apixaban [Eliquis] 10 mg PO BID #70 tablet 05/30/21 Ciprofloxacin HCl [Cipro 500 MG Tablet] 500 mg PO BID #10 tab 05/30/21 Nystatin Cream [Mycostatin 100MU/Gm Cream*] 0 appl TOP BID #1 tube 05/30/21 New Medications: Ciprofloxacin HCl [Cipro 500 MG Tablet] 500 mg PO BID #10 tab Apixaban [Eliquis] 10 mg PO BID #70 tablet Nystatin Cream [Mycostatin 100MU/Gm Cream*] 0 appl TOP BID #1 tube Diet: AHA Activity: Fall precautions Followup: Gregory George MD [Primary Care Provider] - 1-2 Weeks
== END 2021-05-30 12:59 | disposition home or self-care (01) ==
LOC: ER 16:33 → ERHOLD 21:35 → 4TH 23:50
PROVIDERS: ADMIT Internal Medicine; ATTEND Internal Medicine
DX: I82.402 Acute embolism and thrombosis of unspecified deep veins of left lower extremity (principal); N39.0 Urinary tract infection, site not specified; I11.0 Hypertensive heart disease with heart failure; I50.32 Chronic diastolic (congestive) heart failure; I48.91 Unspecified atrial fibrillation; M10.9 Gout, unspecified; E78.5 Hyperlipidemia, unspecified; E03.9 Hypothyroidism, unspecified; K44.9 Diaphragmatic hernia without obstruction or gangrene; E66.01 Morbid (severe) obesity due to excess calories; Z68.43 Body mass index [BMI] 50.0-59.9, adult; Z79.01 Long term (current) use of anticoagulants; Z88.8 Allergy status to other drugs, medicaments and biological substances; Z20.822 Contact with and (suspected) exposure to COVID-19; Z90.49 Acquired absence of other specified parts of digestive tract; Z96.652 Presence of left artificial knee joint; Z82.49 Family history of ischemic heart disease and other diseases of the circulatory system
CPT/HCPCS: 93005; 87088; 85025 ×2; 87086; 80048; 36415; 83735 ×2; 84100; 85610; 80061; 85379; 80076; 84443; 87077; 87186; 84484; 80053; 83880; 71275; 71045; 93970; 94760 ×2; 96374; 99285; U0003; Q9967; J1940 ×2; J3475; G0378 ×3; 81003; 81015

== ENCOUNTER 2024-04-07 00:40 | Emergency (ER) | payer OTHER ==
[2024-04-07] MEDS ORDERED: ONDANSETRON 4 MG (ODT) TAB ONE (01:30)
[2024-04-07] MEDS ORDERED: HYDROCODONE/APAP 10/325 TAB ONE (01:30)
[2024-04-07] MEDS ORDERED: APIXABAN 5 MG TABLET ONE (02:20)
--- NOTE | 2024-04-07 02:21 | EDPHYS ---
Physician Documentation [facility] Name: Cherise Harrell Age: 83 yrs Sex: Female : 1940 Arrival Date: 04/07/2024 Time: 00:40 Bed 19 Private MD: ED Physician Gigi Goss HPI: 04/07 02:15 This 83 yrs old Female presents to ER via EMS with complaints of Foot Pain, karissa Knee Pain. 02:15 The patient presents with decreased range of motion, pain, that is acute. The karissa complaints affect the right foot. Context: The problem was sustained at an unknown location. Modifying factors: The symptoms are alleviated by elevation of extremity, the symptoms are aggravated by movement, wearing shoes. Associated signs and symptoms: Pertinent positives: swelling. Severity of symptoms: At their worst the symptoms were moderate, in the emergency department the symptoms are unchanged. The patient has experienced similar episodes in the past, several times. Historical: - Allergies: 00:49 Allopurinol; cp4 - PMHx: 00:49 Atrial Fib; blood clots; DVT; Hypertension; cp4 - Immunization history:: Adult Immunizations up to date. - Infectious Disease History:: Denies. - Social history:: Smoking status: Patient denies any tobacco usage or history of. - Family history:: not pertinent. ROS: 02:15 Constitutional: Negative for fever, chills, and weight loss, Eyes: Negative for injury, karissa pain, redness, and discharge, ENT: Negative for injury, pain, and discharge, Neck: Negative for injury, pain, and swelling, Cardiovascular: Negative for chest pain, palpitations, and edema, Respiratory: Negative for shortness of breath, cough, wheezing, and pleuritic chest pain, Abdomen/GI: Negative for abdominal pain, nausea, vomiting, diarrhea, and constipation, Back: Negative for injury and pain, : Negative for injury, bleeding, discharge, and swelling, Skin: Negative for injury, rash, and discoloration, Neuro: Negative for headache, weakness, numbness, tingling, and seizure, Psych: Negative for depression, anxiety, suicide ideation, homicidal ideation, and hallucinations, Allergy/Immunology: Negative for hives, rash, and allergies, Endocrine: Negative for neck swelling, polydipsia, polyuria, polyphagia, and marked weight changes, Hematologic/Lymphatic: Negative for swollen nodes, abnormal bleeding, and unusual bruising, 02:15 MS/extremity: Positive for decreased range of motion, pain, swelling, tenderness, of the right foot, Exam: 02:15 Constitutional: This is a well developed, well nourished patient who is awake, alert, karissa and in no acute distress. Head/Face: Normocephalic, atraumatic. Eyes: Pupils equal round and reactive to light, extra-ocular motions intact. Lids and lashes normal. Conjunctiva and sclera are non-icteric and not injected. Cornea within normal limits. Periorbital areas with no swelling, redness, or edema. ENT: Nares patent. No nasal discharge, no septal abnormalities noted. Tympanic membranes are normal and external auditory canals are clear. Oropharynx with no redness, swelling, or masses, exudates, or evidence of obstruction, uvula midline. Mucous membranes moist. Neck: Trachea midline, no thyromegaly or masses palpated, and no cervical lymphadenopathy. Supple, full range of motion without nuchal rigidity, or vertebral point tenderness. No Meningismus. Chest/axilla: Normal chest wall appearance and motion. Nontender with no deformity. No lesions are appreciated. Cardiovascular: Regular rate and rhythm with a normal S1 and S2. No gallops, murmurs, or rubs. Normal PMI, no JVD. No pulse deficits. Respiratory: Lungs have equal breath sounds bilaterally, clear to auscultation and percussion. No rales, rhonchi or wheezes noted. No increased work of breathing, no retractions or nasal flaring. Abdomen/GI: Soft, non-tender, with normal bowel sounds. No distension or tympany. No guarding or rebound. No evidence of tenderness throughout. Back: No spinal tenderness. No costovertebral tenderness. Full range of motion. Female : Normal external genitalia. Skin: Warm, dry with normal turgor. Normal color with no rashes, no lesions, and no evidence of cellulitis. Neuro: Awake and alert, GCS 15, oriented to person, place, time, and situation. Cranial nerves II-XII grossly intact. Motor strength 5/5 in all extremities. Sensory grossly intact. Cerebellar exam normal. Normal gait. Psych: Awake, alert, with orientation to person, place and time. Behavior, mood, and affect are within normal limits. 02:15 Musculoskeletal/extremity: ROM: intact in all extremities, full active range of motion, full passive range of motion, Circulation is intact in all extremities. Sensation intact. Compartment Syndrome exam of affected extremity: is normal. Weight bearing: able to fully bear weight, with pain, Vital Signs: 00:47 BP 152 / 63; Pulse 84; Resp 18; Temp 97.7; Pulse Ox 98% ; cp4 02:45 BP 113 / 48; Pulse 87; Resp 18; Pulse Ox 99% ; cp4 MDM: 00:45 Patient medically screened. [facility] 04/07 01:10 Order name: Foot Right 3 View XRAY [facility] 04/07 01:10 Order name: Knee Right 3 View XRAY [facility] 04/07 01:10 Order name: US Extremity Venous Unilateral Ltd [facility] 04/07 02:18 Order name: Walking boot; Complete Time: 02:43 karissa Administered Medications: 01:34 Drug: Ondansetron Oral Disintegrating Tablet Oral Disintegrating Tablet 4 mg PO once cp4 Route: PO; 02:00 Follow up: Response: No adverse reaction cp4 01:35 Drug: [place] PO 10 mg-325 mg 1 tabs PO once Route: PO; cp4 02:00 Follow up: Response: No adverse reaction; Pain is decreased cp4 02:22 Drug: Eliquis PO 5 mg PO once Route: PO; cp4 02:49 Follow up: Response: No adverse reaction cp4 Disposition Summary: 04/07/24 02:20 Discharge Ordered Notes: Location: Home karissa Problem: new karissa Symptoms: have improved karissa Condition: Stable karissa Diagnosis - Pain in right foot karissa - Pain in right ankle and joints of right foot karissa - Pain in right knee - tricompartmental arthritis karissa - Obesity, unspecified karissa - FPC (current) use of anticoagulants karissa Followup: karissa - With: Private Physician - When: 2 - 3 days - Reason: Recheck today's complaints, Continuance of care, Re-evaluation by your physician Followup: karissa - With: Ishmael Garcia MD - When: 2 - 3 days - Reason: Recheck today's complaints, Re-evaluation by your physician Discharge Instructions: - Discharge Summary Sheet karissa - Joint Pain karissa - Arthritis karissa - Musculoskeletal Pain karissa - Obesity, Adult karissa - How to Use Cold Therapy, [id number] karissa - Joint Pain, [id number] Forms: - Medication Reconciliation Form karissa - Antibiotic Education karissa - Prescription Opioid Use karissa - Patient Portal Instructions karissa - Leadership Thank You Letter karissa Prescriptions: - acetaminophen-codeine 300-30 mg Oral tablet - take 2 tablet ORAL route every 6 hours as needed for pain; 20 tablet; Refills: karissa 0, Product Selection Permitted Signatures: Dispatcher [employer] EDMS Gigi Goss MD MD cha Potter, Christina cp4 Corrections: (The following items were deleted from the chart) 01:10 01:10 Extremity Venous Uni Ltd+[email or web address].[email or web address] ordered. EDMS EDMS
--- NOTE | 2024-04-07 02:21 | ER ---
Nurse's Notes [facility] Name: Cherise Harrell Age: 83 yrs Sex: Female : 1940 Arrival Date: 04/07/2024 Time: 00:40 Bed 19 Private MD: Diagnosis: Pain in right foot;Pain in right ankle and joints of right foot;Pain in right knee-tricompartmental arthritis;Obesity, unspecified;FPC (current) use of anticoagulants Presentation: 04/07 00:47 Chief complaint: EMS states: Right knee and right foot pain that started 3 days ago. cp4 Coronavirus screen: Client denies travel out of the [place] in the last 14 days. At this time, the client does not indicate any symptoms associated with coronavirus-19. Ebola Screen: Patient negative for fever greater than or equal to 101.5 degrees Fahrenheit, and additional compatible Ebola Virus Disease symptoms Patient denies exposure to infectious person. Patient denies travel to an Ebola-affected area in the 21 days before illness onset. No symptoms or risks identified at this time. Initial Sepsis Screen: Does the patient meet any 2 criteria? No. Patient's initial sepsis screen is negative. Does the patient have a suspected source of infection? No. Patient's initial sepsis screen is negative. Risk Assessment: Do you want to hurt yourself or someone else? Patient reports no desire to harm self or others. Onset of symptoms was April 03, 2024. 00:47 Method Of Arrival: [facility] 00:47 Acuity: RICCARDO 3 cp4 Triage Assessment: 00:49 General: Appears in no apparent distress. comfortable, Behavior is calm, cooperative, cp4 appropriate for age. Pain: Complains of pain in right knee, right foot Pain does not radiate. Pain currently is 7 out of 10 on a pain scale. EENT: No signs and/or symptoms were reported regarding the EENT system. Neuro: Level of Consciousness is awake, alert, obeys commands, Oriented to person, place, time, situation. Cardiovascular: No deficits noted. Respiratory: Airway is patent Respiratory effort is even, unlabored. GI: No signs and/or symptoms were reported involving the gastrointestinal system. : No signs and/or symptoms were reported regarding the genitourinary system. Derm: No signs and/or symptoms reported regarding the dermatologic system. Musculoskeletal: Reports pain in right knee and right foot. Historical: - Allergies: 00:49 Allopurinol; cp4 - PMHx: 00:49 Atrial Fib; blood clots; DVT; Hypertension; cp4 - Immunization history:: Adult Immunizations up to date. - Infectious Disease History:: Denies. - Social history:: Smoking status: Patient denies any tobacco usage or history of. - Family history:: not pertinent. Screenin:[facility] ED Fall Risk Assessment (Adult) History of falling in the last 3 months, cp4 including since admission No falls in past 3 months (0 pts) Confusion or Disorientation No (0 pts) Intoxicated or Sedated No (0 pts) Impaired Gait No (0 pts) Mobility Assist Device Used No (0 pt) Altered Elimination No (0 pt) Score/Fall Risk Level 0 - 2 = Low Risk Oriented to surroundings, Maintained a safe environment, Assessed \T\ reinforced patient's understanding of fall precautions, Hourly rounding (assess needs \T\ fall precautionary measures) done. Abuse screen: Denies threats or abuse. Nutritional screening: No deficits noted. Tuberculosis screening: No symptoms or risk factors identified. Assessment: 00:51 Reassessment: No changes from previously documented assessment. cp4 Vital Signs: 00:47 BP 152 / 63; Pulse 84; Resp 18; Temp 97.7; Pulse Ox 98% ; cp4 02:45 BP 113 / 48; Pulse 87; Resp 18; Pulse Ox 99% ; cp4 ED Course: 00:42 Patient arrived in ED. jj6 00:45 Gigi Goss MD is Attending Physician. karissa 00:46 Mily Figueroa is Primary Nurse. cp4 00:49 Triage completed. cp4 00:49 Arm band placed on right wrist. Patient placed in an exam room, on a stretcher. cp4 00:51 Bed in low position. Call light in reach. Side rails up X 1. cp4 01:49 Foot Right 3 View XRAY In Process Unspecified. EDMS 01:49 Knee Right 3 View XRAY In Process Unspecified. EDMS 01:55 US Extremity Venous Unilateral Ltd In Process Unspecified. EDMS 02:19 Ishmael Garcia MD is Referral Physician. karissa 02:48 Provided Education on: joint pain, arthritis. cp4 02:48 No provider procedures requiring assistance completed. Patient did not have IV access cp4 during this emergency room visit. Administered Medications: 01:34 Drug: Ondansetron Oral Disintegrating Tablet Oral Disintegrating Tablet 4 mg PO once cp4 Route: PO; 02:00 Follow up: Response: No adverse reaction cp4 01:35 Drug: [place] PO 10 mg-325 mg 1 tabs PO once Route: PO; cp4 02:00 Follow up: Response: No adverse reaction; Pain is decreased cp4 02:22 Drug: Eliquis PO 5 mg PO once Route: PO; cp4 02:49 Follow up: Response: No adverse reaction cp4 Medication: 00:51 VIS not applicable for this client. cp4 Outcome: 02:20 Discharge ordered by . karissa 02:48 Discharged to home via wheelchair, cp4 02:48 Condition: stable 02:48 Discharge instructions given to patient, Instructed on discharge instructions, follow up and referral plans. medication usage, Demonstrated understanding of instructions, follow-up care, medications, Prescriptions given X 1, 02:49 Patient left the ED. cp4 Signatures: Dispatcher [employer] EDGigi Helton MD MD cha Jeffries, Jennifer jj6 Potter, Christina cp4
[2024-04-07 02:53] VITALS: TEMP 97.7
[2024-04-07 02:54] VITALS: BP 113/48; O2SAT 99
--- NOTE | 2024-04-07 11:22 | RAD REPORT ---
EXAM DESCRIPTION: Hand Right 3 View CLINICAL HISTORY: PAIN COMPARISON: None TECHNIQUE: 2 views of the right hand. FINDINGS: Normal mineralization. No acute fracture or dislocation. Joint spaces are maintained. IMPRESSION: No acute osseous findings. Electronically signed by: Ric Stack MD 04/07/2024 12:16 AM CDT RP Z9 Due to temporary technical issues with the PACS/Fluency reporting system, reports are being signed by the in house radiologist without review as a courtesy to ensure prompt reporting. The interpreting r adiologist is fully responsible for the content of the report.
--- NOTE | 2024-04-07 11:25 | RAD REPORT ---
EXAM DESCRIPTION: XR FOOT 3 VIEWS RIGHT 04/07/2024 2:00 AM CDT CLINICAL HISTORY: 83 years, Female, Pain. COMPARISON: XR Foot right 09/26/2020. FINDINGS: 3 X-ray views of the right foot (frontal, lateral and oblique projections) were performed. Bones: Osteopenia No areas of acute bony injuries were demonstrated. Questionable minimal deformity d istal portion of the fourth metatarsal could correspond to area of prior fracture. Soft tissues: There is minimal soft tissue swelling within the dorsal aspect of the foot. Joints: No gross articular abnormality is identified. Minimal spurring posterior aspect of the calc aneus. Very minimal degenerative changes midfoot reticulation. Others: There are no gross intraosseous lesions. No periosteal reaction were seen. No definitive di splaced fracture are identified, if symptoms persist, clinical correlation and/or further evaluation with CT scan and/or MRI could be of assistance. IMPRESSION: No areas of acute bony injuries were demonstrated. Questionable minimal deformity distal portion of the fourth metatarsal could correspond to area of prior fracture. Minimal soft tissue swe lling within the dorsal aspect of the foot. Electronically signed by: Thang Sage MD 04/07/2024 02:15 AM CDT Due to temporary technical issues with the PACS/Fluency reporting system, reports are being signed by the in house radiologist without review as a courtesy to ensure prompt reporting. The interpreting r adiologist is fully responsible for the content of the report.
--- NOTE | 2024-04-07 11:27 | RAD REPORT ---
EXAM DESCRIPTION: Extremity Venous Uni Ltd RadLex: US EXTREMITY VEINS UNILATERAL CLINICAL HISTORY: 83 years Female; PAIN TECHNIQUE: Spectral analysis and color/grayscale sonographic images of the right leg were obtained u tilizing a high-frequency linear array transducer supplemented with color Doppler, compression and au gmentation techniques. COMPARISON: None. FINDINGS: Common femoral: normal Greater saphenous: normal Superficial femoral: normal Popliteal: normal Calf Veins: normal IMPRESSION: No sonographic evidence for right lower extremity deep venous thrombosis. Electronically signed by: Ric Stack MD 04/07/2024 02:04 AM CDT RP Z9 Due to temporary technical issues with the PACS/Fluency reporting system, reports are being signed by the in house radiologist without review as a courtesy to ensure prompt reporting. The interpreting r adiologist is fully responsible for the content of the report.
== END 2024-04-07 02:49 | disposition home or self-care (01) ==
LOC: ER 00:40
DX: M79.671 Pain in right foot (principal); M25.571 Pain in right ankle and joints of right foot; M13.861 Other specified arthritis, right knee; E66.9 Obesity, unspecified; Z79.01 Long term (current) use of anticoagulants; Z86.718 Personal history of other venous thrombosis and embolism
CPT/HCPCS: 73630; 73562; 93971; 99283; Q0162